=== PATIENT | female | born 1950 | race Caucasian/White ===

== ENCOUNTER → 2017-05-30 10:12 | Outpatient (CLI) | payer MEDICARE, SELFPAY ==
--- NOTE | 2017-05-30 10:16 | RAD_ITS ---
STUDY: X-RAY - PELVIS REASON FOR EXAM: Female, 67 years old. Hip and pelvic pain TECHNIQUE: One view of the pelvis was obtained. COMPARISON: None. FINDINGS: There is a non-specific bowel gas pattern. Normal visualized soft tissue structures. There is narrowing with cortical sclerosis and osteophyte formation of the sacroiliac joint consistent with degenerative osteoarthritic changes. Normal visualized bilateral superior and inferior pubic rami. Normal pubic symphysis. Normal ischial tuberosities. Normal visualized right femoral head. Normal right acetabulum. Normal right hip joint. Normal visualized left femoral head. Normal left acetabulum. Normal left hip joint. 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 Otherwise, within normal limits Electronically Signed: Josiah Roldan DO at 8:21 EST Tel , Service support ,
[2017-05-30 12:23] LABS: Absolute Neutrophil Count 4.3 X10^3/uL (2.0-7.7); Basophil# 0.03 X10^3/uL; Basophil% 0.4 % (0-1); Eosinophil# 0.17 X10^3/uL; Eosinophils% 2.3 % (0-5); Hematocrit 39.9 % (37-47); Lymphocyte % 32.5 % (19-41); Mean Corp Hgb Conc 32.6 g/gl (32-36); Mean Corpuscular Volume 91.9 fL (81-99); Mean Platelet Vol. 9.8 fl (6.2-12.0); Monocyte# 0.47 X10^3/uL; Monocyte% 6.4 % (0-10); Neutrophil # 4.29 X10^3/uL (2.7-7.7); Neutrophil % 58.1 % (47-70); Platelet Count 363 K/mm3 (150-450); RBC Distribution Width CV 14.5 % (11.6-14.6); RBC Distribution Width SD 47.2 fl (35.1-43.9); Red Blood Count 4.34 M/mm3 (4.2-5.4); White Blood Count 7.4 K/mm3 (4.4-11.0)
[2017-05-30 12:30] LABS: POSITIVE COUNT NO; POSITIVE DIFFERENTIAL NO; POSITIVE MORPHOLOGY NO
[2017-05-30 12:38] LABS: Erythrocyte Sedimentation Rate 25 mm/hr (0-30)
[2017-05-30 12:56] LABS: AST(SGOT) 27 U/L (15-37); Alanine Aminotransfer ALT/SGPT 36 U/L (13-56); Albumin, Serum 3.8 g/dL (3.2-5.0); Alkaline Phosphatase 86 U/L (45-117); Anion Gap 7 (5-15); BUN 19 mg/dL (7-18); BUN/Creat Ratio 25.7 RATIO (10-20); Calcium,Total 9.2 mg/dL (8.5-10.1); Chloride 102 mmol/L (98-107); Creatinine, Serum 0.74 mg/dL (0.55-1.02); EST Glomerular Filtration Rate 83 mL/min (>60); Est Glom Filt Rate - Afr Amer 100 mL/min (>60); Glucose 84 mg/dL (74-106); Protein, Total 7.8 g/dL (6.4-8.2); Rheumatoid Factor < 10.0 IU/mL (<15); Sodium Level 138 mmol/L (136-145)
[2017-05-31 14:07] LABS: SJOGREN'S Anti-SS-A test < 0.2 AI (0.0-0.9); SJOGREN'S Anti-SS-B test < 0.2 AI (0.0-0.9)
[2017-05-31 15:04] LABS: ANTINUCLEAR ANTIBODIES DIRECT Positive (Negative)
[2017-06-05 15:59] LABS: CCP IgG Antibodies > 250 units (0-19); HEPATITIS B SURFACE AG Negative (Negative); HLA B27 Negative (.); Hep B Surface Antibodies Non Reactive (.); Hep C Antibodies <0.1 s/co ratio (0.0-0.9)
== END ==
PROVIDERS: Family Provider Nurse Practitioner Family; PCP Nurse Practitioner Family; Visit Provider Internal Medicine Rheumatology
DX: L40.59 Other psoriatic arthropathy (principal); M79.7 Fibromyalgia; M15.9 Polyosteoarthritis, unspecified; L40.8 Other psoriasis; M21.40 Flat foot [pes planus] (acquired), unspecified foot; Z90.5 Acquired absence of kidney; I10 Essential (primary) hypertension; E78.5 Hyperlipidemia, unspecified
CPT/HCPCS: 36415; 72170; 80053; 81374; 85025; 85652; 86038; 86140; 86200; 86235; 86431; 86706; 86803; 87340

== ENCOUNTER → 2017-08-21 08:40 | Outpatient (CLI) | payer MEDICARE, SELFPAY ==
--- NOTE | 2017-08-21 | IMM_PTH ---
PATIENT: LILIANA COURTNEY [facility] U#:[id number] AGE/SX: 74/F ROOM: RE08/21/[address]: Javier Loyola : 1950 BED: DIS: SPEC #: [id number] RECD: 08/22/17 10:32 STATUS: RAMSEY RECristal #: [id number] ALEK: 08/21/17 00:[address]: Abdulaziz Guaman DEPT: IMMUNOHISTOCHEMISTRY RECD BY: Bettye Masters ENTERED: 08/22/17 10:34 SP TYPE: IMMUNO OTHR DR: Javier Loyola Tissues: Left breast, NOS Procedures: CK5-6 (add) CK8 (add) E-CAD (add) HER2 KEN (add) KI-67 (add) P53 (add) DE (add) ER (initial) Comments: @ Ordering doctor for ER edited from to @ by MIRTHA at 08/22/17 1037 @ Ordering doctor for CK5-6. edited from to @ by MIRTHA at 08/22/17 1037 @ Ordering doctor for CK8. edited from to @ by MIRTHA at 08/22/17 1037 @ Ordering doctor for ECAD. edited from to @ by MIRTHA at 08/22/17 1037 @ Ordering doctor for HER2. edited from to @ by MIRTHA at 08/22/17 1037 @ Ordering doctor for KI67. edited from to DR.RCEBUL Hernandez by MIRTHA at 08/22/17 1037 @ Ordering doctor for P53. edited from to @ by MIRTHA at 08/22/17 1037 @ Ordering doctor for DE. edited from to @ by MIRTHA at 08/22/17 1037 @ Submitting doctor edited from to @ by RGOOD at 08/22/17 1037 PHYSICIAN & [place] [address] SPECIMEN INFORMATION: Tissue Source: Left breast biopsy Clinical Info: Abnormal mammogram Specimen Number: [id number] CPT code: 83927, 74565 x4, 49823 x3 METHODOLOGY: Deparaffinized sections of prefer/formalin-fixed tissue or PAP/DQ stained slides are incubated with monoclonal/polyclonal antibodies/oligonucleotide probes. Localization is made via biotin free immunoperoxidase method. Appropriate controls are performed and reacted as expected. Results on target cell population are indicated in the following table: RESULTS: ANTIBODY / CLONE RESULT E-Cad (ECH-6) positive CK8 (29irtfM28) positive CK5-6 (D5 & 1684) negative Ki-67 (30-9) positive, low P53 (DO-7) positive, rare cells, weak MORPHOMETRIC ANALYSIS ER (clone 6F11) >95%, strong DE (clone 16/1E2) >95%, strong Her-2Neu (clone CB11) 0 The prognostic test for HER2 is performed on formalin-fixed paraffin embedded tissue. A 3+ (positive) staining pattern is defined as intense, homogeneous, complete, circumferential membranous staining in >10% of contiguous tumor cells. A similar weak (2+) staining pattern is interpreted as equivocal. SOLEDAD follow-up testing is recommended for all equivocal cases. Positivity/negativity for ER/DE is reported if > or < 1% of the tumor cells are immuno- reactive, respectively. The ASCO/CAP criteria is used for scoring. Reference: Journal of Clinical Oncology, 2013; 31:8444-4884 & 2010; 16:7907-3477. Duration of fixation: 11 Hrs; Sample Adequate: Yes. These assays have not been validated on decalcified tissues. Results should be interpreted with caution given the likelihood of false negativity on decalcified specimens. These tests were developed and their performance characteristics determined by [facility]. They may not have been cleared or approved by the U.S. Food and Drug Administration. The FDA has determined that such clearance or approval is not necessary. INTERPRETATION: Left breast, ultrasound-guided needle core biopsy: Invasive ductal carcinoma with mucinous features, nuclear grade 1. Positive for estrogen receptors (favorable prognostic indicator). Positive for progesterone receptors (favorable prognostic indicator). Negative for overexpression of WFG5qce. SJ:ramin 08/22/17
--- NOTE | 2017-08-21 08:40 | BRBX_PTH ---
PATIENT: LILIANA COURTNEY LOC: [facility] U#:[id number] AGE/SX: 74/F ROOM: RE08/21/[address]: Javier Loyola : 1950 BED: DIS: SPEC #: [id number] RECD: 08/21/17 09:52 STATUS: RAMSEY JAMES #: [id number] ALEK: 08/21/17 08:[address]: Abdulaziz Guaman DEPT: SURGICAL PATHOLOGY RECD BY: Tarun Thomas ENTERED: 08/21/17 12:42 SP TYPE: BREAST BX OTHR DR: Javier Loyola Tissues: Left breast, NOS Procedures: Surgery Specimen Level IV Comments: @ Ordering doctor for SUIV edited from to @ by MIRTHA at 08/21/17 1541 @ Submitting doctor edited from to @ by MIRTHA at 08/21/17 1541 HEADER OPERATION: Ultrasound-guided needle core biopsy left breast PRE-OP DIAGNOSIS: Abnormal mammogram R92.8 TISSUE SUBMITTED: Left breast biopsy ISCHEMIC TIME: 1 minute FIXATION TIME: 11 hours MICROSCOPIC DIAGNOSIS Left breast, ultrasound-guided core biopsy: Invasive ductal carcinoma with mucinous features, nuclear grade 1 (0.6 cm in greatest length). See comment. DINO:ramin 08/22/17 COMMENT Immunohistochemistry ([id number]) supports the above diagnosis. ER/HI/Txz3fwc studies are being performed on sections of tumor and the results from this study will be reported separately ([id number]). MICROSCOPIC DESCRIPTION Slides are reviewed. GROSS DESCRIPTION Received in fixative is one container labeled with the patient's name and designated left breast. The specimen consists of multiple elongated fragments of salinas-yellow fibroadipose tissue that in aggregate measure 2 x 0.5 x 0.1 cm. The entire specimen is submitted in one cassette. / DINO:ramin 08/21/17 TC:0 CPT: 61331 ADDENDUM ADDENDUM ADDENDUM ADDENDUM ADDENDUM ADDENDUM ADDENDUM ADDENDUM 10/09/2017 08:19 ADDENDUM 10/09/2017 08:19 ADDENDUM 10/09/2017 08:19 ADDENDUM 10/09/2017 08:19 ADDENDUM 10/09/2017 08:19 An order for Oncotype testing was received from Dr. Isabel Diggs. This necessitated case review, block and slide selection by pathologist at [facility]. Breast Cancer Recurrence Score = 17 Results of the complete Oncotype testing ([email or web address] report) are viewable in EMR under: Reports - Pathology - Lab Pathology Report, Scanned.
== END ==
PROVIDERS: Family Provider Nurse Practitioner Family; PCP Nurse Practitioner Family; Visit Provider Nurse Practitioner Family
DX: C50.912 Malignant neoplasm of unspecified site of left female breast (principal)
CPT/HCPCS: 88305; 88341; 88342

== ENCOUNTER → 2017-08-30 10:21 | Outpatient (CLI) | payer MEDICARE, SELFPAY ==
--- NOTE | 2017-08-30 10:27 | MRI_ITS ---
STUDY: BILATERAL BREAST MR WITHOUT AND WITH CONTRAST REASON FOR EXAM: Female, 67 years old. History of bilateral breast reduction surgery. Palpable lump in left breast. Left breast biopsy August 23, 2017 showed invasive duct carcinoma with mucinous features. TECHNIQUE: Multi-sequence multi-echo imaging of both breasts was performed with a dedicated breast coil. T1-weighted and T2-weighted images were performed before the administration of contrast. T1-weighted images were also performed after the administration of 10 mL of Gadavist contrast intravenously without complications. COMPARISON: Bilateral mammograms dated August 17, 2017 and Limited left breast ultrasound dated August 17, 2017. FINDINGS: RIGHT BREAST: The breast tissue is fatty with minimal background enhancement. There are no abnormal enhancing masses or areas of non-mass enhancement in the right breast. LEFT BREAST: The breast tissue is fatty with minimal background enhancement. There is a tissue clip marker in the left breast in the area of the biopsy (axial series 500 images 198-to 10). The mass seen on the mammogram and the ultrasound study is actually not identified on the MRI scan. There are no abnormal enhancing masses or areas of non-mass enhancement in the left breast. There are normal-appearing lymph nodes in both axillary. There is no abnormality in the visualized regions of the chest or liver. MRI/Breast w/o and/or W Cont Bilat IMPRESSION: Tissue clip marker in the left breast in the area of the biopsy was no enhancing mass. No other significant abnormality. CATEGORY: BIRADS Category 6: Known Biopsy-Proven Malignancy - Appropriate Action Should Be Taken. A letter regarding these results will be sent to the patient by the facility within 30 days. Electronically Signed: Zachariah Hall MD at 10:40 EDT , Service support ,
== END ==
LOC: MRI 10:22
PROVIDERS: Family Provider Nurse Practitioner Family; PCP Nurse Practitioner Family; Visit Provider Surgery
DX: N63.20 Unspecified lump in the left breast, unspecified quadrant (principal); C50.919 Malignant neoplasm of unspecified site of unspecified female breast
CPT/HCPCS: 77059; A9585; A4216; C8908

== ENCOUNTER 2017-09-06 08:36 | Day surgery (SDC) | payer MEDICARE, SELFPAY ==
--- NOTE | 2017-08-31 08:59 | EKG12_ITS ---
Test Reason : PRE OP Blood Pressure : / mmHG Vent. Rate : 068 BPM Atrial Rate : 068 BPM P-R Int : 166 ms QRS Dur : 082 ms QT Int : 360 ms P-R-T Axes : 040 019 040 degrees QTc Int : 382 ms Normal sinus rhythm Low voltage QRS Borderline ECG Confirmed by IRA BURNETTE, CHONG ([id number]), brands editor CORKY MONET ([id number]) on 09/03/2017 2:56:47 PM Referred By: Abdulaziz Guaman Confirmed By:CHONG ROTH MD
--- NOTE | 2017-08-31 09:07 | RAD_ITS ---
STUDY: X-RAY CHEST REASON FOR EXAM: Female, 67 years old. Preoperative evaluation. History of breast cancer. TECHNIQUE: PA and lateral views of the chest. COMPARISON: None. FINDINGS: The lungs are clear and expanded. Scattered calcified granulomas. There is no demonstrated pleural abnormality. Normal size heart. Normal mediastinum and estee. Normal visualized pulmonary arteries. There is atherosclerotic calcification of the aortic arch with tortuosity. There are diffuse degenerative changes of the visualized thoracic spine. Normal visualized ribs, clavicles, and shoulders. There is no demonstrated abnormality of the visualized soft tissue structures of the upper abdomen. RAD/Chest PA and Lateral IMPRESSION: Normal x-ray examination of the chest. Electronically Signed: Salinas Neal MD at 9:34 EDT Tel [phone], Service support ,
[2017-08-31 09:26] LABS: Hematocrit 37.7 % (37-47); Hemoglobin 12.4 g/dl (12.0-15.0); Mean Corp Hgb Conc 32.9 g/gl (32-36); Mean Corpuscular Hgb 30.4 pg (27.0-32.0); Mean Corpuscular Volume 92.4 fL (81-99); Mean Platelet Vol. 9.5 fl (6.2-12.0); Platelet Count 365 K/mm3 (150-450); RBC Distribution Width CV 14.4 % (11.6-14.6); RBC Distribution Width SD 47.2 fl (35.1-43.9); Red Blood Count 4.08 M/mm3 (4.2-5.4); Scan Indicated on CBC? Y/N NO; White Blood Count 9.5 K/mm3 (4.4-11.0)
[2017-08-31 09:54] LABS: ALB/GLOB Ratio 0.9 RATIO (0.9-2.4); AST(SGOT) 14 U/L (15-37); Alanine Aminotransfer ALT/SGPT 22 U/L (13-56); Albumin, Serum 3.6 g/dL (3.2-5.0); Alkaline Phosphatase 73 U/L (45-117); Anion Gap 8 (5-15); BUN 15 mg/dL (7-18); BUN/Creat Ratio 18.8 RATIO (10-20); Calcium,Total 9.1 mg/dL (8.5-10.1); Chloride 105 mmol/L (98-107); EST Glomerular Filtration Rate 76 mL/min (>60); Est Glom Filt Rate - Afr Amer 92 mL/min (>60); Globulin 3.9 g/dL (2.2-4.2); Glucose 109 mg/dL (74-106); Potassium 4.2 mmol/L (3.5-5.1); Protein, Total 7.5 g/dL (6.4-8.2); Sodium Level 140 mmol/L (136-145)
[2017-09-06] VITALS (11 sets, daily range): BP systolic 105–133; BP diastolic 55–97; PULSE 72–88; RESP 16; TEMP 35.8–36.7; O2SAT 92–99; BMI 37.5
--- NOTE | 2017-09-06 | IMM_PTH ---
PATIENT: LILIANA COURTNEY LOC: [facility] [place] U#:[id number] AGE/SX: 67/F ROOM: RE09/06/[address]: Dr. Abdulaziz Guaman MD : 1950 BED: DIS: 09/06/2017 SPEC #: [id number] RECD: 09/11/17 12:33 STATUS: RAMSEY REQ #: [id number] ALEK: 09/06/17 00:[address]: Abdulaziz Guaman DEPT: IMMUNOHISTOCHEMISTRY RECD BY: Bettye Masters ENTERED: 09/11/17 12:34 SP TYPE: IMMUNO OTHR DR: Javier Loyola, REINIER-Stefano Tissues: A - Axillary lymph node, NOS Procedures: CK7 (add) Pankeratin (initial) PHYSICIAN & INSTITUTION [place] [address] SPECIMEN INFORMATION: Tissue Source: A ? Left sentinel lymph node biopsy Clinical Info: Malignant neoplasm of lower inner quadrant of left breast Specimen Number: [id number] CPT code: 22822, 03831 METHODOLOGY: Deparaffinized sections of prefer/formalin-fixed tissue or PAP/DQ stained slides are incubated with monoclonal/polyclonal antibodies/oligonucleotide probes. Localization is made via biotin free immunoperoxidase method. Appropriate controls are performed and reacted as expected. Results on target cell population are indicated in the following table: RESULTS: ANTIBODY / CLONE RESULT Block A1 AE1-3 (AE1/AE3/PCK26) negative CK7 (OV-TL12/30) negative These tests were developed and their performance characteristics determined by [facility]. They may not have been cleared or approved by the U.S. Food and Drug Administration. The FDA has determined that such clearance or approval is not necessary. INTERPRETATION: A. Left sentinel lymph node, biopsy: One lymph node, negative for metastatic carcinoma. SJ:ramin 09/12/17
--- NOTE | 2017-09-06 | AXNB_PTH ---
PATIENT: LILIANA COURTNEY LOC: [facility] [place] U#:[id number] AGE/SX: 67/F ROOM: RE09/06/[address]: Dr. Abdulaziz Guaman MD : 1950 BED: DIS: 09/06/2017 SPEC #: [id number] RECD: 09/06/17 11:09 STATUS: RAMSEY RECristal #: [id number] ALEK: 09/06/17 00:[address]: Abdulaziz Guaman DEPT: SURGICAL PATHOLOGY RECD BY: Bettye Masters ENTERED: 09/06/17 12:34 SP TYPE: AX NODE BX OTHR DR: Javier Loyola, LYE BOILER-C Tissues: A - Axillary lymph node, NOS B - Left breast, NOS Procedures: Frozen Section (charge) Surgery Specimen Level V Frozen (no charge) HEADER OPERATION: Breast lumpectomy, sentinel node, ultrasound-guided NL PRE-OP DIAGNOSIS: Malignant neoplasm of lower inner quadrant of left breast TISSUE SUBMITTED: A ? Left breast sentinel lymph node to path at 1106, B ? Left breast mass ? wire comes out lateral, short stitch superior, skin anterior, to mammography at 1116 FROZEN SECTION DIAGNOSIS A. Left sentinel lymph node, biopsy: One lymph node, negative for metastatic carcinoma. SJ:ramin 09/06/17 MICROSCOPIC DIAGNOSIS A. Left sentinel lymph node, biopsy: One lymph node, negative for metastatic carcinoma. B. Left breast mass, lumpectomy with needle localization: Invasive mucinous carcinoma (colloid carcinoma). See cancer summary below. INVASIVE BREAST CANCER SUMMARY: Specimen ? partial breast Procedure ? excision with wire-guided localization Lymph node sampling ? sentinel lymph node Specimen integrity ? single intact specimen Specimen size ? 5.5 x 5 x 3 cm Specimen laterality - left Tumor site ? lower inner quadrant (as per clinical information) Tumor size ? 0.8 x 0.7 x 0.6 cm (measured microscopically). See comment. Tumor focality ? single focus of invasive carcinoma Macroscopic and Microscopic extent of tumor: Skin ? invasive carcinoma does not invade into the dermis or epidermis Nipple ? not applicable Skeletal muscle - not applicable Ductal carcinoma in situ (DCIS) ? no ductal carcinoma in situ is present. Lobular carcinoma in situ (LCIS) ? not identified Histologic type of invasive carcinoma ? invasive mucinous carcinoma (colloid carcinoma) Histologic Grade (Juan grade): Glandular/tubular differentiation - score 2 Nuclear pleomorphism - score 1 Mitotic count ? score 1 Overall grade - 1 (score of 4) Margins: Margins uninvolved by invasive carcinoma. The tumor is 1 cm away from the closest superior margin. Treatment effect: Response to presurgical (neoadjuvant) therapy - no known presurgical therapy. Lymph-Vascular invasion ? not identified Dermal lymph-vascular invasion - not identified Lymph nodes: Number of sentinel lymph nodes examined - 1 Total number of lymph nodes examined (sentinel and nonsentinel) - 1 Number of lymph nodes with macrometastases, micrometastases and isolated tumor cells - 0 Method of evaluation of sentinel lymph nodes - H & E, multiple levels and IHC. Distance metastasis ? not applicable Additional pathologic findings ? intraductal hyperplasia with focal atypia. Changes consistent with previous biopsy site. Ancillary studies - previously performed on section of tumor ([id number] / [id number]). ER ? positive (>95%, strong) NV - positive (>95%, strong) Her2 elsie ? negative (0) Microcalcifications ? not identified Clinical history - Please make reference to previous specimen ([id number]) left breast, ultrasound-guided core biopsy with diagnosis of invasive ductal carcinoma with mucinous features. PATHOLOGIC STAGE: pT1b pN0(sn) Mx The above summary is in compliance with [employer] of [employer] [place] Path[employer] (CAP) Cancer Protocols Checklist and [place] Joint Committee on Cancer (AJCC), Staging Manual, 8th Ed. SJ:ramin 09/11/17 COMMENT A. The lymph node is negative for metastatic carcinoma on multiple H & E levels and immunohisto-chemical stains for cytokeratins ([id number]). B. The tumor is present in two blocks (#3 and 4). Case has been reviewed in consultation with Dr. Schilling who concurs with the above diagnosis. IDC:AM MICROSCOPIC DESCRIPTION Slides are reviewed. GROSS DESCRIPTION A - Received fresh for frozen section diagnosis labeled with the patient's name is a specimen designated left breast sentinel lymph node. The specimen consists of a piece of adipose tissue containing one nodule consistent with lymph node measuring 4.5 x 3.5 x 1.5 cm. The lymph node measures 1 cm in greatest dimension. The entire specimen is submitted in two cassettes as follows: 1 ? frozen section, one lymph node bisected, 2 ? rest of the specimen. / :ramin 09/06/17 B - Received fresh for intraoperative consultation labeled with the patient's name is a specimen designated left breast mass. The specimen consists of a piece of fibroadipose tissue with needle localization measuring 5.5 x 5 x 3 cm. A piece of skin is noted anteriorly measuring 3 x 1.2 cm. The specimen is oriented as follows: wire ? lateral, short stitch ? superior, skin anterior. The specimen is inked as follows: anterior ? yellow, posterior ? black, superior ? blue, inferior ? green, medial ? red and lateral ? blue. Serial sections reveal a biopsy cavity measuring 1 x 1 x 0.5 cm. This cavity is 1 cm away from the closest superior margin of the specimen. This information is conveyed to the surgeon intraoperatively. Sections of the rest of the tissue reveal yellow adipose cut surfaces mixed with salinas-white fibrous area. Middle [employer] sections are submitted in eight cassettes as follows: 1 - perpendicular medial, lateral and inferior margins, 2 ? perpendicular anterior and posterior margins and skin, 3 & 4 ? entire biopsy cavity with surrounding tissue (3 contains closest superior margin), 5-9 - sales representative health insurance sections from the other areas. / DINO:ramin 09/07/17 TC:0 CPT: 51688 x2, 36413, 11004
[2017-09-06] MEDS: Bupivacaine Mpf 0.5% 30 ML VIAL (10:11)
--- NOTE | 2017-09-06 10:24 | PCM.DC.BS ---
Discharge Diet: No Restrictions Discharge Activity: May Not Drive - for 2-3 days or while taking narcotic pain meds. May shower in (days): 1 Lifting Restrictions: 10 pounds for 1 week. Call your doctor if your incision/area has: Continuous Slow Oozing, Sudden Increased Bleeding Call your doctor if you observe: Fever of 101 or Higher Suture Line Care: Avoid Pulling/Pushing, Avoid Pinching/Bending Remove Dressing in (days):: 1 - Remove bulky dressing tomorrow. May leave any opsite dressing for 3-4 days[address] Keep dressing in place until your follow-up appointment. Additional Dressing/Incision Instructions:: Remove bulky dressing tomorrow. May leave any opsite dressing for 3-4 days. Keep dressing in place until your follow-up appointment. Allergies/Adverse Reactions: Allergies Penicillins Allergy (Mild, Verified 08/30/17 15:32) itching Medications to take at Discharge betamethasone dipropionate 0.05 % topical ointment 1 applic TOPICAL QDAY 08/21/17 calcium carbonate 600 mg calcium (1,500 mg) tablet 600 mg PO QDAY tab 08/21/17 cholecalciferol (vitamin D3) 2,000 unit capsule 2,000 unit PO QDAY 08/21/17 duloxetine 30 mg capsule,delayed release 30 mg PO QDAY 08/21/17 etodolac 500 mg tablet 500 mg PO PRN PRN tab 08/21/17 fluticasone 50 mcg/actuation nasal spray,suspension 1 spray INTRANASAL PRN PRN 08/21/17 folic acid 1 mg tablet 1 mg PO QDAY 08/21/17 lisinopril 40 mg tablet 40 mg PO QDAY 08/21/17 lovastatin 40 mg tablet 40 mg PO QDAY 08/21/17 methotrexate sodium 2.5 mg tablet 20 mg PO MO tab 08/21/17 multivitamin,tu-rpyu-hxnbceam tablet 1 tab PO QDAY 08/21/17 olopatadine 0.1 % eye drops 1 drp OPHTHALMIC QHS 08/21/17 turmeric root extract 500 mg capsule 500 mg PO BID 08/21/17 vitamin E (dl, acetate) 400 unit capsule 400 unit PO QDAY 08/21/17 Cetirizine HCl [Zyrtec] 10 mg PO DAILY 08/30/17 Hydrocodone Bitart/Apap 5-325 [[place] 5MG-325MG] 1 tablet PO Q6H PRN PRN 3 Days #10 tablet 09/06/17 The following prescriptions were given: Hydrocodone Bitart/Apap 5-325 [[place] 5MG-325MG] 1 tablet PO Q6H PRN PRN 3 Days #10 tablet PRN Reason: Pain Primary Care Physician: Javier Loyola, CERTIFIED NOVELL ADMINISTRATOR-C [Primary Care Provider] - Please Follow Up With: Abdulaziz Guaman MD When: [phone] Office appt approximately 10 days Please Follow Up With:
--- NOTE | 2017-09-06 11:20 | BI_ITS ---
SURGICAL BREAST SPECIMEN RADIOGRAPH CLINICAL: Document presence of tissue clip marker in biopsy specimen. FINDINGS: Specimen shows presence of tissue clip marker. Electronically Signed: Salinas Neal MD at 13:46 EDT Tel [phone], Service support , BI/Breast Biopsy Specimen
--- NOTE | 2017-09-06 11:36 | OP.PCM_ITS ---
Problem List (1) Breast cancer Status: Acute Qualifiers: Breast location: lower inner quadrant of breast Estrogen receptor status: positive Patient sex: female Laterality: left Qualified Code(s): C50.312 - Malignant neoplasm of lower-inner quadrant of left female breast; Z17.0 - Estrogen receptor positive status [ER+] Report of Operation Date of Procedure: 09/06/17 Pre-Operative Diagnosis: Invasive ductal carcinoma lower inner left breast 7 o' clock position Post-Operative Diagnosis: Same Surgery/Procedure Performed:: Ultrasound-guided wire localization lower inner left breast with wire localized lumpectomy and blue dye left axillary sentinel lymph node biopsy Description of Surgical Findings:: Timeout and informed consent was obtained. 67-year-old female was taken to the operating. General general anesthesia. The left arm was carefully wrapped with soft roll and placed at right angles to the table. The left periareolar breast was prepped with alcohol. 4 cc of methylene blue dye was used. This was then chased with 10 cc of saline. Massage was performed for 3 minutes. The left breast was sterilely prepped and draped. Under ultrasound guidance the 7:00 lesion was identified with a marking clip in place. A 20-gauge Kopans needle was advanced under ultrasound guidance into the lesion. The wire was displaced. Imaging demonstrated excellent localization. A transverse oblique incision was made in the left axilla. Sharp dissection carried down through the substance tissue. Hemostasis obtained with electrocautery. 2 lymphatic channels were identified draining to the same blue lymph node. This was dissected free. Some additional deeper fibrofatty tissue was resected. Visual inspection and palpation failed to reveal any additional enlarged lymph nodes. Node removed was not enlarged or otherwise suspicious. Visualization would reveal any additional blue dye tracking. Hemostasis was nicely intact. That wound was 3-0 Vicryl and the skin edges proximate running septic or 4 Monocryl. 0.5% Marcaine was used as local anesthetic and it was anesthetized. The patient's 7:00 infra-areolar lower inner left breast lesion was identified. Patient has had previous breast reduction surgery. Because of its positioning only means of excision was to do a vertical elliptical excision. I performed that used electrocautery to completely dissect around the lesion. The wire was utilized to assist with that resection. Specimen was excised intact sent for mammography with a lesion and marking clip in question was identified. The specimen was then sent to pathology and the biopsy cavity and clear margin was identified. The wound was irrigated with saline. The wound was approximated deep layer of interrupted 3-0 Vicryl and the skin edges approximated with interrupted 4 Monocryl subdermal stitches. Again the 0.5% Marcaine was used as local anesthetic. Throughout the procedure total 30 cc was used. Steri-Strips Telfa OpSite bulky dry dressings applied. Sponge instrument and needle count were reported to the surgeon to be correct. Blood loss was quite minimal. She tired procedure well was taken to the recovery or insect condition without apparent complication. Drains none. Specimens left axillary sentinel lymph node and left lower inner breast mass. Blood loss minimal. Abdulaziz Guaman M.D., F.A.C.S. Type of Anesthesia:: General Anesthesiologist: Todd Castillo
== END 2017-09-06 14:49 | disposition home or self-care (01) ==
LOC: SDC 08:37 → AC 08:38
PROVIDERS: Family Provider Nurse Practitioner Family; PCP Nurse Practitioner Family; Visit Provider Surgery
PROC: (CPT 19301; principal; 2017-09-06 10:00)
DX: C50.312 Malignant neoplasm of lower-inner quadrant of left female breast (principal); Z17.0 Estrogen receptor positive status [ER+]; I10 Essential (primary) hypertension; G25.81 Restless legs syndrome; K58.9 Irritable bowel syndrome, unspecified; M06.9 Rheumatoid arthritis, unspecified; Z79.899 Other long term (current) drug therapy; E78.5 Hyperlipidemia, unspecified; L40.9 Psoriasis, unspecified
CPT/HCPCS: 19301; 38525; 38900; 36415; 71046; 76098; 80053; 85027; 88305; 88307; 88331; 88341; 88342; 93005; J7120; J2405; J3490

== ENCOUNTER → 2017-09-17 15:26 | Outpatient (CLI) | payer MEDICARE, SELFPAY ==
--- NOTE | 2017-09-17 15:26 | DT_ITS ---
This patient was seen during an EMR downtime September 17, 2017 - September 24, 2017. This patient may have a combination of paper and electronic documentation or all paper documentation. All documentation is viewable within the e-chart portion of [employer] for each patient visit.
[2017-09-21 22:06] LABS: Color, Urine Yellow (Yellow); Glucose, Dipstick NEGATIVE (Normal); Ketone-Dipstick Negative (Negative); Protein-Dipstick 15 mg/dl (Negative); Specific Gravity, Urine 1.025 (1.002-1.030); Urine Bilirubin Dipstick Negative (Negative); Urine Clarity Sl Cloudy (Clear)
[2017-09-21 22:07] LABS: Leukocyte Esterase-Dipstick 2+ /ul (Negative); Nitrite-Dipstick Positive (Negative); Occult Blood-Urine 50 /ul (Negative); Urine Urobilinogen Normal (Normal)
[2017-09-21 22:57] LABS: Hematocrit 37.4 % (37-47); Hemoglobin 11.7 g/dl (12.0-15.0); Mean Corp Hgb Conc 31.3 g/gl (32-36); Mean Corpuscular Hgb 29.6 pg (27.0-32.0); Mean Corpuscular Volume 94.7 fL (81-99); Mean Platelet Vol. 10.1 fl (6.2-12.0); Neutrophil % 65.3 % (47-70); POSITIVE COUNT NO; POSITIVE DIFFERENTIAL NO; POSITIVE MORPHOLOGY NO; Platelet Count 353 K/mm3 (150-450); RBC Distribution Width CV 14.3 % (11.6-14.6); RBC Distribution Width SD 46.3 fl (35.1-43.9); Red Blood Count 3.95 M/mm3 (4.2-5.4); White Blood Count 11.3 K/mm3 (4.4-11.0)
[2017-09-21 22:58] LABS: Absolute Lymphocyte Count 2.95 X10^3/ul (0.83-4.51); Absolute Neutrophil Count 7.4 X10^3/uL (2.0-7.7); Basophil# 0.02 X10^3/uL; Basophil% 0.2 % (0-1); Eosinophil# 0.13 X10^3/uL; Eosinophils% 1.1 % (0-5); Lymphocyte # 2.95 X10^3/ul (4.0); Monocyte# 0.79 X10^3/uL; Neutrophil # 7.41 X10^3/uL (2.7-7.7)
[2017-09-24 17:09] LABS: Protein, Urine (Random) 9.5 mg/dL (<11.9); Protein:Creat Ratio 60 mg/g CRE (0-200)
[2017-09-24 17:10] LABS: ALB/GLOB Ratio 1.1 RATIO (0.9-2.4); AST(SGOT) 19 U/L (15-37); Alanine Aminotransfer ALT/SGPT 23 U/L (13-56); Albumin, Serum 3.7 g/dL (3.2-5.0); Alkaline Phosphatase 79 U/L (45-117); BUN 22 mg/dL (7-18); BUN/Creat Ratio 23.7 RATIO (10-20); Chloride 104 mmol/L (98-107); Creatinine, Serum 0.93 mg/dL (0.55-1.02); EST Glomerular Filtration Rate 64 mL/min (>60); Est Glom Filt Rate - Afr Amer 78 mL/min (>60); Globulin 3.4 g/dL (2.2-4.2); Glucose 105 mg/dL (74-106); Protein, Total 7.1 g/dL (6.4-8.2); Sodium Level 142 mmol/L (136-145)
[2017-09-24 17:11] LABS: Anion Gap 11 (5-15)
== END ==
PROVIDERS: Family Provider Nurse Practitioner Family; PCP Nurse Practitioner Family; Visit Provider Internal Medicine Rheumatology
DX: L40.59 Other psoriatic arthropathy (principal); Z79.899 Other long term (current) drug therapy; M35.00 Sjogren syndrome, unspecified; M79.7 Fibromyalgia; M15.9 Polyosteoarthritis, unspecified; L40.8 Other psoriasis
CPT/HCPCS: 36415; 80053; 81002; 82570; 84156; 85025; 86038; 86160; 86225; 86235

== ENCOUNTER 2018-04-01 12:20 | Outpatient (RCR) | payer MEDICARE, SELFPAY ==
[2017-10-23 09:58] VITALS: BMI 37.2
[2018-01-17 11:37] VITALS: BMI 35.9
[2018-04-01 13:45] LABS: Absolute Lymphocyte Count 2.58 X10^3/ul (0.83-4.51); Absolute Neutrophil Count 5.1 X10^3/uL (2.0-7.7); Basophil# 0.03 X10^3/uL; Basophil% 0.4 % (0-1); Eosinophil# 0.18 X10^3/uL; Eosinophils% 2.1 % (0-5); Hematocrit 37.7 % (37-47); Hemoglobin 12.1 g/dl (12.0-15.0); Lymphocyte # 2.58 X10^3/ul (4.0); Lymphocyte % 30.2 % (19-41); Mean Corp Hgb Conc 32.1 g/gl (32-36); Mean Corpuscular Hgb 30.3 pg (27.0-32.0); Mean Corpuscular Volume 94.5 fL (81-99); Mean Platelet Vol. 9.8 fl (6.2-12.0); Monocyte# 0.59 X10^3/uL; Monocyte% 6.9 % (0-10); Neutrophil # 5.11 X10^3/uL (2.7-7.7); Neutrophil % 59.9 % (47-70); Platelet Count 356 K/mm3 (150-450); RBC Distribution Width CV 14.6 % (11.6-14.6); Red Blood Count 3.99 M/mm3 (4.2-5.4); White Blood Count 8.5 K/mm3 (4.4-11.0)
[2018-04-01 13:46] LABS: POSITIVE COUNT NO; POSITIVE DIFFERENTIAL NO; POSITIVE MORPHOLOGY NO
[2018-04-01 13:55] LABS: AST(SGOT) 12 U/L (15-37); Alanine Aminotransfer ALT/SGPT 22 U/L (13-56); Albumin, Serum 3.7 g/dL (3.2-5.0); Alkaline Phosphatase 83 U/L (45-117); Anion Gap 5 (5-15); BUN 17 mg/dL (7-18); BUN/Creat Ratio 22.2 RATIO (10-20); Calcium,Total 8.9 mg/dL (8.5-10.1); Chloride 104 mmol/L (98-107); Creatinine, Serum 0.77 mg/dL (0.55-1.02); EST Glomerular Filtration Rate 79 mL/min (>60); Est Glom Filt Rate - Afr Amer 96 mL/min (>60); Globulin 3.8 g/dL (2.2-4.2); Glucose 99 mg/dL (74-106); Potassium 4.1 mmol/L (3.5-5.1); Protein, Total 7.5 g/dL (6.4-8.2); Sodium Level 138 mmol/L (136-145)
--- OUTSIDE RECORDS SUMMARY | 2018-07-04 02:44 | XMS RPT_ITS ---
:1950 Author Organization OHIP Support Name Relationship Address Phone R Unavailable Unavailable Unavailable TARLETON JAKE Unavailable [address] + [place] [address] TARLETON, CLAUDIA Unavailable Unavailable + R Unavailable Unavailable Unavailable TARLETON, JAKE Unavailable [address] + [place] [address] TARLETON, CLAUDIA Unavailable Unavailable + R Unavailable Unavailable Unavailable TARLETON, JAKE Unavailable [address] + [place] [address] TARLETON, CLAUDIA Unavailable Unavailable + TARLETON JAKE Unavailable Unavailable + TARLETON JAKE Unavailable Unavailable + R Unavailable Unavailable Unavailable TARLETON, JAKE Unavailable [address] + [place] [address] TARLETON, CLAUDIA Unavailable Unavailable + R Unavailable Unavailable Unavailable TARLETON JAKE Unavailable [address] + [place] [address] TARLETON, CLAUDIA Unavailable Unavailable + R Unavailable Unavailable Unavailable TARLETON JAKE Unavailable [address] + [place] [address] TARLETON, CLAUDIA Unavailable . + [place] [address] R Unavailable Unavailable Unavailable TARLETON JAKE Unavailable [address] + [place] [address] TARLETON, CLAUDIA Unavailable . + [place] [address] R Unavailable Unavailable Unavailable TARLETON JAKE Unavailable [address] + [place] [address] TARLETON, CLAUDIA Unavailable . + [place] [address] R Unavailable Unavailable Unavailable TARLETON, JAKE Unavailable [address] + [place] [address] TARLETON, CLAUDIA Unavailable . + [place] [address] R Unavailable Unavailable Unavailable TARLETON, JAKE Unavailable [address] + [place] [address] TARLETON, CLAUDIA Unavailable . + [place] [address] R Unavailable Unavailable Unavailable TARLETON, JAKE Unavailable [address] + [place] [address] TARLETON, CLAUDIA Unavailable . + [place] [address] R Unavailable Unavailable Unavailable TARLETON, JAKE Unavailable [address] + [place] [address] TARLETON, CLAUDIA Unavailable Unavailable + R Unavailable Unavailable Unavailable TARLETON, JAKE Unavailable [address] + [place] [address] TARLETON, CLAUDIA Unavailable . + [place] [address] R Unavailable Unavailable Unavailable TARLETON, JAKE Unavailable [address] + [place] [address] TARLETON, CLAUDIA Unavailable . + [place] [address] R Unavailable Unavailable Unavailable TARLETON, JAKE Unavailable [address] + [place] [address] TARLETON, CLAUDIA Unavailable . + [place] [address] R Unavailable Unavailable Unavailable TARLETON, JAKE Unavailable [address] + [place] [address] TARLETON, CLAUDIA Unavailable Unavailable + [place] [address] R Unavailable Unavailable Unavailable TARLETON, JAKE Unavailable [address] + [place] [address] TARLETON, CLAUDIA Unavailable Unavailable + [place] [address] R Unavailable Unavailable Unavailable TARLETON, JAKE Unavailable [address] + [place] [address] TARLETON, CLAUDIA Unavailable . + [place] [address] R Unavailable Unavailable Unavailable TARLETON, JAKE Unavailable [address] + [place] [address] TARLETON, CLAUDIA Unavailable Unavailable + [place] [address] [place] [address] Unavailable [address] + [place] [address] TARLETON, JAKE Unavailable [address] + [place] [address] TARLETON, CLAUDIA Unavailable . + [place] [address] [place] [address] Unavailable [address] + [place] [address] TARLETON, JAKE Unavailable [address] + [place] [address] TARLETON, CLAUDIA Unavailable Unavailable + [place] [address] [place] [address] Unavailable [address] + [place] [address] TARLETON, JAKE Unavailable [address] + [place] [address] TARLETON, CLAUDIA Unavailable / + [place] [address] TARLETON, JAKE Unavailable Unavailable + TARLETON, JAKE Unavailable Unavailable + [place] [address] Unavailable . [address] [place] [address] TARLETON, JAKE Unavailable [address] + [place] [address] TARLETON, CLAUDIA Unavailable / + [place] [address] Care Team Providers Name Role Phone MARISEL LOYOLA CNP Attending Unavailable MARISEL LOYOLA CNP Primary Care Unavailable ISABEL DIGGS MD Attending Unavailable MARISEL LOYOLA CNP Primary Care Unavailable Sadia Woo Attending Unavailable Sadia Woo Referring Unavailable Marisel Loyola PLC CONTROLS ENGINEER-C Primary Care Unavailable Vellanki, Sadia Attending Unavailable Vellanlizabeth, Sadia Referring Unavailable MillaMarisel freire. PLC CONTROLS ENGINEER-C Primary Care Unavailable Vellanki, Sadia Attending Unavailable MILLA, MARISEL Primary Care Unavailable MILLA, MARISEL Attending Unavailable MILLA, MARISEL Referring Unavailable MILLA, MARISEL Primary Care Unavailable Isckarus, Mansour Attending Unavailable Cebul, Abdulaziz Referring Unavailable TateMarisel freire. PLC CONTROLS ENGINEER-C Primary Care Unavailable Telly Templeton Consulting Unavailable Isckarus, Mansour Consulting Unavailable Cebul, Abdulaziz Attending Unavailable MillaMarisel freire. PLC CONTROLS ENGINEER-C Referring Unavailable Cebul, Abdulaziz Attending Unavailable TateMarisel freire. PLC CONTROLS ENGINEER-C Referring Unavailable TateMarisel freire. PLC CONTROLS ENGINEER-C Primary Care Unavailable Vellanki, Sadia Attending Unavailable Chilo, Sadia Referring Unavailable TateMarisel freire. PLC CONTROLS ENGINEER-C Primary Care Unavailable Cebul, Abdulaziz Attending Unavailable Cebul, Abdulaziz Attending Unavailable Cebul, Abdulaziz Referring Unavailable MillaMarisel freire. PLC CONTROLS ENGINEER-C Primary Care Unavailable Cebul, Abdulaziz Attending Unavailable Cebul, Abdulaziz Referring Unavailable TateMarisel freire. PLC CONTROLS ENGINEER-C Primary Care Unavailable Cebul, Abdulaziz Attending Unavailable MILLA, MARISEL Referring Unavailable MILLA, MARISEL Primary Care Unavailable Isckarus, Javierour Attending Unavailable Cebul, Abdulaziz Referring Unavailable MillaMarisel freire. PLC CONTROLS ENGINEER-C Primary Care Unavailable Telly Templeton Consulting Unavailable Isckarus, Mansour Consulting Unavailable Cebul, Abdulaziz Attending Unavailable MILLA, MARISEL Referring Unavailable MILLA, MARISEL Primary Care Unavailable Jose HORVATH-C, Cynthia Attending Unavailable TateMarisel jacome. PLC CONTROLS ENGINEER-C Referring Unavailable MillaMarisel freire. PLC CONTROLS ENGINEER-C Primary Care Unavailable Kaiser Lau Attending Unavailable Cebul, Abdulaziz Referring Unavailable TateMarisel freire. PLC CONTROLS ENGINEER-C Primary Care Unavailable Isckarus, Mansour Consulting Unavailable Sherri Edwards Attending Unavailable Cebul, Abdulaziz Referring Unavailable TateMarisel freire. PLC CONTROLS ENGINEER-C Primary Care Unavailable Isckarus, Mansour Consulting Unavailable Kurtis Florez Attending Unavailable Cebul, Abdulaziz Referring Unavailable Isckarus, Mansour Attending Unavailable Cebul, Abdulaziz Referring Unavailable MillaMarisel freire. PLC CONTROLS ENGINEER-C Primary Care Unavailable Isckarus, Mansour Consulting Unavailable Jose PA-C, Cynthia Attending Unavailable Tate, Marisel D. PLC CONTROLS ENGINEER-C Referring Unavailable Jose WEBB, Cynthia Attending Unavailable Marisel Loyola PLC CONTROLS ENGINEER-Stefano Referring Unavailable Marisel Loyola PLC CONTROLS ENGINEER-Stefano Primary Care Unavailable CaterinaJavierseth Attending Unavailable Abdulaziz Guaman Referring Unavailable Marisel Loyola PLC CONTROLS ENGINEER-Stefano Primary Care Unavailable Ernestous, Mansour Consulting Unavailable Isabel Diggs Attending Unavailable Abdulaziz Guaman Referring Unavailable Marisel Loyola PLC CONTROLS ENGINEER-C Primary Care Unavailable Telly Templeton Consulting Unavailable PROBLEMS PROBLEMS DATE TYPE CONDITION / CODE ATTENDING STATUS SOURCE 01/17/2018 Unknown C50.912 - Malignant Isckarus, Active [place] neoplasm of [facility] unspecified site of Hospital left female breast / Repository C50.912(ICD-10) 01/17/2018 Unknown 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, 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 [facility] aromatase inhibitors Hospital / Z79.811(ICD-10) Repository 04/15/2018 Unknown 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 - Other Vellanki, 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 arthropathy / Hospital L40.59(ICD-10) Repository 10/22/2017 Unknown Z17.0 - Estrogen Grace, Sherri Active [place] receptor positive Community status [ER+] / Hospital Z17.0(ICD-10) Repository 10/10/2017 Unknown M35.00 - Sicca Vellanki, Sadia Active [place] syndrome, Community unspecified / Hospital M35.00(ICD-10) Repository 09/06/2017 Unknown G89.18 - Other acute Cebukamilah, Abdulaziz Active [place] postprocedural pain Community / G89.18(ICD-10) Hospital Repository 10/19/2017 Unknown I10 - Essential Gautam, [place] Active [place] (primary) Community hypertension / Hospital I10(ICD-10) Repository 08/25/2017 Unknown N63.20 - Unspecified Cebul, Abdulaziz Active [place] lump in the left Community breast, unspecified Hospital quadrant / Repository N63.20(ICD-10) 08/25/2017 Unknown C50.919 - Malignant Cebul, Abdulaziz Active [place] neoplasm of Community unspecified site of Hospital unspecified female Repository breast / C50.919(ICD-10) 08/25/2017 Unknown C50.312 - Malignant Abdulaziz Guaman Active [place] neoplasm of [facility] Hospital of left female Repository breast / C50.312(ICD-10) 08/21/2017 Unknown R92.8 - Other MILLA, Krystian Gallardooster abnormal and MARISEL [facility] Hospital findings on Repository diagnostic imaging of breast / R92.8(ICD-10) PROCEDURES PROCEDURES No Procedure Records FoundRESULTS RESULTS ONCOLOGY VISIT REPORT Observed: 04/18/2018 Status: F Source: [place] 10:39 AM [facility] REPOSITORY [facility] Oncology [address] [place] [address] OFFICE VISIT Date of Service: 04/18/18 1013 MR#: [id number] Acct: [id number] Name: LILIANA MARTÍNEZ Rep #: [id number] : 1950 From: Isabel Diggs MD Age/Sex: 68/F Location: OMD Status: Signed - Problem List (1) Primary cancer of left female breast Status: Chronic - Date of Service Date of Service:: 04/18/18 - Chief Complaint Breast cancer on treatment - History of Present Illness Patient is a 67-year-old female who presented after she felt a lump in her left breast confirm on a diagnostic mammogram. August 21, 2017 she underwent an ultrasound- guided needle core biopsy from the left breast revealing an invasive ductal carcinoma with mucinous features. Tumor was ER positive (over 95%), ID positive (over 95%) and HER-2/elsie negative. On September 06 she underwent a left breast partial mastectomy with sentinel lymph node biopsy revealing a single focus of invasive ductal cancer measuring 8 mm in maximum diameter overall grade 1 (total score of 4) negative margin 1 cm, lymphovascular invasion not identified, and no metastatic cancer found in 1 sentinel lymph node. Oncotype DX score 17 (low risk group) Treatment: September 06, 2017 left breast partial mastectomy with sentinel lymph node biopsy. Adjuvant Arimidex: October 2017 - Past Medical/Social History Past Medical History Cancer: Breast cancer Social History Social History: No changes Smoking Status Never smoker Review of Systems Constitutional:: Reports: - - Infrequent, tolerable hot flashes. Denies: Fever, Sweats, Weight loss, Appetite change, Chills Cardiovascular:: Denies: Chest pain, Palpitations, Dyspnea on exertion, Orthopnea, PND, Shortness of breath Respiratory: Denies: Cough, Hemoptysis, Shortness of Breath, Wheezing Gastrointestinal:: Denies: Abdominal pain, Nausea, Vomiting, Diarrhea, Constipation, Hematochezia Genitourinary: Denies: Dysuria, Hematuria, 15, Flank pain Musculoskeletal:: Reports: Arthritis - Chronic degenerative joint disease unchanged, Arthralgia. Denies: Back pain, Myalgia Skin: Denies: Rash, Skin Changes, Wounds Neurological:: Denies: Headache, Dizziness, Visual changes, Tinnitus, Hearing loss Psychiatric: Denies: Anxiety, Depression, Homicidal Ideations, Suicidal Ideations Vital Signs Height 5 ft 4 in Weight: 95.073 kg Weight in Pounds 209.6 lbs BMI 37.2 Pulse Ox 96 - Physical Exam General: Alert, Oriented x3, No apparent distress, - - Overweight, ECOG 1 HEENT: Atraumatic, PERRLA, EOMI, Normocephalic Oropharynx:: Dry mucosa Neck:: Supple, Trachea midline. Negative for: JVD, bilateral Cardiac:: Regular rate, Regular rhythm, Normal S1, Normal S2. Negative for: Murmur Lungs: Clear to auscultation, Excusion symmetrical. Negative for: Rhonchi, Wheezes Abdomen:: Soft, Non-tender, Non-distended. 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 Patient is status post partial mastectomy with sentinel lymph node biopsy. Oncotype DX score 17 (low risk group) Started adjuvant hormonal therapy with Arimidex October 2017. Flashes is the main side effect reported. #2- Bone density normal in March 2018. Continue with vitamin D and calcium. #3 Genetic counseling at [facility] or [facility] children offered, patient to consider. Comorbid conditions: Overweight, psoriasis, degenerative joint disease, hypertension, dyslipidemia. Patient was seen impression and recommendations were discussed. Medications: Prescriptions This Visit Medication Instructions Recorded Anastrozole [Arimidex] 1 mg PO DAILY 90 Days #90 tab 10/22/17 Primary Care Provider: PASTORA BullockC Referring Provider: Abdulaziz Guaman 04/18/18 1039 <Electronically signed by Isabel Diggs MD> Date sIabel Diggs MD Cosigner Signature: Date (if applicable) CC: BD BONE DENSITY DEXA Observed: 04/12/2018 Status: F Source: [employer] AXIAL [place]LE[place] 11:30 AM [facility] REPOSITORY ORIGINAL BONE DENSITOMETRY CLINICAL STATEMENT: LEFT BREAST CA COMPARISON: 04/30/15 T Score Left Femoral Neck: -0.0 BMD (g/cm2) Left Femoral Neck: 0.848 T Score Left Hip: 0.9 BMD (g/cm2) Left Hip: 1.046 T Score Lumbar Spine L1-L4: 0.1 BMD (g/cm2) Lumbar Spine L1-L4: 1.057 T Score Right Femoral Neck: BMD (g/cm2) Right Femoral Neck: T Score Right Hip: BMD (g/cm2) Right Hip: T Score 33% Left Radius: BMD (g/cm2) Left 33% Radius: T Score 33% Right Radius: BMD (g/cm2) Right 33% Radius: COMMENTS: CONCLUSION: The patient is considered to have normal bone density based on the left femoral neck which has a T score of 0.9. total left hip which has a T score of 0.1. lumbar spine which has a T score of -0.0. BMD Change from previous Hip: % BMD Change from previous Lumbar Spine: % *By the World Health Organization standards: Osteopenia is present when the bone mineral density is greater than 1 standard deviation (SD) but less than 2.5 SDs below a young normal sex matched populati on. Osteoporosis is present when the bone mineral density is equal to or greater than 2.5 SDs below a young normal sex matched population. Interpreted By: Chhaya Yeung MD Preliminary Report By: Chhaya Yeung MD Electronically Signed By: Chhaya Yeung MD Dictated Date: 04/12/2018 12:06:28 PM Prelim Date: 04/12/2018 12:06:28 PM Sign Date: 04/12/2018 12:08:27 PM CBC W/DIFF, AUTOMATED Collected: 04/01/2018 Status: F Source: [place] 12:27 PM [facility] REPOSITORY TYPE CODE TESTS RESULT OUT OF RANGE REFERENCE UNITS LAB L100.1000 4.4-11.0 K/mm3 Normal WBC 8.5 LAB L100.1200 4.2-5.4 M/mm3 Low RBC 3.99 LAB L100.1300 12.0-15.0 g/dl Normal HGB 12.1 LAB L100.1400 37-47 % Normal HCT 37.7 LAB L100.1500 81-99 fL Normal MCV 94.5 LAB L100.1600 27.0-32.0 pg Normal MCH 30.3 LAB L100.1700 32-36 g/gl Normal MCHC 32.1 LAB L100.1810 11.6-14.6 % Normal RDW CV 14.6 LAB L100.1820 35.1-43.9 fl High RDW SD 48.0 LAB L100.1900 150-450 K/mm3 Normal PLT 356 LAB L100.2000 6.2-12.0 fl Normal MPV 9.8 LAB L100.2100 47-70 % Normal NEUT% 59.9 LAB L100.2200 19-41 % Normal LY% 30.2 LAB L100.2300 0-10 % Normal MONO% 6.9 LAB L100.2400 0-5 % Normal EO% 2.1 LAB L100.2500 0-1 % Normal BASO% 0.4 LAB L100.2550 0.0-0.9 % Normal IM GRAN % 0.500 Result Comment: IG% - Immature Granulocytes (promyelocytes, myelocytes and metamyelocytes) > 1% indicates that a LEFT SHIFT is Present. LAB L100.2620 2.0-7.7 X10 3/uL Normal Absolute Neut 5.1 LAB L100.2720 0.83-4.51 X10 3/ul Normal Absolute Lymph 2.58 Performed By: #### L100.0100 #### [facility] [address] [place], [place], [id number] COMPREHENSIVE METABOLIC Collected: 04/01/2018 Status: F Source: [facility] 12:27 PM [facility] REPOSITORY TYPE CODE TESTS RESULT OUT OF RANGE REFERENCE UNITS LAB L501.0100 74-106 mg/dL Normal GLU 99 Result Comment: Please note revised GLUCOSE reference range effective 2017. LAB L501.1000 7-18 mg/dL Normal BUN 17 LAB L501.1100 0.55-1.02 mg/dL Normal CREAT,SERUM 0.77 Result Comment: The validity of the calculated GFR AND GFRAA in patients over 70 years has not been determined. Clinical correlation is essential. LAB L501.1110 >60 mL/min Normal EST GFR 79 Result Comment: Non- GFR Calc LAB L501.1115 >60 mL/min Normal EST GFR - AA 96 Result Comment: GFR Calc LAB L501.1300 10-20 RATIO High BUN/CRE 22.2 LAB L501.1500 6.4-8.2 g/dL T Normal PROT 7.5 LAB L501.1800 3.2-5.0 g/dL Normal ALB 3.7 LAB L501.1950 2.2-4.2 g/dL Normal GLOB 3.8 LAB L501.2000 0.9-2.4 RATIO Normal A/G 1.0 LAB L501.2200 8.5-10.1 mg/dL CA Normal 8.9 LAB L501.4100 15-37 U/L Low AST 12 LAB L501.4305 45-117 U/L Normal ALK P 83 LAB L501.4405 13-56 U/L Normal ALT 22 LAB L501.4600 0.20-1.00 mg/dL T Normal BILI 0.30 LAB L501.5300 136-145 mmol/L NA Normal 138 LAB L501.5600 3.5-5.1 mmol/L K Normal 4.1 LAB L501.5900 98-107 mmol/L CL Normal 104 LAB L501.6100 21.0-32.0 mmol/L Normal CO2 29.0 LAB L501.6200 5-15 Normal GAP 5 Performed By: #### L500.4050 #### [facility] [address] [place], [address] ONCOLOGY VISIT REPORT Observed: 01/17/2018 Status: F Source: [place] 1:03 PM [facility] REPOSITORY [place] [facility] [address] [place] [address] OFFICE VISIT Date of Service: 01/17/18 1150 MR#: [id number] Acct: [id number] Name: LILIANA MARTÍNEZ C[place] Rep #: [id number] : 1950 From: Isabel Diggs MD Age/Sex: 67/F Location: OMD Status: Signed - Problem List (1) Primary cancer of left female breast Status: Chronic - Date of Service Date of Service:: 01/17/18 - Chief Complaint Breast cancer - History of Present Illness Patient is a 67-year-old female who presented after she felt a lump in her left breast confirm on a diagnostic mammogram. August 21, 2017 she underwent an ultrasound- guided needle core biopsy from the left breast revealing an invasive ductal carcinoma with mucinous features. Tumor was ER positive (over 95%), ID positive (over 95%) and HER-2/elsie negative. On September 06 she underwent a left breast partial mastectomy with sentinel lymph node biopsy revealing a single focus of invasive ductal cancer measuring 8 mm in maximum diameter overall grade 1 (total score of 4) negative margin 1 cm, lymphovascular invasion not identified, and no metastatic cancer found in 1 sentinel lymph node. Oncotype DX score 17 (low risk group) Treatment: September 06, 2017 left breast partial mastectomy with sentinel lymph node biopsy. Adjuvant Arimidex: October 2017 - Past Medical/Social History Past Medical History Cancer: Breast cancer Social History Social History: No changes Smoking Status Never smoker Review of Systems Constitutional:: Reports: - - Hot flashes, almost daily. Denies: Fever, Sweats, Weight loss, Appetite change, Chills Cardiovascular:: Denies: Chest pain, Palpitations, Dyspnea on exertion, Orthopnea, PND, Shortness of breath Respiratory: Denies: Cough, Hemoptysis, Shortness of Breath, Wheezing Gastrointestinal:: Denies: Abdominal pain, Nausea, Vomiting, Diarrhea, Constipation, Hematochezia Genitourinary: Denies: Dysuria, Hematuria, 15, Flank pain Musculoskeletal:: Reports: Arthritis - Rheumatoid, has good days and bad days, Arthralgia. Denies: Back pain, Myalgia Skin: Denies: Rash, Skin Changes, Wounds Neurological:: Denies: Headache, Dizziness, Visual changes, Tinnitus, Hearing loss Psychiatric: Denies: Anxiety, Depression, Homicidal Ideations, Suicidal Ideations Vital Signs Height 5 ft 4 in Weight: 95.073 kg Weight in Pounds 209.6 lbs BMI 37.2 Pulse Ox 96 - Physical Exam General: Alert, Oriented x3, No apparent distress, - - Obese ECOG 1 HEENT: Atraumatic, PERRLA, EOMI, Normocephalic Oropharynx:: Dry mucosa Neck:: Supple, Trachea midline. Negative for: JVD, bilateral Cardiac:: Regular rate, Regular rhythm, Normal S1, Normal S2. Negative for: Murmur Lungs: Clear to auscultation, Excusion symmetrical. Negative for: Rhonchi, Wheezes Abdomen:: Soft, Non-tender, Non-distended. Negative for: Hepatosplenomegaly Extremities:: Negative for: Cyanosis, Edema Neurological: Neuro grossly intact Skin:: Negative for: Lesions, Rash, Petechiae, Ecchymosis Psychiatric:: Appropriate affect, Euthymic Lymphatics:: Negative for: Cervical lymphadenopathy, Supraclavicular lymphadenopathy, Axillary lymphadenopathy Diagnostic Data: Bone density, [facility], April 2015 normal Assessment and Plan #1- 67-year-old female with stage IA (T1b, N0, M0) invasive ductal cancer of the left breast, ER positive, ID positive, HER-2 negative, G1. Patient is status post partial mastectomy with sentinel lymph node biopsy. Oncotype DX score 17 (low risk group) Started adjuvant hormonal therapy with Arimidex October 2017. Flashes as the main side effect reported. #2- Bone density was normal in April 2015, to update. Continue with vitamin D and calcium. If there is progressive bone loss would advise bone supporting therapy with Prolia or zometa. #3 [facility], patient to consider. Comorbid conditions: Overweight, psoriasis, degenerative joint disease, hypertension, dyslipidemia. Patient was seen was her , impression and recommendations were discussed. Medications: Prescriptions This Visit Medication Instructions Recorded Anastrozole [Arimidex] 1 mg PO DAILY 90 Days #90 tab 10/22/17 Primary Care Provider: AUGUSTA Bullock Referring Provider: Abdulaziz Guaman 01/17/18 1303 <Electronically signed by Isabel Diggs MD> Date Isabel Diggs MD Cosigner Signature: Date (if applicable) CC: PLC CONTROLS ENGINEER-C Marisel Loyola CBC W/DIFF, AUTOMATED Collected: 01/01/2018 Status: F Source: [place] 10:28 AM [facility] REPOSITORY Order Comment: Reason for Laboratory Test . TYPE CODE TESTS RESULT OUT OF RANGE REFERENCE UNITS LAB L100.1000 4.4-11.0 K/mm3 Normal WBC 8.6 LAB L100.1200 4.2-5.4 M/mm3 Low RBC 4.17 LAB L100.1300 12.0-15.0 g/dl Normal HGB 12.4 LAB L100.1400 37-47 % Normal HCT 38.4 LAB L100.1500 81-99 fL Normal MCV 92.1 LAB L100.1600 27.0-32.0 pg Normal MCH 29.7 LAB L100.1700 32-36 g/gl Normal MCHC 32.3 LAB L100.1810 11.6-14.6 % High RDW CV 14.9 LAB L100.1820 35.1-43.9 fl High RDW SD 49.3 LAB L100.1900 150-450 K/mm3 Normal PLT 313 LAB L100.2000 6.2-12.0 fl Normal MPV 9.2 LAB L100.2100 47-70 % Normal NEUT% 61.8 LAB L100.2200 19-41 % Normal LY% 29.9 LAB L100.2300 0-10 % Normal MONO% 6.3 LAB L100.2400 0-5 % Normal EO% 1.7 LAB L100.2500 0-1 % Normal BASO% 0.2 LAB L100.2550 0.0-0.9 % Normal IM GRAN % 0.100 Result Comment: IG% - Immature Granulocytes (promyelocytes, myelocytes and metamyelocytes) > 1% indicates that a LEFT SHIFT is Present. LAB L100.2620 2.0-7.7 X10 3/uL Normal Absolute Neut 5.3 LAB L100.2720 0.83-4.51 X10 3/ul Normal Absolute Lymph 2.58 Performed By: #### L100.0100, L500.4050 #### [facility] [address] [place], [address] COMPREHENSIVE METABOLIC Collected: 01/01/2018 Status: F Source: [facility] 10:28 AM [facility] REPOSITORY Order Comment: Reason for Laboratory Test . TYPE CODE TESTS RESULT OUT OF RANGE REFERENCE UNITS LAB L501.0100 74-106 mg/dL Normal GLU 96 Result Comment: Please note revised GLUCOSE reference range effective 2017. LAB L501.1000 7-18 mg/dL Normal BUN 13 LAB L501.1100 0.55-1.02 mg/dL Normal CREAT,SERUM 0.80 Result Comment: The validity of the calculated GFR AND GFRAA in patients over 70 years has not been determined. Clinical correlation is essential. LAB L501.1110 >60 mL/min Normal EST GFR 75 Result Comment: Non- GFR Calc LAB L501.1115 >60 mL/min Normal EST GFR - AA 91 Result Comment: GFR Calc LAB L501.1255 ml/min Normal Estimated CRCL 57.31 LAB L501.1300 10-20 RATIO Normal BUN/CRE 16.2 LAB L501.1500 6.4-8. g/dL Normal 2 T PROT 7.6 LAB L501.1800 3.2-5. g/dL Normal 0 ALB 3.6 LAB L501.1950 2.2-4. g/dL Normal 2 GLOB 4.0 LAB L501.2000 0.9-2. RATIO Normal 4 A/G 0.9 LAB L501.2200 8.5-10 mg/dL Normal .1 CA 8.9 LAB L501.4100 15-37 U/L Normal AST 19 LAB L501.4305 45-117 U/L Normal ALK P 88 LAB L501.4405 13-56 U/L Normal ALT 24 LAB L501.4600 0.20-1 mg/dL Normal .00 T BILI 0.40 LAB L501.5300 136-14 mmol/L Normal 5 NA 139 LAB L501.5600 3.5-5. mmol/L Normal 1 K 4.1 LAB L501.5900 98-107 mmol/L Normal CL 104 LAB L501.6100 21.0-3 mmol/L Normal 2.0 CO2 28.0 LAB L501.6200 5-15 Normal GAP 7 Performed By: #### L100.0100, L500.4050 #### [facility] [address] [place], [place], [address] SURGERY VISIT REPORT Observed: 11/15/2017 Status: F Source: [place] 1:20 PM [facility] REPOSITORY [facility] 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 Is patient in pain?: No Allergies methylene blue Allergy (Intermediate, Verified 11/15/17 13:00) Other Penicillins Allergy (Intermediate, Verified 11/15/17 13:00) itching Medications calcium carbonate 600 mg calcium (1,500 mg) tablet 600 mg PO QDAY tab 08/21/17 [History Confirmed 11/15/17] cholecalciferol (vitamin D3) 2,000 unit capsule 2,000 unit PO QDAY 08/21/17 [History Confirmed 11/15/17] duloxetine 30 mg capsule,delayed release 30 mg PO QDAY 08/21/17 [History Confirmed 11/15/17] etodolac 500 mg tablet 500 mg PO PRN PRN tab 08/21/17 [History Confirmed 11/15/17] fluticasone 50 mcg/actuation nasal spray,suspension 1 spray INTRANASAL PRN PRN 08/21/17 [History Confirmed 11/15/17] folic acid 1 mg tablet 1 mg PO QDAY 08/21/17 [History Confirmed 11/15/17] lisinopril 40 mg tablet 40 mg PO QDAY 08/21/17 [History Confirmed 11/15/17] lovastatin 40 mg tablet 40 mg PO QDAY 08/21/17 [History Confirmed 11/15/17] methotrexate sodium 2.5 mg tablet 8 mg PO MO tab 08/21/17 [History Confirmed 11/15/17] multivitamin,ra-hybi-twprrxjr tablet 1 tab PO QDAY 08/21/17 [History Confirmed 11/15/17] olopatadine 0.1 % eye drops 1 drp OPHTHALMIC QHS 08/21/17 [History Confirmed 11/15/17] turmeric root extract 500 mg capsule 500 mg PO BID 08/21/17 [History Confirmed 11/15/17] vitamin E (dl, acetate) 400 unit capsule 400 unit PO QDAY 08/21/17 [History Confirmed 11/15/17] Cetirizine HCl [Zyrtec] 10 mg PO DAILY 08/30/17 [History Confirmed 11/15/17] triamcinolone acetonide 0.5 % topical cream 1 applic TOPICAL BID #15 g 09/28/17 [Rx Confirmed 11/15/17] Anastrozole [Arimidex] 1 mg PO DAILY 90 Days #90 tab 10/22/17 [Rx Confirmed 11/15/17] PFSH Medical History Breast cancer (Acute) DJD (degenerative joint disease) (Acute) Heart murmur (Acute) Hyperlipidemia (Acute) Mitral regurgitation (Acute) Obesity (Acute) Psoriasis (Acute) Tricuspid regurgitation (Acute) HTN (hypertension) (Chronic) Surgical History History of kidney removal (Acute) History of lumpectomy (Acute) History of lumpectomy of left breast (Acute 09/06/17) S/P hysterectomy with oophorectomy (Acute) Status post breast reduction (Acute) Family History Mother Diabetes CAD (coronary artery disease) CHF (congestive heart failure) Hypertension Sister Throat cancer Social History Smoking Status: Never smoker HPI HPI HPI: LILIANA MARTÍNEZ, is a 67 F I am following in conjunction with Dr. Guaman. Patient had a left breast lumpectomy with axillary lymph node biopsy on 09/06/17. Patient tolerated the procedure well. Patient had a follow-up with Dr. Guaman on 09/26. Patient noted at that time, she had a painful lump with redness/blue tinged discoloration throughout the area of palpation. This area was consistent with an allergic reaction to the methylene blue. Pharmacy was contacted and advised topical corticosteroid. An antibiotic was also prescribed. Patient returns for a follow-up. She notes the lump is slowly decreasing in size. She denies discomfort. She notes still a slight blue/purplish tinge to the area. She was evaluated by the radiation oncologist and declined radiation. She is only on hormone suppression therapy. Exam Chest Other: Left breast- slight purplish/blue discoloration. Palpable lump approximately 3 cm in diameter. Non-tender Assessment AND Plan Problems 1. Primary cancer of left female breast C50.912 Plan - Follow-up with Dr. Guaman following yearly mammograms or sooner as needed Coding Level of Care Code Global Post Op Diagnoses Primary cancer of left female breast C50.912 11/15/17 1320 <Electronically signed by Cynthia Garcia PA-C> Date Cynthia Garcia PA-C Cosigner Signature: Date (if applicable) CC: AUGUSTA Loyola CONSULTATION Observed: 10/23/2017 Status: F Source: [place] 11:51 AM [facility] REPOSITORY [facility] Medical Records Department [address] [place] [address] Consultation 10/23/17 1131 MR#: [id number] Acct: [id number] Name: LILIANA MARTÍNEZ Rep #: [id number] : 1950 67 From: [facility] Nealblanche ORTEGA PCP: AUGUSTA Bullock Status: REG RCR Y Location: [facility] Date of Service: 10/23/17 Referring Provider: Dr. Diggs Diagnosis: Liliana Martínez is a 67-year-old postmenopausal female diagnosed with pathologic stage I (pT1b pN0 (sn) M0) grade 1 invasive mucinous carcinoma (ER >95%, ID >95%, Her2 0 on IHC) of the left breast s/p lumpectomy and SLNBx (09/06/17). Oncotype score returned at 17 (low risk) and she is planning to receive adjuvant Arimidex alone. History of Present Illness: 08/17/17: Patient underwent bilateral digital diagnostic mammogram after palpating a lump in the left breast. There was noted to be a 9 mm irregular density in the left breast at the 7:00 anterior depth. On ultrasound there is a 1 cm lobulated lesion in the left breast at the 6:00 anterior depth, this lesion is hypoechoic and correlates to the palpated lesion as well as the mammographic findings. There are no masses or enlarged lymph nodes seen in the axilla. BI-RADS Category 4. 08/21/17: Ultrasound-guided biopsy left breast mass was performed which demonstrated grade 1 invasive ductal carcinoma with mucinous features (ER >95%, ID >95%, Her2 0 on IHC) 09/06/2017: Patient underwent left breast lumpectomy and sentinel lymph node biopsy and pathology demonstrated a 0.8 x 0.7 x 0.6 cm grade 1 invasive mucinous carcinoma (ER >95%, ID >95%, Her2 0 on IHC), LVSI not identified, margin negative (closest is 1 cm), 0/1 sentinel LNs contained metastatic carcinoma, pT1b pN0 (sn). Oncotype score returned as 17 (low risk) October 2017: planning to initiate Arimidex Radiation Treatment History: 1) None No pacemaker or diagnosis of collagen vascular disease Interval History: Patient presents for initial consultation. She completed surgery about 5-6 weeks ago and reports that she has healed fairly well. However she does note that superior to the nipple areolar complex she developed a firm thickening with some very mild associated tenderness fairly soon after surgery. She denies having skin redness but was treated with antibiotics in the thickening has slowly receded but is still easily palpable. She denies having any trouble with healing from the lumpectomy or healing in her axilla and denies any wound dehiscence or drainage. She denies having any other areas of swelling or abnormality. She denies unexpected weight loss or fatigue. She recently has retired from her job. She reports staying fairly active at home and can complete all activities of daily living with very little difficulty. She does have bilateral joint tenderness especially in her knees which does limit her pace of completing activities. She denies any shortness of breath, chest pain, cough, bone pain, headache, vision changes, or other problems at this time. Family History (Last Updated 10/23/17 @ 10:01 by Sierra Alva RN) Mother Diabetes CAD (coronary artery disease) CHF (congestive heart failure) Hypertension Sister Throat cancer Medical History (Last Reviewed 10/23/17 @ 10:00 by Sierra Alva RN) DJD (degenerative joint disease) (Acute) Heart murmur (Acute) Hyperlipidemia (Acute) Mitral regurgitation (Acute) Obesity (Acute) Psoriasis (Acute) Tricuspid regurgitation (Acute) HTN (hypertension) (Chronic) Surgical History (Last Reviewed 10/23/17 @ 10:00 by Sierra Alva RN) History of kidney removal (Acute) History of lumpectomy (Acute) 09-06-17 S/P hysterectomy with oophorectomy (Acute) Status post breast reduction (Acute) Social History - Tobacco Smoking Status Never smoker Passive smoke exposure: No Social History - Substance Drug use: No Caffeine use [drinks/day]: 0 Alcohol use: Yes Type of alcohol: OCCASSIONAL Social History - Living Arrangements Patients Living Arrangements With Significant Other Gynecological History Age at first period: 15 Hx Age of Menopause 32 (hysterectomy) Do you have 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 Date of last PAP smear: 04/16/97 Hx Control Yes: VERY BRIEFLY Hx Hormone Therapy No Obstetrical History Number of pregnancies: 5 Number of children: 3 Have you ever breastfed in the Yes past? Breast Health Monthly breast self-exams Yes performed? Do you have regular clinical Yes breast examinations? Date of last mammogram: 08/14/17 Have you ever had an abnormal Yes mammogram? Home Medications Medication Instructions Recorded calcium carbonate 600 mg calcium 600 mg PO QDAY tab 08/21/17 Allergy/AdvReac Type Severity Reaction Status Date / Time methylene blue Allergy Intermediate Other Verified 10/23/17 09:56 Penicillins Allergy Intermediate itching Verified 10/23/17 09:56 Health Maintenance Do you regularly see your No primary care physician? Have you ever had a Yes colonoscopy? Date of last colonoscopy: 04/17/16 I have reviewed the medical, surgical, and other pertinent history in details and have updated medication and allergy information in the electronic medical record. Review of Systems: A 12-point review of systems was completed and was negative except for what is noted in the HPI/Interval History and by the nurse. Height/Weight/BMI: Height: 5 ft 4 in Weight: 98.339 kg BMI: 37.2 Vital Signs Temperature 98.6 F 10/23/17 09:58 Temperature Source Oral 10/23/17 09:58 Pulse Rate 78 10/23/17 09:58 Physical Exam: ECO KARNOFSKY SCORE: 90% CONSTITUTIONAL: Well-developed, obese, and in no apparent distress. HEENT: Mucous membranes moist. No evidence of thrush or lesions within the visualized oropharynx or oral cavity. No trismus. Pupils are equal, round, and reactive to light and accommodation. Extraocular movements are intact. Sclerae are anicteric. NECK: No cervical or supraclavicular adenopathy noted. CARDIAC: Regular rate and rhythm. Normal S1, S2. No murmurs, rubs, or gallops. PULMONARY/CHEST: Lungs are clear to auscultation and percussion bilaterally. No wheezes, rhonchi, or crackles noted. No increased work of breathing. BREAST: The bilateral breasts were examined in the seated and supine positions. The breasts appear mostly symmetrical. There is an approximately 4 cm well-healed lumpectomy vertical incision in the inferior outer quadrant of the left breast near the nipple areolar complex. Just superior to the nipple areolar complex there is a 5 cm x 3 cm palpable area of skin thickening without erythema, there is mild trabecular marking signifying edema. This area is not painful to touch and there are no distinct masses noted. There are no lesions noted in either breast or axilla. ABDOMINAL: Abdomen soft, non-tender, non-distended. No hepatomegaly. Normoactive bowel sounds in all four quadrants. No guarding, rebound. BACK: Straight and aligned. No CVA tenderness. Axial skeleton non-tender to percussion. EXTREMITIES: Full range of motion in all four extremities, with normal strength equally and symmetrically. No evidence of edema. NEUROLOGICAL EXAM: Alert and oriented x 3. Cranial nerves II through XII are grossly intact. No focal neurological deficit. Speech is fluent. There is no upper or lower extremity sensory deficit or motor deficit. Muscle strength is 5/5 in all muscle groups. Gait and posture are steady. Imaging: As per HPI Laboratory Data: Laboratory Tests WBC 11.3 H Hgb 11.7 L Plt Count 353 BUN 22 H Creatinine 0.93 Assessment: Liliana Martínez is a 67-year-old postmenopausal female diagnosed with pathologic stage I (pT1b pN0 (sn) M0) grade 1 invasive mucinous carcinoma (ER >95%, ID >95%, Her2 0 on IHC) of the left breast s/p lumpectomy and SLNBx (09/06/17). Oncotype score returned at 17 (low risk) and she is planning to receive adjuvant Arimidex alone. Plan: I had a detailed discussion with the patient regarding diagnosis and treatment options for stage I breast cancer. I discussed with her multiple randomized trials that demonstrate that the addition of radiation therapy after lumpectomy can reduce the risk of local recurrence within the breast by 60% and can provide improvement in overall survival. I explained to her that in general, based on meta-analysis data, the general 5-yr risk of a local recurrence is on the order of 26% and that radiation reduces this risk to around 7%. I also explained to her that the magnitude of this risk reduction translates into an overall survival benefit at 15 yrs. I discussed that while these benefits were shown in higher risk patient populations with outdated chemotherapy, that the relative benefit from radiation therapy in terms of improvement of disease control same even if the effect on absolute benefit is lower. I discussed with her that there have been attempts to limit radiation in more elderly low risk patients. The CALGB 9343 study randomized women 70 yrs or older with clinical T1 tumors and clinically negative axilla to lumpectomy alone versus lumpectomy+radiation (the majority of women received anti-endocrine therapy in that group). Risks of local recurrence at 10 yrs were approximately 2% in the radiation group and 8% in the lumpectomy alone group. More recently, the (PRIME-2) examined the exact same question in women that were 65 years or older with pathologic stage I-II (up to 3 cm), ER+, pathologically node negative (on SLNBx) invasive breast cancers. This study has shorter follow-up (5 yrs), but shows that the risk of local recurrence is 1.3% with radiation and 4.1% with lumpectomy alone this data is very similar to the 5 yr data from the CALGB 9343 study. In both studies, there was no difference in overall survival between the two groups. Therefore, while radiation significantly reduces the risk of a local recurrence, the absolute risk of recurrence in this population of women (older women, smaller tumors, ER+) is much lower than the general risk for younger women or those with higher risk features, and there is no survival advantage. I believe that because she is a 67-year-old female with very low risk disease that hypofractionated radiation therapy with hormone therapy or hormone therapy alone would both be reasonable options depending on the patient's comfort with excepting a higher risk of recurrence within the ipsilateral breast. I also explained that some patients may find that they do not tolerate hormone therapy well several months after starting it, for radiation therapy we will want to initiate treatment no later than 12 weeks postop. It is unclear to me what the skin thickening involving the upper left breast is from but does not appear to be from infection, it may be from some sort of an injection reaction from the sentinel lymph node biopsy, I plan on discussing this with her surgeon. I am unaware of how radiation therapy would affect this area given that I am not familiar with the etiology. She is taking methotrexate currently at a very low dose which I do think would be safe to deliver with radiation therapy. I explained what a course of breast radiation entails. Radiation proceeds over several week times and is delivered Sunday through Sunday, 5 days per week. The process for planning a radiation course including the need for CT simulation, placement of tattoos, generation of a virtual 3D conformal radiation therapy plan from the acquired CT images, and the need for verification of the computer generated plan prior to beginning treatment was explained. I discussed the rationale, risks and benefits of radiation therapy with the patient. The acute risks include, but are not limited to: Fatigue, skin irritation including desquamation particularly along skin folds, breast pain or discomfort, and breast swelling. The long-term risks include, but are not limited to: residual hyperpigmentation or hypopigmentation (10%); skin telangectasias; radiation pneumonitis (<0.5%); lung scarring/fibrosis; breast fibrosis and change in breast contour with a 15-20% risk of poor cosmetic outcome; radiation-induced heart disease, particularly for left-sided breast cancers; shoulder stiffness or reduced ROM; lymphedema (1-2% increased risk above surgical risk); rib fracture (<1%); remote-risk of radiation-induced malignancy. To minimize cardiac dose and potentially future cardiac toxicity, we will maximally reduce heart dose and can use DIBH or prone positioning to help accomplish this. At the end of the discussion, the patient had many questions all of which were thoroughly answered. Patient is planning to discuss her options with her at home prior to making her decision and is planning to contact us in the near future after deciding if she would prefer to receive adjuvant radiation therapy or not. I explained that with or without radiation therapy I would strongly recommend that she pursue hormone therapy and continue vigilant screening with mammography in the future. Thank you for allowing me to participate in the management and care of your patient. If I may answer any questions in the interim, please do not hesitate to contact me at any time. Kaiser Lau DO, Cheese Blender, Department of Radiation Oncology [facility] 10/23/17 0476 <Electronically signed by Kaiser Lau DO> Date Kaiser Leigh Signature (if applicable): Date CC: AUGUSTA Loyola; Isabel Diggs MD; Abdulaziz Guaman MD Signed ONCOLOGY VISIT REPORT Observed: 10/22/2017 Status: F Source: [facility] 11:52 AM [facility] REPOSITORY [facility] [address] [place] [address] OFFICE VISIT Date of Service: 10/22/17 1030 MR#: [id number] Acct: [id number] Name: LILIANA MARTÍNEZ Rep #: [id number] : 1950 From: Sherri DERAS Age/Sex: 67/F Location: [facility] Status: Signed Subjective - Date of Service Date of Service:: 10/22/17 - Chief Complaint Endocrine therapy education - History of Present Illness Patient is a 67-year-old female with a past medical history positive for left sided nephrectomy, arthritis and hypertension who presented after she felt a lump in her left breast confirm on a diagnostic mammogram. August 21, 2017 she underwent an ultrasound-guided needle core biopsy from the left breast revealing an invasive ductal carcinoma with mucinous features. Tumor was ER positive (over 95%), ID positive (over 95%) and HER-2/elsie negative. On September 06 she underwent a left breast partial mastectomy with sentinel lymph node biopsy revealing a single focus of invasive ductal cancer measuring 8 mm in maximum diameter overall grade 1 (total score of 4) negative margin 1 cm, lymphovascular invasion not identified, and no metastatic cancer found in 1 sentinel lymph node. Oncotype DX score 17 (low risk group) Treatment: September 06, 2017 left breast partial mastectomy with sentinel lymph node biopsy. Adjuvant Arimidex: October 2017 - Interval History The patient is presenting to clinic for endocrine therapy education. Reports she underwent routine dexa scan she believes in 2017 at [facility]. Takes calcium and vitamin D supplements, does not dedicate time specifically for exercise but describes a relatively active lifestyle with a significant amount of weight bearing exercise while at work. - Past Medical/Social History Past Medical History Cancer: Breast cancer Social History Social History: No changes Smoking Status Never smoker Review of Systems Constitutional:: Denies: Fever, Sweats, Weight loss, Appetite change, Chills Cardiovascular:: Denies: Chest pain, Palpitations, Dyspnea on exertion, Orthopnea, PND, Shortness of breath Respiratory: Denies: Cough, Hemoptysis, Shortness of Breath, Wheezing Gastrointestinal:: Denies: Abdominal pain, Nausea, Vomiting, Diarrhea, Constipation, Hematochezia Genitourinary: Denies: Dysuria, Hematuria, Abnormal vaginal bleeding - Hysterectomy at age 30, Flank pain Musculoskeletal:: Reports: Arthritis, Joint stiffness, Arthralgia. Denies: Myalgia Skin: Denies: Rash, Skin Changes, Wounds Neurological:: Reports: Numbness, Tingling. Denies: Headache, Dizziness, Visual changes, Tinnitus, Hearing loss Psychiatric: Denies: Anxiety, Depression, Homicidal Ideations, Suicidal Ideations Vital Signs Height 5 ft 4 in Weight: 217 lb Weight in Pounds 217.0 lbs Pulse Ox 97 - Physical Exam General: Alert, Oriented x3, No apparent distress HEENT: Atraumatic, Normocephalic Psychiatric:: Appropriate affect, Euthymic Breast:: - - Deferred today Assessment and Plan 67-year-old female with stage IA (T1b, N0, M0) invasive ductal cancer of the left breast, ER positive, ID positive, HER-2 negative, G1. Patient is status post partial mastectomy with sentinel lymph node biopsy. Oncotype DX score 17 (low risk group) 1. Stage IA invasive ductal ca of left breast- It has been proposed she begin hormonal therapy with AI. The patient has been thoroughly educated to risks/benefits associated with anastrozole. Specifically, she has been educated to potential side effects, recommendations for symptom management, and circumstances in which she should contact provider prior to planned follow up, such as myalgias, hot flashes causing interference with ADLs. She has been provided written educational information regarding aromatase inhibitor therapy and lists of estrogenic herbs/supplements to avoid. I reviewed recommendations for calcium and vitamin D supplementation and the importance of weight bearing activity. Greater than 50% of this 45 minute was spent in counseling. A significant amount of time was allotted for questions. All the patient's concerns were addressed to her satisfaction and she is agreeable to proceed. Rx for anastrozole provided to mail away pharmacy per pt request. Has consult with radiation oncology tomorrow. Patient still considering genetic counseling at [facility] or [facility] as previously offered. Awaiting bone density report from 2017 that was requested last week from [facility]. Patient will require survivorship visit subsequent to radiation if indicated/elected. Sherri Edwards, MSN, FOLDER INSPECTOR, AOCNP Primary Care Provider: PASTORA BullockC Referring Provider: Abdulaziz Guaman - Problem List (1) Primary cancer of left female breast Status: Acute (2) ER+ (estrogen receptor positive status) Status: Acute (3) Educational circumstance Status: Acute (4) Aromatase inhibitor use Status: Acute 10/22/17 1152 <Electronically signed by Sherri DERAS> Date Sherri DERAS Cosigner Signature: Date (if applicable) CC: ONCOLOGY VISIT REPORT Observed: 10/18/2017 Status: F Source: [place] 10:58 AM [facility] REPOSITORY [facility] [address] [place] [address] OFFICE VISIT Date of Service: 10/18/17 1031 MR#: [id number] Acct: [id number] Name: LILIANA MARTÍNEZ Cedrick Rep #: [id number] : 1950 From: Isabel Diggs MD Age/Sex: 67/F Location: [facility] Status: Signed - Problem List (1) Primary cancer of left female breast Status: Acute - Date of Service Date of Service:: 10/18/17 - Chief Complaint Breast cancer - History of Present Illness Patient is a 67-year-old female who presented after she felt a lump in her left breast confirm on a diagnostic mammogram. August 21, 2017 she underwent an ultrasound- guided needle core biopsy from the left breast revealing an invasive ductal carcinoma with mucinous features. Tumor was ER positive (over 95%), ID positive (over 95%) and HER-2/elsie negative. On September 06 she underwent a left breast partial mastectomy with sentinel lymph node biopsy revealing a single focus of invasive ductal cancer measuring 8 mm in maximum diameter overall grade 1 (total score of 4) negative margin 1 cm, lymphovascular invasion not identified, and no metastatic cancer found in 1 sentinel lymph node. Oncotype DX score 17 (low risk group) Treatment: September 06, 2017 left breast partial mastectomy with sentinel lymph node biopsy. Adjuvant Arimidex: October 2017 - Interval History No change from October 01, 2017 - Past Medical/Social History Past Medical History Cancer: Breast cancer Social History Social History: No changes Smoking Status Never smoker Review of Systems Comment: No change from October 01, 2017 Vital Signs Height 5 ft 4 in Weight: 97.522 kg Weight in Pounds 215.0 lbs - Physical Exam General: Alert, Oriented x3, No apparent distress, - - ECOG 0 Assessment and Plan 67-year-old female with stage IA (T1b, N0, M0) invasive ductal cancer of the left breast, ER positive, ID positive, HER-2 negative, G1. Patient is status post partial mastectomy with sentinel lymph node biopsy. Oncotype DX score 17 (low risk group) #1 I reviewed the most recent NCCN guidelines and patient is a candidate for adjuvant hormonal therapy . #2 she will also be referred for radiation oncology consultation to discuss pros and cons of adjuvant radiation therapy. #3 to schedule a formal teaching session about AI therapy was PLC CONTROLS ENGINEER. #4 Baseline bone density to schedule #5 Genetic counseling at [facility] or [facility] offered, patient to consider. Comorbid conditions: Overweight, psoriasis, degenerative joint disease, hypertension, dyslipidemia. Patient was seen was her , impression and recommendations were discussed. Primary Care Provider: Marisel Loyola, REINIER-C Referring Provider: Abdulaziz Guaman 10/18/17 1058 <Electronically signed by Isabel Diggs MD> Date Isabel Diggs MD Cosigner Signature: Date (if applicable) CC: AUGUSTA Loyola; Abdulaziz Guaman MD SURGERY VISIT REPORT Observed: 10/16/2017 Status: F Source: [place] 3:58 PM [facility] REPOSITORY [facility] [address] [place] [address] OFFICE VISIT Date of Service: 10/16/17 MR#: [id number] Acct: [id number] Name: LILIANA MARTÍNEZ Rep #: [id number] : 1950 Provider: Cynthia Garcia PA-C Age/Sex: 67/F Location: [facility] Status: Signed Intake Intake Visit Reasons: F/U Lumpectomy 09/06 Chief Complaint: Breast cancer Tilt Tray Driver Required: No Is patient in pain?: No Allergies methylene blue Allergy (Intermediate, Verified 10/16/17 13:01) Other Penicillins Allergy (Intermediate, Verified 10/16/17 13:01) itching Medications calcium carbonate 600 mg calcium (1,500 mg) tablet 600 mg PO QDAY tab 08/21/17 [History Confirmed 10/16/17] cholecalciferol (vitamin D3) 2,000 unit capsule 2,000 unit PO QDAY 08/21/17 [History Confirmed 10/16/17] duloxetine 30 mg capsule,delayed release 30 mg PO QDAY 08/21/17 [History Confirmed 10/16/17] etodolac 500 mg tablet 500 mg PO PRN PRN tab 08/21/17 [History Confirmed 10/16/17] fluticasone 50 mcg/actuation nasal spray,suspension 1 spray INTRANASAL PRN PRN 08/21/17 [History Confirmed 10/16/17] folic acid 1 mg tablet 1 mg PO QDAY 08/21/17 [History Confirmed 10/16/17] lisinopril 40 mg tablet 40 mg PO QDAY 08/21/17 [History Confirmed 10/16/17] lovastatin 40 mg tablet 40 mg PO QDAY 08/21/17 [History Confirmed 10/16/17] methotrexate sodium 2.5 mg tablet 8 mg PO MO tab 08/21/17 [History Confirmed 10/16/17] multivitamin,md-indr-hfcurrny tablet 1 tab PO QDAY 08/21/17 [History Confirmed 10/16/17] olopatadine 0.1 % eye drops 1 drp OPHTHALMIC QHS 08/21/17 [History Confirmed 10/16/17] turmeric root extract 500 mg capsule 500 mg PO BID 08/21/17 [History Confirmed 10/16/17] vitamin E (dl, acetate) 400 unit capsule 400 unit PO QDAY 08/21/17 [History Confirmed 10/16/17] Cetirizine HCl [Zyrtec] 10 mg PO DAILY 08/30/17 [History Confirmed 10/16/17] triamcinolone acetonide 0.5 % topical cream 1 applic TOPICAL BID #15 g 09/28/17 [Rx Confirmed 10/16/17] PFSH Medical History DJD (degenerative joint disease) (Acute) Heart murmur (Acute) Hyperlipidemia (Acute) Mitral regurgitation (Acute) Obesity (Acute) Psoriasis (Acute) Tricuspid regurgitation (Acute) HTN (hypertension) (Chronic) Surgical History History of kidney removal (Acute) History of lumpectomy (Acute) S/P hysterectomy with oophorectomy (Acute) Status post breast reduction (Acute) Family History Mother Diabetes CAD (coronary artery disease) Hypertension CHF (congestive heart failure) Social History Smoking Status: Never smoker HPI HPI HPI: LILIANA MARTÍNEZ, is a 67 F I am following in conjunction with Dr. Guaman. Patient had a left breast lumpectomy with axillary lymph node biopsy on 09/06/17. Patient tolerated the procedure well. Patient had a follow-up with Dr. Guaman on 09/26. Patient noted at that time, she had a painful lump with redness/blue tinged discoloration throughout the area of palpation. This area was consistent with an allergic reaction to the methylene blue. Pharmacy was contacted and advised topical corticosteroid. An antibiotic was also prescribed. Patient returns for the follow-up visit noting improvement with the discomfort. She notes the swollen lump has decreased in size. She notes the erythema and blue tinged discoloration is slowly fading. Patient returns for a follow-up. She denies pain/discomfort. She continues to note blue-tinged skin. She has a consult appointment with radiation oncology on . Exam Chest Other: Left breast- faint blue-tinged skin. Hard palpable lump approximately 7.0 cm in diameter. Nontender Assessment AND Plan Problems 1. Primary cancer of left female breast C50.912 Plan - May discontinue corticosteroid - Recommend using heat over top of the palpable lump - Follow-up in 1 month Coding Level of Care Code Global Post Op Diagnoses Primary cancer of left female breast C50.912 10/16/17 1558 <Electronically signed by Cynthia Garcia PA-C> Date Cynthia Garcia PA-C Cosigner Signature: Date (if applicable) CC: PLC CONTROLS ENGINEERSyedC Marisel Loyola; Kenyon Webb MD DOWNTIME REPORT Observed: 10/04/2017 Status: F Source: [place] 2:12 PM [facility] Medical Records Department [address] [place], [place] [address] [address] Downtime Report MR#: [id number] Acct: [id number] Name: LILIANA MARTÍNEZ Rep #: [id number] : 1950 67 From: Brayan Monet PCP: AUGUSTA Bullock Status: REG CLI This patient was seen during an EMR downtime September 17, 2017 - September 24, 2017. This patient may have a combination of paper and electronic documentation or all paper documentation. All documentation is viewable within the e-chart portion of [employer] for each patient visit. SURGERY VISIT REPORT Observed: 10/03/2017 Status: F Source: [place] 2:41 PM [facility] [address] [place] [address] OFFICE VISIT Date of Service: 10/03/17 MR#: [id number] Acct: [id number] Name: LILIANA MARTÍNEZ Rep #: [id number] : 1950 Provider: Cynthia Garcia PA-C Age/Sex: 67/F Location: [facility] Status: Signed Intake Intake Visit Reasons: F/U Lumpectomy 09/06 Chief Complaint: Breast cancer Tilt Tray Driver Required: No Is patient in pain?: No Allergies methylene blue Allergy (Intermediate, Verified 10/03/17 14:12) Other Penicillins Allergy (Intermediate, Verified 10/03/17 13:23) itching Medications calcium carbonate 600 mg calcium (1,500 mg) tablet 600 mg PO QDAY tab 08/21/17 [History Confirmed 10/03/17] cholecalciferol (vitamin D3) 2,000 unit capsule 2,000 unit PO QDAY 08/21/17 [History Confirmed 10/03/17] duloxetine 30 mg capsule,delayed release 30 mg PO QDAY 08/21/17 [History Confirmed 10/03/17] etodolac 500 mg tablet 500 mg PO PRN PRN tab 08/21/17 [History Confirmed 10/03/17] fluticasone 50 mcg/actuation nasal spray,suspension 1 spray INTRANASAL PRN PRN 08/21/17 [History Confirmed 10/03/17] folic acid 1 mg tablet 1 mg PO QDAY 08/21/17 [History Confirmed 10/03/17] lisinopril 40 mg tablet 40 mg PO QDAY 08/21/17 [History Confirmed 10/03/17] lovastatin 40 mg tablet 40 mg PO QDAY 08/21/17 [History Confirmed 10/03/17] methotrexate sodium 2.5 mg tablet 8 mg PO MO tab 08/21/17 [History Confirmed 10/03/17] multivitamin,bw-fmka-zmnddsli tablet 1 tab PO QDAY 08/21/17 [History Confirmed 10/03/17] olopatadine 0.1 % eye drops 1 drp OPHTHALMIC QHS 08/21/17 [History Confirmed 10/03/17] turmeric root extract 500 mg capsule 500 mg PO BID 08/21/17 [History Confirmed 10/03/17] vitamin E (dl, acetate) 400 unit capsule 400 unit PO QDAY 08/21/17 [History Confirmed 10/03/17] Cetirizine HCl [Zyrtec] 10 mg PO DAILY 08/30/17 [History Confirmed 10/03/17] triamcinolone acetonide 0.5 % topical cream 1 applic TOPICAL BID #15 g 09/28/17 [Rx Confirmed 10/03/17] PFS Medical History DJD (degenerative joint disease) (Acute) Heart murmur (Acute) Hyperlipidemia (Acute) Mitral regurgitation (Acute) Obesity (Acute) Psoriasis (Acute) Tricuspid regurgitation (Acute) HTN (hypertension) (Chronic) Surgical History History of kidney removal (Acute) History of lumpectomy (Acute) S/P hysterectomy with oophorectomy (Acute) Status post breast reduction (Acute) Family History Mother Diabetes CAD (coronary artery disease) Hypertension CHF (congestive heart failure) Social History Smoking Status: Never smoker HPI HPI HPI: LILIANA MARTÍNEZ, is a 67 F I am following in conjunction with Dr. Guaman. Patient had a left breast lumpectomy with axillary lymph node biopsy on 09/06/17. Patient tolerated the procedure well. Patient had a follow-up with Dr. Guaman on 09/26. Patient noted at that time, she had a painful lump with redness/blue tinged discoloration throughout the area of palpation. This area was consistent with an allergic reaction to the methylene blue. Pharmacy was contacted and advised topical corticosteroid. An antibiotic was also prescribed. Patient returns for the follow-up visit noting improvement with the discomfort. She notes the swollen lump has decreased in size. She notes the erythema and blue tinged discoloration is slowly fading. She was evaluated by oncology who is sending her pathology for onco-type DX. She is scheduled to see the radiation oncologist in 2 1/2 weeks. Exam Chest Other: Left breast- inferior 6 o'clock incision is c/d/i. Nicely healed. no signs of infection or inflammation. Left axillary incision- nicely healed. No erythema or infection noted. Palpable lump- located in the 2 o'clock region inferior to the axillary incision measures approximately 8 x 6 cm. Mild tenderness to palpation. Faint erythema noted. Faint blue tint to the area noted. Assessment AND Plan Problems 1. Malignant neoplasm of left breast in female, estrogen receptor positive, unspecified site of breast C50.912; Z17.0 Plan - Complete antibiotics - Continue topical ointment - May apply ice or heat for 20 minutes on and 20 minutes off 3 times per day - Follow-up in [address] Guaman or myself Coding Level of Care Code Global Post Op Diagnoses Malignant neoplasm of left breast in female, estrogen receptor positive, unspecified site of breast C50.912; Z17.0 Breast location: unspecified site of breast Estrogen receptor status: positive Patient sex: female 10/03/17 1441 <Electronically signed by Cynthia Garcia PA-C> Date Cynthia Garcia PA-C Cosigner Signature: Date (if applicable) CC: ONCOLOGY HISTORY AND Observed: 10/01/2017 Status: F Source: [place] PHYSICAL 11:32 AM [facility] REPOSITORY [facility] Medical Records Department [address] [place] [address] History and Physical 10/01/17 1035 MR#: [id number] Acct: [id number] Name: LILIANA MARTÍNEZ Rep #: [id number] : 1950 67 From: Isabel Diggs MD PCP: AUGUSTA Bullock Status: REG RCR Y Location: [facility] - Problem List (1) Primary cancer of left female breast Status: Acute Subjective Date of Service:: 10/01/17 Chief Complaint: Breast cancer History of Present Illness: Patient is a 67-year-old female who presented after she felt a lump in her left breast confirm on a diagnostic mammogram. August 21, 2017 she underwent an ultrasound- guided needle core biopsy from the left breast revealing an invasive ductal carcinoma with mucinous features. Tumor was ER positive (over 95%), ID positive (over 95%) and HER-2/elsie negative. On September 06 she underwent a left breast partial mastectomy with sentinel lymph node biopsy revealing a single focus of invasive ductal cancer measuring 8 mm in maximum diameter overall grade 1 (total score of 4) negative margin 1 cm, lymphovascular invasion not identified, and no metastatic cancer found in 1 sentinel lymph node. Health History: Past Medical History Cancer: Breast cancer Past Medical History (Last Updated 10/01/17 @ 10:28 by Isabel Diggs MD) Heart murmur (Acute) Hyperlipidemia (Acute) Mitral regurgitation (Acute) Obesity (Acute) Psoriasis (Acute) Tricuspid regurgitation (Acute) HTN (hypertension) (Chronic) Past Surgical History (Last Updated 09/27/17 @ 11:57 by Brenna Schilling) History of kidney removal (Acute) History of lumpectomy (Acute) S/P hysterectomy with oophorectomy (Acute) Status post breast reduction (Acute) Family History (Last Reviewed 08/23/17 @ 10:14 by Deisy Verma) Mother Diabetes CAD (coronary artery disease) Hypertension CHF (congestive heart failure) Allergies/Adverse Reactions: Allergy/AdvReac Type Severity Reaction Status Date / Time Penicillins Allergy Intermediate itching Verified 10/01/17 10:39 Risk Factors Social History Smoking Status Never smoker Tobacco Risk Data: Tobacco Risk Smoking Status Never smoker Type of tobacco: Smokeless tobacco usage: Items/Day: Year started: Years used: Counseled to quit/cut down: Reason for no counseling performed: Reason for no pharmacotherapy: Tobacco use comments: Passive smoke exposure: Substance Risk Drug use: Caffeine use [drinks/day]: Alcohol use: Type of alcohol: Drinks per day: Has patient felt the need to cut down: Has the patient been annoyed by complaints: Has the patient felt guilty about drinking: Has the patient needed an eye furnace erector in the mornings: Comments: Review of Systems Constitutional:: Denies: Fever, Sweats, Weight loss, Appetite change, Chills Cardiovascular:: Denies: Chest pain, Palpitations, Dyspnea on exertion, Orthopnea, PND, Shortness of breath Respiratory: Denies: Cough, Hemoptysis, Shortness of Breath, Wheezing Gastrointestinal:: Denies: Abdominal pain, Nausea, Vomiting, Diarrhea, Constipation, Hematochezia Genitourinary: Denies: Dysuria, Hematuria, 15, Flank pain Musculoskeletal:: Reports: Arthritis - Degenerative joint disease mainly symptomatic in her knees and low back limiting her activities, Arthralgia. Denies: Back pain, Myalgia Skin: Reports: Rash - Psoriasis controlled on treatment. Denies: Skin Changes, Wounds Neurological:: Denies: Headache, Dizziness, Visual changes, Tinnitus, Hearing loss Psychiatric: Denies: Anxiety, Depression, Homicidal Ideations, Suicidal Ideations - Physical Exam General: Alert, Oriented x3, No apparent distress, - - Overweight ECOG 1 HEENT: Atraumatic, PERRLA, EOMI, Normocephalic Oropharynx:: Dry mucosa Neck:: Supple, Trachea midline. Negative for: JVD, bilateral Cardiac:: Regular rate, Regular rhythm, Normal S1, Normal S2. Negative for: Murmur Lungs: Clear to auscultation, Excusion symmetrical. Negative for: Rhonchi, Wheezes Abdomen:: Soft, Non-tender, Non-distended. Negative for: Hepatosplenomegaly Extremities:: - - DJD. Negative for: Cyanosis, Edema Neurological: Neuro grossly intact Skin:: Rash - No active psoriasis rash. Negative for: Lesions, Petechiae, Ecchymosis Psychiatric:: Appropriate affect, Euthymic Lymphatics:: Negative for: Cervical lymphadenopathy, Supraclavicular lymphadenopathy Pathology Data: Reviewed in EMR, summarized under HPI Assessment and Plan 67-year-old female with stage IA (T1b, N0, M0) invasive ductal cancer of the left breast, ER positive, ID positive, HER-2 negative, G1. Patient is status post partial mastectomy with sentinel lymph node biopsy. I reviewed the most recent NCCN guidelines and patient is a candidate for adjuvant hormonal therapy plus or minus systemic chemotherapy depending on the Oncotype DX score. She will also be referred for radiation oncology consultation. Comorbid conditions: Overweight, psoriasis, degenerative joint disease, hypertension, dyslipidemia. Patient was seen was her , impression and recommendations were discussed. [facility]. Primary Care Provider: PASTORA BullockC Referring Provider: Abdulaziz Guaman 10/01/17 7955 <Electronically signed by Isabel Diggs MD> Date Isabel Diggs MD Cosigner Signature: Date (if applicable) CC: AUGUSTA Loyola; Isabel Diggs MD; Abdulaziz Guaman MD Signed SURGERY VISIT REPORT Observed: 09/26/2017 Status: F Source: [place] 5:11 PM [facility] REPOSITORY [facility] [address] [place] [address] [address] [place] [address] OFFICE VISIT Date of Service: 09/26/17 MR#: [id number] Acct: [id number] Name: LILIANA MARTÍNEZ Rep #: [id number] : 1950 Provider: Abdulaziz Guaman MD Age/Sex: 67/F Location: [facility] Status: Signed Intake Intake Visit Reasons: F/U LUMPECTOMY 09/06/17 Chief Complaint: left breast mass, pt has disk Allergies Penicillins Allergy (Mild, Verified 08/30/17 15:32) itching Medications betamethasone dipropionate 0.05 % topical ointment 1 applic TOPICAL QDAY 08/21/17 [History Confirmed 09/06/17] calcium carbonate 600 mg calcium (1,500 mg) tablet 600 mg PO QDAY tab 08/21/17 [History Confirmed 09/06/17] cholecalciferol (vitamin D3) 2,000 unit capsule 2,000 unit PO QDAY 08/21/17 [History Confirmed 09/06/17] duloxetine 30 mg capsule,delayed release 30 mg PO QDAY 08/21/17 [History Confirmed 09/06/17] etodolac 500 mg tablet 500 mg PO PRN PRN tab 08/21/17 [History Confirmed 09/06/17] fluticasone 50 mcg/actuation nasal spray,suspension 1 spray INTRANASAL PRN PRN 08/21/17 [History Confirmed 09/06/17] folic acid 1 mg tablet 1 mg PO QDAY 08/21/17 [History Confirmed 09/06/17] lisinopril 40 mg tablet 40 mg PO QDAY 08/21/17 [History Confirmed 09/06/17] lovastatin 40 mg tablet 40 mg PO QDAY 08/21/17 [History Confirmed 09/06/17] methotrexate sodium 2.5 mg tablet 20 mg PO MO tab 08/21/17 [History Confirmed 09/06/17] multivitamin,zd-iuxg-pmztywau tablet 1 tab PO QDAY 08/21/17 [History Confirmed 09/06/17] olopatadine 0.1 % eye drops 1 drp OPHTHALMIC QHS 08/21/17 [History Confirmed 09/06/17] turmeric root extract 500 mg capsule 500 mg PO BID 08/21/17 [History Confirmed 09/06/17] vitamin E (dl, acetate) 400 unit capsule 400 unit PO QDAY 08/21/17 [History Confirmed 09/06/17] Cetirizine HCl [Zyrtec] 10 mg PO DAILY 08/30/17 [History Confirmed 09/06/17] Hydrocodone Bitart/Apap 5-325 [Justin 5MG-325MG] 1 tab PO Q6H PRN PRN 3 Days #10 tab 09/06/17 [Rx] doxycycline monohydrate 100 mg capsule 100 mg PO BID 7 Days #14 cap 09/26/17 [Rx Confirmed 09/26/17] PFSH Medical History Breast cancer (Acute) Breast mass, left (Acute) Heart murmur (Acute) Hyperlipidemia (Acute) Mitral regurgitation (Acute) Obesity (Acute) Psoriasis (Acute) Tricuspid regurgitation (Acute) HTN (hypertension) (Chronic) Surgical History History of kidney removal (Acute) S/P hysterectomy with oophorectomy (Acute) Status post breast reduction (Acute) Family History Mother Diabetes CAD (coronary artery disease) Hypertension CHF (congestive heart failure) Social History Smoking Status: Never smoker HPI HPI HPI: LILIANA MARTÍNEZ, is a 67 F who presents to the office today for surgical follow-up status post lower inner left breast conservation surgery that are performed for her on September 06, 2017. The patient states that she initially felt well. She had no problems with lower inner left breast incision or the left axillary incision. It is of note that methylene blue was injected in the upper outer quadrant of the left breast with additional normal saline to encourage the methylene blue to go through the lymphatics. The patient states that starting approximately a week ago she developed pain and tenderness at that site. She states that the pain and tenderness is rapidly progressing. This is not at the site of her incisions. It is at the site of the methylene blue injection. Assessment AND Plan Problems 1. Breast mass, left N63.20 Plan Final pathology demonstrates tumor size 0.8 x 0.7 x 0.6 cm lower inner left breast. Surgical margins 1 cm. Solitary sentinel lymph node negative for malignancy. 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 Overall grade 1. Lymph vascular invasion not identified. Estrogen receptor greater than 95%. Progesterone receptor greater than 95%. HER-2/elsie is 0. pT1b pN0(sn) Mx Regarding her cancer I have given her the good pathology results. She has had an opportunity to ask and have questions answered. We will make a referral to hematology oncology. Regarding the significant pain and induration at the injection site upper outer quadrant left breast unfortunately this appears to be a significant reaction from the methylene blue causing significant dermal and subdermal inflammatory change. The patient already routinely takes Zyrtec. We will prescribe doxycycline. At this moment I have asked her to utilize cold compresses. She will contact our office on a daily basis by phone providing a progress report. We will have her follow-up next week for ongoing evaluation. A copy of this note will also be forwarded to the [facility] pharmacy department. Cc: Ellis Loyola, COSTUMER ASSISTANT Abdulaziz Guaman M.D., F.A.C.S. Medications New: Coding Level of Care Code No Charge Diagnoses Breast mass, left N63.20 09/26/17 6808 <Electronically signed by Abdulaziz Guaman MD> Date Abdulaziz Guaman MD Cosigner Signature: Date (if applicable) CC: PLC CONTROLS ENGINEER-Stefano Loyola ANTI-DSDNA AB Collected: 09/17/2017 Status: F Source: [place] 12:00 AM [facility] REPOSITORY TYPE CODE TESTS RESULT OUT OF RANGE REFERENCE UNITS LAB L3100.5500 Normal dsDNA AB . Result Comment: TEST RESULT UNITS REF INTERVAL Sjogren's Ab, Anti-SS-A/-SS-B Sjogren's Anti-SS-A <0.2 AI 0.0 - 0.9 Sjogren's Anti-SS-B <0.2 AI 0.0 - 0.9 Antiextractable Nuclear Ag AGENCY CASHIER Antibodies <0.2 AI 0.0 - 0.9 Pabon Antibodies <0.2 AI 0.0 - 0.9 Anti-dsDNA Antibodies Anti-DNA (DS) Ab Qn 1 IU/mL 0 - 9 Negative <5 Equivocal 5 - 9 Positive >9 Anti-Madalyn-1 <0.2 AI 0.0 - 0.9 Antiscleroderma-70 Antibodies <0.2 AI 0.0 - 0.9 Anti-Centromere B Antibodies 2.0 High AI 0.0 - 0.9 TESTING PERFORMED AT [facility]. ORIGINAL REPORT ON FILE IN LAB CONTAINS ADDITIONAL TEST SITE INFORMATION. Performed By: #### L3100.5500 #### [facility] (refer to report for specific site) refer to report for address and phone number COMPLEMENT C3 Collected: 09/17/2017 Status: F Source: [place] 12:00 AM [facility] REPOSITORY TYPE CODE TESTS RESULT OUT OF RANGE REFERENCE UNITS LAB L3100.5700 Normal COMP C3 Result Comment: TEST RESULT UNITS REFERENCE INTERVAL Complement C3, Serum 167 mg/dL 82 - 167 Complement C4, Serum 40 mg/dL 14 - 44 TESTING PERFORMED AT [facility]. ORIGINAL REPORT ON FILE IN LAB CONTAINS ADDITIONAL TEST SITE INFORMATION. Performed By: #### L3100.5700 #### [facility] (refer to report for specific site) refer to report for address and phone number COMPREHENSIVE METABOLIC Collected: 09/17/2017 Status: F Source: [place] [facility] 12:00 AM [facility] REPOSITORY Order Comment: RESULT(S) PREVIOUSLY REPORTED ON MANUAL REQUISITION DURING DOWNTIME. TYPE CODE TESTS RESULT OUT OF RANGE REFERENCE UNITS LAB L501.0100 74-106 mg/dL Normal GLU 105 Result Comment: Fasting Glucose result from 100 to 125 mg/dL suggests IMPAIRED HOMEOSTASIS per A.D.A. criteria. Please note revised GLUCOSE reference range effective 2017. LAB L501.1000 7-18 mg/dL High BUN 22 LAB L501.1100 0.55-1.02 mg/dL Normal CREAT,SERUM 0.93 Result Comment: The validity of the calculated GFR AND GFRAA in patients over 70 years has not been determined. Clinical correlation is essential. LAB L501.1110 >60 mL/min Normal EST GFR 64 LAB L501.1115 >60 mL/min Normal EST GFR - AA 78 LAB L501.1300 10-20 RATIO High BUN/CRE 23.7 LAB L501.1500 6.4-8.2 g/dL Normal T PROT 7.1 LAB L501.1800 3.2-5.0 g/dL Normal ALB 3.7 LAB L501.1950 2.2-4.2 g/dL Normal GLOB 3.4 LAB L501.2000 0.9-2.4 RATIO Normal A/G 1.1 LAB L501.2200 8.5-10.1 mg/dL Normal CA 9.0 LAB L501.4100 15-37 U/L Normal AST 19 LAB L501.4305 45-117 U/L Normal ALK P 79 LAB L501.4405 13-56 U/L Normal ALT 23 LAB L501.4600 0.20-1.00 mg/dL Normal T BILI 0.20 LAB L501.5300 136-145 mmol/L Normal NA 142 LAB L501.5600 3.5-5.1 mmol/L Normal K 4.0 LAB L501.5900 98-107 mmol/L Normal CL 104 LAB L501.6100 21.0-32.0 mmol/L Normal CO2 27.0 LAB L501.6200 5-15 Normal GAP 11 Performed By: #### L500.4050 #### [facility] [address] [place], [address] PROTEIN+CREATININE Collected: Status: F Source: [place] RATIO,URINE 09/17/2017 12:00 AM [facility] REPOSITORY Order Comment: RESULT(S) PREVIOUSLY REPORTED ON MANUAL REQUISITION DURING DOWNTIME. TYPE CODE TESTS RESULT OUT OF RANGE REFERENCE UNITS LAB L501.1200 NO RANGE EST. mg/dL Normal UR CREAT 146.00 LAB L501.1930 <11.9 mg/dL Normal 9.5 PROTEIN,UR.R AN. LAB L501.1940 0-200 mg/g CRE Normal PROT:CRE 60 RATIO Performed By: #### L501.0900 #### [facility] [address] [place], [address] CBC W/DIFF, AUTOMATED Collected: 09/17/2017 Status: F Source: [place] 12:00 AM [facility] REPOSITORY Order Comment: RESULT(S) PREVIOUSLY REPORTED ON MANUAL REQUISITION DURING DOWNTIME. TYPE CODE TESTS RESULT OUT OF RANGE REFERENCE UNITS LAB L100.1000 4.4-11.0 K/mm3 High WBC 11.3 LAB L100.1200 4.2-5.4 M/mm3 Low RBC 3.95 LAB L100.1300 12.0-15.0 g/dl Low HGB 11.7 LAB L100.1400 37-47 % Normal HCT 37.4 LAB L100.1500 81-99 fL Normal MCV 94.7 LAB L100.1600 27.0-32.0 pg Normal MCH 29.6 LAB L100.1700 32-36 g/gl Low MCHC 31.3 LAB L100.1810 11.6-14.6 % Normal RDW CV 14.3 LAB L100.1820 35.1-43.9 fl High RDW SD 46.3 LAB L100.1900 150-450 K/mm3 Normal PLT 353 LAB L100.2000 6.2-12.0 fl Normal MPV 10.1 LAB L100.2100 47-70 % Normal NEUT% 65.3 LAB L100.2200 19-41 % Normal LY% 26.0 LAB L100.2300 0-10 % Normal MONO% 7.0 LAB L100.2400 0-5 % Normal EO% 1.1 LAB L100.2500 0-1 % Normal BASO% 0.2 LAB L100.2550 0.0-0.9 % Normal IM GRAN % 0.400 Result Comment: IG% - Immature Granulocytes (promyelocytes, myelocytes and metamyelocytes) > 1% indicates that a LEFT SHIFT is Present. LAB L100.2620 2.0-7.7 X10 3/uL Normal Absolute Neut 7.4 LAB L100.2720 0.83-4.51 X10 3/ul Normal Absolute Lymph 2.95 Performed By: #### L100.0100 #### [facility] [place], [place], [address] URINALYSIS, ROUTINE Collected: 09/17/2017 Status: F Source: [place]LE (DIPSTICK) 12:00 AM [facility] REPOSITORY Order Comment: How was Urine Obtained? CLEAN CATCH TYPE CODE TESTS RESULT OUT OF RANGE REFERENCE UNITS LAB L400.3000 Yellow COLOR Normal Yellow LAB L400.3050 Clear Sl Normal CLARITY Cloudy LAB L400.3200 Normal mg/dl Normal GLUCOSE, UR NEGATIVE LAB L400.3300 Negative mg/dL Normal BILIRUBIN URINE Negative LAB L400.3400 Negative mg/dl Normal KETONE UR Negative LAB L400.3465 1.002-1.030 Normal SP.GR. DIPSTX 1.025 LAB L400.3550 5.0 - 8.0 pH UR Normal 6.0 LAB L400.3600 Negative mg/dl High PROT 15 DIPSTX LAB L400.3700 Normal mg/dl Normal UROBILI Normal LAB L400.3750 Negative High NITRITE UR Positive LAB L400.3780 Negative /ul High 50 OCCULT BLOOD-UR LAB L400.3800 Negative /ul LEUK 2+ Normal ESTERASE Performed By: #### L400.2010 #### [facility] [address] [place], [address] DISCHARGE INSTRUCTION Observed: 09/07/2017 Status: F Source: [place] 5:37 AM [facility] REPOSITORY [facility] Medical Records Department [address] [place] [address] Instructions for Home/Discharge Instructions 09/06/17 1024 MR#: [id number] Acct: [id number] Name: LILIANA MARTÍNEZ Rep #: [id number] : 1950 67 From: Abdulaziz Guaman MD PCP: AUGUSTA Bullock Status: DEP [facility] Discharge Diet: No Restrictions Discharge Activity: May Not Drive - for 2-3 days or while taking narcotic pain meds. May shower in (days): 1 Lifting Restrictions: 10 pounds for 1 week. Call your doctor if your incision/area has: Continuous Slow Oozing, Sudden Increased Bleeding Call your doctor if you observe: Fever of 101 or Higher Suture Line Care: Avoid Pulling/Pushing, Avoid Pinching/Bending Remove Dressing in (days):: 1 - Remove bulky dressing tomorrow. May leave any opsite dressing for 3-4 days. Keep dressing in place until your follow-up appointment. Additional Dressing/Incision Instructions:: Remove bulky dressing tomorrow. May leave any opsite dressing for 3-4 days. Keep dressing in place until your follow-up appointment. Allergies/Adverse Reactions: Allergies Penicillins Allergy (Mild, Verified 08/30/17 15:32) itching Medications to take at Discharge betamethasone dipropionate 0.05 % topical ointment 1 applic TOPICAL QDAY 08/21/17 calcium carbonate 600 mg calcium (1,500 mg) tablet 600 mg PO QDAY tab 08/21/17 cholecalciferol (vitamin D3) 2,000 unit capsule 2,000 unit PO QDAY 08/21/17 duloxetine 30 mg capsule,delayed release 30 mg PO QDAY 08/21/17 etodolac 500 mg tablet 500 mg PO PRN PRN tab 08/21/17 fluticasone 50 mcg/actuation nasal spray,suspension 1 spray INTRANASAL PRN PRN 08/21/17 folic acid 1 mg tablet 1 mg PO QDAY 08/21/17 lisinopril 40 mg tablet 40 mg PO QDAY 08/21/17 lovastatin 40 mg tablet 40 mg PO QDAY 08/21/17 methotrexate sodium 2.5 mg tablet 20 mg PO MO tab 08/21/17 multivitamin,ra-prmq-ugdhykys tablet 1 tab PO QDAY 08/21/17 olopatadine 0.1 % eye drops 1 drp OPHTHALMIC QHS 08/21/17 turmeric root extract 500 mg capsule 500 mg PO BID 08/21/17 vitamin E (dl, acetate) 400 unit capsule 400 unit PO QDAY 08/21/17 Cetirizine HCl [Zyrtec] 10 mg PO DAILY 08/30/17 Hydrocodone Bitart/Apap 5-325 [Justin 5MG-325MG] 1 tablet PO Q6H PRN PRN 3 Days #10 tablet 09/06/17 The following prescriptions were given: Hydrocodone Bitart/Apap 5-325 [Justin 5MG-325MG] 1 tablet PO Q6H PRN PRN 3 Days #10 tablet PRN Reason: Pain Primary Care Physician: Marisel Loyola NP-C [Primary Care Provider] - Please Follow Up With: Abdulaziz Guaman MD When: [phone] Office appt approximately 10 days Please Follow Up With: 09/07/17 0537 <Electronically signed by Abdulaziz Guaman MD> Date Abdulaziz Guaman MD CC: AUGUSTA Loyoal OPERATIVE REPORT Observed: 09/07/2017 Status: F Source: [place] 5:37 AM [facility] REPOSITORY [facility] Medical Records Department [address] [place] [address] Operative Report 09/06/17 1130 MR#: [id number] Acct: [id number] Name: LILIANA MARTÍNEZ Rep #: [id number] : 1950 67 From: Abdulaziz Guaman MD PCP: PASTORA BullockC Status: DEP [facility] Y Location: [facility] Problem List (1) Breast cancer Status: Acute Qualifiers: Breast location: lower inner quadrant of breast Estrogen receptor status: positive Patient sex: female Laterality: left Qualified Code(s): C50.312 - Malignant neoplasm of lower-inner quadrant of left female breast; Z17.0 - Estrogen receptor positive status [ER+] Report of Operation Date of Procedure: 09/06/17 Pre-Operative Diagnosis: 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 67-year-old female was taken to the operating. General general anesthesia. The left arm was carefully wrapped with soft roll and placed at right angles to the table. The left periareolar breast was prepped with alcohol. 4 cc of methylene blue dye was used. This was then chased with 10 cc of saline. Massage was performed for 3 minutes. The left breast was sterilely prepped and draped. Under ultrasound guidance the 7:00 lesion was identified with a marking clip in place. A 20-gauge Kopans needle was advanced under ultrasound guidance into the lesion. The wire was displaced. Imaging demonstrated excellent localization. A transverse oblique incision was made in the left axilla. Sharp dissection carried down through the substance tissue. Hemostasis obtained with electrocautery. 2 lymphatic channels were identified draining to the same blue lymph node. This was dissected free. Some additional deeper fibrofatty tissue was resected. Visual inspection and palpation failed to reveal any additional enlarged lymph nodes. Node removed was not enlarged or otherwise suspicious. Visualization would reveal any additional blue dye tracking. Hemostasis was nicely intact. That wound was 3-0 Vicryl and the skin edges proximate running septic or 4 Monocryl. 0.5% Marcaine was used as local anesthetic and it was anesthetized. The patient's 7:00 infra-areolar lower inner left breast lesion was identified. Patient has had previous breast reduction surgery. Because of its positioning only means of excision was to do a vertical elliptical excision. I performed that used electrocautery to completely dissect around the lesion. The wire was utilized to assist with that resection. Specimen was excised intact sent for mammography with a lesion and marking clip in question was identified. The specimen was then sent to pathology and the biopsy cavity and clear margin was identified. The wound was irrigated with saline. The wound was approximated deep layer of interrupted 3-0 Vicryl and the skin edges approximated with interrupted 4 Monocryl subdermal stitches. Again the 0.5% Marcaine was used as local anesthetic. Throughout the procedure total 30 cc was used. Steri-Strips Telfa OpSite bulky dry dressings applied. Sponge instrument and needle count were reported to the surgeon to be correct. Blood loss was quite minimal. She tired procedure well was taken to the recovery or insect condition without apparent complication. Drains none. Specimens left axillary sentinel lymph node and left lower inner breast mass. Blood loss minimal. Abdulaziz Guaman M.D., F.A.C.S. Type of Anesthesia:: General Anesthesiologist: Todd Castillo 09/07/17 0537 <Electronically signed by Abdulaziz Guaman MD> Date Abdulaziz Guaman MD CC: AUGUSTA Loyola; Abdulaziz Guaman MD Signed BREAST BIOPSY Observed: 09/06/2017 Status: F Source: [place] SPECIMEN 11:20 AM [facility] REPOSITORY [facility] Imaging Services [address] [place] [address] Breast Biopsy Specimen MR#: [id number] Acct: [id number] Name: LILIANA MARTÍNEZ Rep #: [id number] : 1950 F 67 From: Salinas Neal MD PCP: AUGUSTA Bullock Status: [facility] Study: Breast Biopsy Specimen Date of Exam: 09/06/17 Exam# [id number] Ordering Dr: Abdulaziz Guaman MD SURGICAL BREAST SPECIMEN RADIOGRAPH CLINICAL: Document presence of tissue clip marker in biopsy specimen. FINDINGS: Specimen shows presence of tissue clip marker. Electronically Signed: Salinas Neal MD at 13:46 EDT Tel [phone], Service support , BI/Breast Biopsy Specimen CC: AUGUSTA Loyola; Abdulaziz Guaman MD Lcpc: Signed AXILLARY NODE BIOPSY Observed: 09/06/2017 Status: F Source: [place] 12:00 AM [facility] REPOSITORY Patient: LILIANA MARTÍNEZ : 1950 (67/F) Acct Num: [id number] Phys: Deniz BURNETTE,Abdulaziz Unit Num: [id number] Loc: [facility] Specimen: Received: 09/06/171108 Spec Type: AX NODE BX TISSUES TISSUES: A. Axillary lymph node, NOS B. Left breast, NOS COMMENT A. The lymph node is negative for metastatic carcinoma on multiple H AND E levels and immunohisto-chemical stains for cytokeratins (LP52-477). B. The tumor is present in two blocks (#3 and 4). Case has been reviewed in consultation with Dr. Schilling who concurs with the above diagnosis. IDC:AM FROZEN SECTION DIAGNOSIS A. Left sentinel lymph node, biopsy: One lymph node, negative for metastatic carcinoma. SJ:ramin 09/06/17 GROSS DESCRIPTION A - Received fresh for frozen section diagnosis labeled with the patient's name is a specimen designated left breast sentinel lymph node. The specimen consists of a piece of adipose tissue containing one nodule consistent with lymph node measuring 4.5 x 3.5 x 1.5 cm. The lymph node measures 1 cm in greatest dimension. The entire specimen is submitted in two cassettes as follows: 1 frozen section, one lymph node bisected, 2 rest of the specimen. / SJ:ramin 09/06/17 B - Received fresh for intraoperative consultation labeled with the patient's name is a specimen designated left breast mass. The specimen consists of a piece of fibroadipose tissue with needle localization measuring 5.5 x 5 x 3 cm. A piece of skin is noted anteriorly measuring 3 x 1.2 cm. The specimen is oriented as follows: wire lateral, short stitch superior, skin anterior. The specimen is inked as follows: anterior yellow, posterior black, superior blue, inferior green, medial red and lateral blue. Serial sections reveal a biopsy cavity measuring 1 x 1 x 0.5 cm. This cavity is 1 cm away from the closest superior margin of the specimen. This information is conveyed to the surgeon intraoperatively. Sections of the rest of the tissue reveal yellow adipose cut surfaces mixed with salinas-white fibrous area. Storage Engineer sections are submitted in eight cassettes as follows: 1 - perpendicular medial, lateral and inferior margins, 2 perpendicular anterior and posterior margins and skin, 3 AND 4 entire biopsy cavity with surrounding tissue (3 contains closest superior margin), 5-9 - accounts payable representative sections from the other areas. / SJ:rg 09/07/17 TC:0 CPT: 68218 x2, 39094, 76476 HEADER OPERATION: Breast lumpectomy, sentinel node, ultrasound-guided NL PRE-OP DIAGNOSIS: Malignant neoplasm of lower inner quadrant of left breast TISSUE SUBMITTED: A Left breast sentinel lymph node to path at 1106, B Left breast mass wire comes out lateral, short stitch superior, skin anterior, to mammography at 1116 MICROSCOPIC DESCRIPTION Slides are reviewed. MICROSCOPIC DIAGNOSIS A. Left sentinel lymph node, biopsy: One lymph node, negative for metastatic carcinoma. B. Left breast mass, lumpectomy with needle localization: Invasive mucinous carcinoma (colloid carcinoma). See cancer summary below. INVASIVE BREAST CANCER SUMMARY: Specimen partial breast Procedure excision with wire-guided localization Lymph node sampling sentinel lymph node Specimen integrity single intact specimen Specimen size 5.5 x 5 x 3 cm Specimen laterality - left Tumor site lower inner quadrant (as per clinical information) Tumor size 0.8 x 0.7 x 0.6 cm (measured microscopically). See comment. Tumor focality single focus of invasive carcinoma Macroscopic and Microscopic extent of tumor: Skin invasive carcinoma does not invade into the dermis or epidermis Nipple not applicable Skeletal muscle - not applicable Ductal carcinoma in situ (DCIS) no ductal carcinoma in situ is present. Lobular carcinoma in situ (LCIS) not identified Histologic type of invasive carcinoma invasive mucinous carcinoma (colloid carcinoma) Histologic Grade (Cambridge grade): Glandular/tubular differentiation - score 2 Nuclear pleomorphism - score 1 Mitotic count score 1 Overall grade - 1 (score of 4) Margins: Margins uninvolved by invasive carcinoma. The tumor is 1 cm away from the closest superior margin. Treatment effect: Response to presurgical (neoadjuvant) therapy - no known presurgical therapy. Lymph-Vascular invasion not identified Dermal lymph-vascular invasion - not identified Lymph nodes: Number of sentinel lymph nodes examined - 1 Total number of lymph nodes examined (sentinel and nonsentinel) - 1 Number of lymph nodes with macrometastases, micrometastases and isolated tumor cells - 0 Method of evaluation of sentinel lymph nodes - H AND E, multiple levels and IHC. Distance metastasis not applicable Additional pathologic findings intraductal hyperplasia with focal atypia. Changes consistent with previous biopsy site. Ancillary studies - previously performed on section of tumor ([id number] / RF18 -336). ER positive (>95%, strong) ID - positive (>95%, strong) Her2 elsie negative (0) Microcalcifications not identified Clinical history - Please make reference to previous specimen ([id number]) left breast, ultrasound-guided core biopsy with diagnosis of invasive ductal carcinoma with mucinous features. PATHOLOGIC STAGE: pT1b pN0(sn) Mx The above summary is in compliance with [employer] (CAP) Cancer Protocols Checklist and [place] Joint Committee on Cancer (AJCC), Staging Manual, 8th Ed. SJ:ramin 09/11/17 Signed Elia Gómez 09/12/17 <signature on file> Performed By: #### PAXNB #### [facility] [address] [place], [address] IMMUNOHISTOCHEMISTRY Observed: 09/06/2017 Status: F Source: [place] 12:00 AM [facility] REPOSITORY Patient: LILIANA MARTÍNEZ : 1950 (67/F) Acct Num: [id number] Phys: Deniz BURNETTE,Abdulaziz Unit Num: [id number] Loc: [facility] Specimen: [id number] Received: 09/11/17 - 1233 Spec Type: IMMUNO TISSUES TISSUES: A. Axillary lymph node, NOS - #1 SPECIMEN INFORMATION: Tissue Source: A Left sentinel lymph node biopsy Clinical Info: Malignant neoplasm of lower inner quadrant of left breast Specimen Number: [id number] CPT code: 72707, 98433 METHODOLOGY: Deparaffinized sections of prefer/formalin-fixed tissue or PAP/DQ stained slides are incubated with monoclonal/polyclonal antibodies/oligonucleotide probes. Localization is made via biotin free immunoperoxidase method. Appropriate controls are performed and reacted as expected. Results on target cell population are indicated in the following table: RESULTS: ANTIBODY / CLONE RESULT Block A1 AE1-3 (AE1/AE3/PCK26) negative CK7 (OV-TL12/30) negative These tests were developed and their performance characteristics determined by [facility]. They may not have been cleared or approved by the U.S. Food and Drug Administration. The FDA has determined that such clearance or approval is not necessary. INTERPRETATION: A. Left sentinel lymph node, biopsy: One lymph node, negative for metastatic carcinoma. SJ:ramin 09/12/17 PHYSICIAN AND INSTITUTION [place] [address] Signed Elia Gómez 09/12/17 <signature on file> Performed By: #### PIMM #### [facility] [address] [place] [address]. [place], [address] 12 LEAD ELECTROCARDIOGRAM Observed: 09/03/2017 Status: F Source: [place] 2:57 PM [facility] REPOSITORY [facility] Cardiovascular Services [address] [place] [address] 12 Lead EKG 08/31/17 0923 MR#: [id number] Acct: [id number] Name: LILIANA MARTÍNEZ Rep #: [id number] : 1950 67 From: Kurtis Florez MD Attending Dr: Abdulaziz Guaman MD Status: PRE [facility] Ordering Dr: Abdulaziz Guaman MD Date: 08/31/17 Location: [facility] Sex: F C Admitted: Test Reason : PRE OP Blood Pressure : / mmHG Vent. Rate : 068 BPM Atrial Rate : 068 BPM P-R Int : 166 ms QRS Dur : 082 ms QT Int : 360 ms P-R-T Axes : 040 019 040 degrees QTc Int : 382 ms Normal sinus rhythm Low voltage QRS Borderline ECG Confirmed by KURTIS FLOREZ MD ([id number]), editor at large CORKY MONET ([id number]) on 09/03/2017 2:56:47 PM Referred By: Abdulaziz Guaman Confirmed By:KURTIS FLOREZ MD 09/03/17 1456 Date Kurtis Florez MD CC: PLC CONTROLS ENGINEER-C Marisel Loyola; Abdluaziz Guaman MD Signed CHEST PA AND LATERAL Observed: 08/31/2017 Status: F Source: [place] 8:59 AM [facility] REPOSITORY [facility] Imaging Services [address] [facility] [place] [address] Chest PA and Lateral MR#: [id number] Acct: [id number] Name: LILIANA MARTÍNEZ Rep #: [id number] : 1950 F 67 From: Salinas Neal MD PCP: AUGUSTA Bullock Status: PRE SDC Study: Chest PA and Lateral Date of Exam: 08/31/17 Exam# [id number] Ordering Dr: Abdulaziz Guaman MD STUDY: X-RAY CHEST REASON FOR EXAM: Female, 67 years old. Preoperative evaluation. History of breast cancer. TECHNIQUE: PA and lateral views of the chest. COMPARISON: None. FINDINGS: The lungs are clear and expanded. Scattered calcified granulomas. There is no demonstrated pleural abnormality. Normal size heart. Normal mediastinum and estee. Normal visualized pulmonary arteries. There is atherosclerotic calcification of the aortic arch with tortuosity. There are diffuse degenerative changes of the visualized thoracic spine. Normal visualized ribs, clavicles, and shoulders. There is no demonstrated abnormality of the visualized soft tissue structures of the upper abdomen. RAD/Chest PA and Lateral IMPRESSION: Normal x-ray examination of the chest. Electronically Signed: Salinas Neal MD at 9:34 EDT Tel [phone], Service support , CC: AUGUSTA Loyola; Abdulaziz Guaman MD Lcpc: Signed CBC-COMPLETE BLOOD CNT Collected: 08/31/2017 Status: F Source: [place] NO DIFF 8:35 AM [facility] REPOSITORY TYPE CODE TESTS RESULT OUT OF RANGE REFERENCE UNITS LAB L100.1000 4.4-11.0 K/mm3 Normal WBC 9.5 LAB L100.1200 4.2-5.4 M/mm3 Low RBC 4.08 LAB L100.1300 12.0-15.0 g/dl Normal HGB 12.4 LAB L100.1400 37-47 % Normal HCT 37.7 LAB L100.1500 81-99 fL Normal MCV 92.4 LAB L100.1600 27.0-32.0 pg Normal MCH 30.4 LAB L100.1700 32-36 g/gl Normal MCHC 32.9 LAB L100.1810 11.6-14.6 % Normal RDW CV 14.4 LAB L100.1820 35.1-43.9 fl High RDW SD 47.2 LAB L100.1900 150-450 K/mm3 Normal PLT 365 LAB L100.2000 6.2-12.0 fl Normal MPV 9.5 Performed By: #### L100.0500 #### [facility] [address] [place], [address] COMPREHENSIVE METABOLIC Collected: 08/31/2017 Status: F Source: [place] PROFIL 8:35 AM [facility] REPOSITORY TYPE CODE TESTS RESULT OUT OF RANGE REFERENCE UNITS LAB L501.0100 74-106 mg/dL High GLU 109 Result Comment: Fasting Glucose result from 100 to 125 mg/dL suggests IMPAIRED HOMEOSTASIS per A.D.A. criteria. Please note revised GLUCOSE reference range effective 2017. LAB L501.1000 7-18 mg/dL Normal BUN 15 LAB L501.1100 0.55-1.02 mg/dL Normal CREAT,SERUM 0.80 Result Comment: The validity of the calculated GFR AND GFRAA in patients over 70 years has not been determined. Clinical correlation is essential. LAB L501.1110 >60 mL/min Normal EST GFR 76 Result Comment: Non- GFR Calc LAB L501.1115 >60 mL/min Normal EST GFR - AA 92 Result Comment: GFR Calc LAB L501.1300 10-20 RATIO Normal BUN/CRE 18.8 LAB L501.1500 6.4-8.2 g/dL T Normal PROT 7.5 LAB L501.1800 3.2-5.0 g/dL Normal ALB 3.6 LAB L501.1950 2.2-4.2 g/dL Normal GLOB 3.9 LAB L501.2000 0.9-2.4 RATIO Normal A/G 0.9 LAB L501.2200 8.5-10.1 mg/dL CA Normal 9.1 LAB L501.4100 15-37 U/L Low AST 14 LAB L501.4305 45-117 U/L Normal ALK P 73 LAB L501.4405 13-56 U/L Normal ALT 22 LAB L501.4600 0.20-1.00 mg/dL T Normal BILI 0.70 LAB L501.5300 136-145 mmol/L NA Normal 140 LAB L501.5600 3.5-5.1 mmol/L K Normal 4.2 LAB L501.5900 98-107 mmol/L CL Normal 105 LAB L501.6100 21.0-32.0 mmol/L Normal CO2 27.0 LAB L501.6200 5-15 Normal GAP 8 Performed By: #### L500.4050 #### [facility] [address] [place], [address] BREAST W/O AND/OR W Observed: 08/30/2017 Status: F Source: MICHELLE CONT BILAT 10:27 AM [facility] REPOSITORY [facility] Imaging Services [address] [place] [address] Breast w/o and/or W Cont Bilat MR#: [id number] Acct: [id number] Name: LILIANA MARTÍNEZ Rep #: [id number] : 1950 F 67 From: Jake Hall MD PCP: Marisel Loyola, [employer] CONTROLS ENGINEER-C Status: REG CLI Study: Breast w/o and/or W Cont Bilat Date of Exam: 08/30/17 Exam# [id number] Ordering Dr: Abdulaziz Guaman MD STUDY: BILATERAL BREAST MR WITHOUT AND WITH CONTRAST REASON FOR EXAM: Female, 67 years old. History of bilateral breast reduction surgery. Palpable lump in left breast. Left breast biopsy August 23, 2017 showed invasive duct carcinoma with mucinous features. TECHNIQUE: Multi-sequence multi-echo imaging of both breasts was performed with a dedicated breast coil. T1-weighted and T2- weighted images were performed before the administration of contrast. T1- weighted images were also performed after the administration of 10 mL of Gadavist contrast intravenously without complications. COMPARISON: Bilateral mammograms dated August 17, 2017 and Limited left breast ultrasound dated August 17, 2017. FINDINGS: RIGHT BREAST: The breast tissue is fatty with minimal background enhancement. There are no abnormal enhancing masses or areas of non-mass enhancement in the right breast. LEFT BREAST: The breast tissue is fatty with minimal background enhancement. There is a tissue clip marker in the left breast in the area of the biopsy (axial series 500 images 198-to 10). The mass seen on the mammogram and the ultrasound study is actually not identified on the MRI scan. There are no abnormal enhancing masses or areas of non-mass enhancement in the left breast. There are normal-appearing lymph nodes in both axillary. There is no abnormality in the visualized regions of the chest or liver. MRI/Breast w/o and/or W Cont Bilat IMPRESSION: Tissue clip marker in the left breast in the area of the biopsy was no enhancing mass. No other significant abnormality. CATEGORY: BIRADS Category 6: Known Biopsy-Proven Malignancy - Appropriate Action Should Be Taken. A letter regarding these results will be sent to the patient by the facility within 30 days. Electronically Signed: Jake Hall MD at 10:40 EDT , Service support , CC: AUGUSTA Loyola; Abdulaziz Guaman MD Lcpc: Signed SURGERY VISIT REPORT Observed: 08/23/2017 Status: F Source: MICHELLE 3:49 PM [facility] REPOSITORY [facility] [address] [place] [address] OFFICE VISIT Date of Service: 08/23/17 MR#: [id number] Acct: [id number] Name: LILIANA MARTÍNEZ Rep #: [id number] : 1950 Provider: Abdulaziz Guaman MD Age/Sex: 67/F Location: [facility] Status: Signed Intake Intake Visit Reasons: post breast biop Chief Complaint: left breast mass, pt has disk Tilt Tray Driver Required: No Is patient in pain?: No Allergies Penicillins Allergy (Mild, Verified 08/23/17 10:14) itching Medications betamethasone dipropionate 0.05 % topical ointment 1 applic TOPICAL QDAY 08/21/17 [History Confirmed 08/23/17] calcium carbonate 600 mg calcium (1,500 mg) tablet 600 mg PO QDAY tab 08/21/17 [History Confirmed 08/23/17] cetirizine 10 mg tablet 5 mg PO QDAY 08/21/17 [History Confirmed 08/23/17] cholecalciferol (vitamin D3) 2,000 unit capsule 2,000 unit PO QDAY 08/21/17 [History Confirmed 08/23/17] duloxetine 30 mg capsule,delayed release 30 mg PO QDAY 08/21/17 [History Confirmed 08/23/17] etodolac 500 mg tablet 500 mg PO QDAY tab 08/21/17 [History Confirmed 08/23/17] fluticasone 50 mcg/actuation nasal spray,suspension 1 spray INTRANASAL QDAY 08/21/17 [History Confirmed 08/23/17] folic acid 1 mg tablet 1 mg PO QDAY 08/21/17 [History Confirmed 08/23/17] glucosamine HCl 1,500 mg tablet 1,500 mg PO QDAY 08/21/17 [History Confirmed 08/23/17] lisinopril 40 mg tablet 40 mg PO QDAY 08/21/17 [History Confirmed 08/23/17] lovastatin 40 mg tablet 40 mg PO QDAY 08/21/17 [History Confirmed 08/23/17] methotrexate sodium 2.5 mg tablet 20 mg PO QDAY tab 08/21/17 [History Confirmed 08/23/17] multivitamin,gg-yvei-nhidzshq tablet 1 tab PO QDAY 08/21/17 [History Confirmed 08/23/17] olopatadine 0.1 % eye drops 1 drp OPHTHALMIC BID 08/21/17 [History Confirmed 08/23/17] turmeric root extract 500 mg capsule 500 mg PO QDAY 08/21/17 [History Confirmed 08/23/17] vitamin E (dl, acetate) 400 unit capsule 400 unit PO QDAY 08/21/17 [History Confirmed 08/23/17] PFSH Medical History Breast mass, left (Acute) Heart murmur (Acute) Hyperlipidemia (Acute) Mitral regurgitation (Acute) Obesity (Acute) Psoriasis (Acute) Tricuspid regurgitation (Acute) HTN (hypertension) (Chronic) Surgical History History of kidney removal (Acute) S/P hysterectomy with oophorectomy (Acute) Status post breast reduction (Acute) Family History Mother Diabetes CAD (coronary artery disease) Hypertension CHF (congestive heart failure) Social History Smoking Status: Never smoker HPI HPI HPI: LILIANA MARTÍNEZ, is a 67 F who presents to the office today for surgical follow-up status post a ultrasound-guided needle core biopsy left breast 6 o'clock position. My previous notes reflect the following on her office visit of August 21, 2017: Surgery Visit - 08/21/17 [facility] [address] [place], [place] [address]fel[address]. [address] [place] [address] OFFICE VISIT Date of Service: 08/21/17 MR#:[id number] Name: LILIANA MARTÍNEZ ARep #:[id number] : 1950 Provider:Abdulaziz Guaman MD Age/Sex: 67/F Location:[facility] Status:Signed Intake Vital Signs 08/21/17 Height 5 ft 4 in 08/21/17 Weight: 220 lb 3 oz 08/21/17 Body Mass Index (BMI) 37.8 08/21/17 Blood Pressure 139/80 08/21/17 Blood Pressure Location Rt brachial 08/21/17 Blood Pressure Position Sitting 08/21/17 Respiratory Rate 20 08/21/17 Pulse Rate 81 08/21/17 Pulse Ox 97 Intake Visit Reasons: LEFT BREAST MASS, U/S AND MAMMO @ [facility] Chief Complaint: left breast mass, pt has disk Tilt Tray Driver Required: No Is patient in pain?: No Allergies Penicillins Allergy (Mild, Verified 08/21/17 07:43) itching Medications betamethasone dipropionate 0.05 % topical ointment 1 applic TOPICAL QDAY 08/21/17 [History Confirmed 08/21/17] calcium carbonate 600 mg calcium (1,500 mg) tablet 600 mg PO QDAY tab 08/21/17 [History Confirmed 08/21/17] cetirizine 10 mg tablet 5 mg PO QDAY 08/21/17 [History Confirmed 08/21/17] cholecalciferol (vitamin D3) 2,000 unit capsule 2,000 unit PO QDAY 08/21/17 [History Confirmed 08/21/17] duloxetine 30 mg capsule,delayed release 30 mg PO QDAY 08/21/17 [History Confirmed 08/21/17] etodolac 500 mg tablet 500 mg PO QDAY tab 08/21/17 [History Confirmed 08/21/17] fluticasone 50 mcg/actuation nasal spray,suspension 1 spray INTRANASAL QDAY 08/21/17 [History Confirmed 08/21/17] folic acid 1 mg tablet 1 mg PO QDAY 08/21/17 [History Confirmed 08/21/17] glucosamine HCl 1,500 mg tablet 1,500 mg PO QDAY 08/21/17 [History Confirmed 08/21/17] lisinopril 40 mg tablet 40 mg PO QDAY 08/21/17 [History Confirmed 08/21/17] lovastatin 40 mg tablet 40 mg PO QDAY 08/21/17 [History Confirmed 08/21/17] methotrexate sodium 2.5 mg tablet 20 mg PO QDAY tab 08/21/17 [History Confirmed 08/21/17] multivitamin,sg-nguz-qprfcmgf tablet 1 tab PO QDAY 08/21/17 [History Confirmed 08/21/17] olopatadine 0.1 % eye drops 1 drp OPHTHALMIC BID 08/21/17 [History Confirmed 08/21/17] turmeric root extract 500 mg capsule 500 mg PO QDAY 08/21/17 [History Confirmed 08/21/17] vitamin E (dl, acetate) 400 unit capsule 400 unit PO QDAY 08/21/17 [History Confirmed 08/21/17] Is last menstrual period known: No Post menopausal: Yes Patient : No PFSH Medical History Breast mass, left (Acute) Heart murmur (Acute) Hyperlipidemia (Acute) Mitral regurgitation (Acute) Obesity (Acute) Psoriasis (Acute) Tricuspid regurgitation (Acute) HTN (hypertension) (Chronic) Surgical History History of kidney removal (Acute) S/P hysterectomy with oophorectomy (Acute) Status post breast reduction (Acute) Family History Mother Diabetes CAD (coronary artery disease) Hypertension CHF (congestive heart failure) Social History Smoking Status: Never smoker HPI HPI HPI: LILIANA MARTÍNEZ, is a 67 F who presents to the office today for surgical consultation regarding a palpable 6:00 left breast mass. The patient is referred by her primary care practitioner Ellis Loyola [facility]. 5-year-old female. A2. Menarche at age 13. First child born when she was 16. No previous breast biopsies. Not on estrogen replacement. Family history is negative for breast cancer. She has had a remote breast reduction surgery. She has also had a remote left nephrectomy for chronic infection and atrophy. She is on methotrexate for arthritis and has mitral valve prolapse which require antibiotic prophylaxis. She was able to detect on her own a left breast 6:00 mass. There is been no nipple discharge or drainage. This area is not tender. She subsequently had at [facility] bilateral mammography that was performed on August 17, 2017. Both breasts has scattered fibroglandular tissue. There is a 9 mm irregular density left breast 7 o'clock position superficially placed. BI-RADS Category 0. Subsequently a left breast ultrasound was obtained. This demonstrated a 1 cm lobulated lesion left breast 6:00 anterior position. BI-RADS Category 4. Suspicious. Laboratory as of August 17, 2017 shows a white count of 11,000 hemoglobin 12.8 hematocrit 30.1 platelet count 390,000. Glucose 86. BUN is 15 and creatinine 0.8. Liver function tests were normal. Prolactin level was 3. ROS General General: Yes weight change; no appetite, fatigue, colon cancer, breast cancer or weakness HEENT HEENT: No difficulty swallowing, eye injury, eye surgery, swollen glands or hoarseness Endo Endocrine: No thyroid disease, diabetes mellitus, thyroid cancer, Hair loss, heat intolerance or cold intolerance Skin Skin: Yes changing moles; no rash Breast Breast: Yes left breast lump, abnormal mammogram and abnormal US; no right breast lump, nipple discharge, breast pain or breast enlargement Musc Musculoskeletal: Yes arthritis and rheumatoid arthritis; no back problems, gout or joint pain Cardio Cardiovascular: Yes murmur, heart disease and high blood pressure; no pacemaker, atrial fibrillation, heart attack, heart stent, palpitations, shortness of breat with exertion or chest pain Additional Details: MVR, TVR Psych Psychiatric: Yes anxiety; no depression or hearing voices Resp Respiratory: Yes shortness of breath, No sleep apnea, Yes cough, No COPD, No asthma, No emphysema, No wheezing Gastro Gastrointestinal: Yes abdominal pain, No nausea or vomiting, Yes diarrhea, No constipation, No blood in stool, No acid reflux, Yes hemorrhoids, No ulcers, No gallbladder problem, No black,tarry stools Lino Hematologic: No blood thinners, No blood disorders, No bleeding, No anemia, No blood clots Neuro Neurologic: No system reviewed and no additional complaints, except as docu, No as per HPI, No abnormal walking, No abnormal hearing, No abnormal movements, No abnormal speech, No behavioral changes, No burning sensations, No confusion, No seizure-like activity, No unsteadiness, No dizziness, No localized weakness, No frequent falls, No headache(s), No lack of coordination, No loss of vision, No memory loss, No numbness, No other visual disturbances, No radiating pain, No restless legs, No sensory deficit, No fainting, No tingling, No tremor(s), No weakness, No other Exam Const General: cooperative Nutritional Appearance: obese Orientation: alert, awake, oriented x3 HENMT Head: normal to inspection Eyes General: appearance normal, both eyes and all related structures Neck Neck: normal visual inspection Chest Breast Palpation: No nipple discharge Other: Increased anterior posterior diameter Right breast: Well-healed reduction mammoplasty incisions. Mild diffuse fibrous change. No focal mass. No nipple discharge. No axillary or clavicular adenopathy Left breast: Well-healed mastopathy reduction incisions. 6 o'clock position very superficially positioned just medial to the midline incision there is a palpable rubbery somewhat mobile mass. Very superficially placed. No distortion. No nipple discharge. No axillary or clavicular adenopathy Body habitus makes clinical examination of the axilla difficult Resp Auscultation: clear to auscultation bilaterally Cardio Rate: regular rate Rhythm: regular rhythm Heart Sounds: murmur GI Other: Notably overweight I cannot detect any internal organs. Nontender. Bowel sounds present Skin General: no rashes or lesions noted Neuro Cranial Nerves: CN's II-XI intact bilaterally Extrem General: no clubbing, cyanosis or edema Psych Affect: normal affect Office Procedures [id number] US guided Breast Biopsy Performed By: Procedure performed by: Joyce Details: Ultrasound-guided needle core biopsy left breast 6:00 Timeout and informed consent was obtained. 67-year-old female was taken to the procedure room. She was placed supine on the table. The left shoulder roll was placed. The left breast was prepped with Betadine. Ultrasound was performed identifying the superficially placed at 6:00 lesion within 1 cm of the areola. 1% lidocaine mixed 50-50 with 0.5% Marcaine was used as a local anesthetic. A total of 8 cc was used. A small stab incision was created. A 14-gauge Monopty needle was advanced to prefire depth. Pre-and 4 post fire films were obtained. 4 separate cores were obtained. A marking clip was left in position. The course was submitted in formalin. Pressure was held for hemostasis. Steri-Strips Telfa OpSite dressing applied. She was given activity wound care instructions. She has been invited to return to the office in 2 days time for pathology follow-up. Abdulaziz Guaman M.D., F.A.C.S. Procedure Time Out Time Out Informed consent given: Yes Consent signed: Yes Time out checklist: patient, procedure, site marked/identified, positioning of patient, supplies available, allergies confirmed, team agrees on procedure Time out staff in room: Yes Time out verified: Yes Time out date: 08/21/17 Time out time: 08:11 Assessment AND Plan Problems 1. Breast mass, left N63.20 Plan 67-year-old female with successfully biopsied left breast 6:00 palpable and image identified mass. She will return the office for pathology follow-up Additional medical findings of importance include cardiac valvular disease requiring antibiotic prophylaxis and arthritis on immunomodulating agent methotrexate. Pending pathology results she otherwise would appear to be a good candidate for breast conservation surgery. The sentinel lymph node technique may be compromised by her previous breast reduction surgery. I certainly appreciate the kind opportunity of assisting with her surgical care Abdulaziz Guaman M.D., F.A.C.S. Cc: Stefano Lowe NP Orders Orders: [id number] US guided Breast Biopsy Today R92.8 Coding Level of Care Code Exp prob focused,strt fwd Diagnoses Breast mass, left N63.20 08/21/17 0950<Electronically signed by Abdulaziz Guaman MD> Date Abdulaziz Guaman MD Assessment AND Plan Problems 1. Malignant neoplasm of lower-inner quadrant of left breast in female, estrogen receptor positive C50.312; Z17.0 Plan The patient returns today to discuss her ultrasound-guided needle core biopsy results of August 21, 2017. This was of a lower slightly inner left breast palpable lesion that was also visible upon imaging. She was felt to have a 9 mm density in this area. Her pathology shows invasive ductal carcinoma with mucinous features nuclear grade 1.; 0.6 cm in length. Estrogen receptor was greater than 95% strongly positive. Progesterone receptor was greater than 95% strong. HER-2/elsie was 0. We discussed treatment options. The patient is on methotrexate for her rheumatoid arthritis. I have asked her to hold this medication. I recommended the patient that we obtain a bilateral breast MRI. We have briefly conferred with Dr. Lau regarding breast reduction surgery and potential interference with radiotherapy. My current discussion suggests that there will be no interference. Subsequently suggesting that I would recommend a ultrasound guided wire localization left breast 6 to 7 o'clock position with subsequent left axillary blue dye sentinel lymph node biopsy and wire localized lumpectomy. She is aware of the technique, benefits, risks, alternatives. She has had an opportunity to ask and have questions answered. We will schedule and proceed at her discretion. She is aware that I will be out of town next week and we will schedule as soon as feasible upon my return. Cc: Ellis Loyola, FILIBERTO Guaman M.D., F.A.C.S. Orders Orders: Referrals: Coding Level of Care Code Off vis,est,level 3 Diagnoses Malignant neoplasm of lower-inner quadrant of left breast in female, estrogen receptor positive C50.312; Z17.0 Breast location: lower inner quadrant of breast Estrogen receptor status: positive Patient sex: female Laterality: left Time Spent (min) 25 08/23/17 7869 <Electronically signed by Abdulaziz Guaman MD> Date Abdulaziz Guaman MD Cosigner Signature: Date (if applicable) CC: Marisel Loyola SURGERY VISIT REPORT Observed: 08/21/2017 Status: F Source: [place] 9:50 AM [facility] [address] [place] [address] [address] [place] [address] OFFICE VISIT Date of Service: 08/21/17 MR#: [id number] Acct: [id number] Name: LILIANA MARTÍNEZ Rep #: [id number] : 1950 Provider: Abdulaziz Guaman MD Age/Sex: 67/F Location: [facility] Status: Signed Intake Vital Signs08/21/17 Height 5 ft 4 in 08/21/17 Weight: 220 lb 3 oz 08/21/17 Body Mass Index (BMI) 37.8 08/21/17 Blood Pressure 139/80 Intake Visit Reasons: LEFT BREAST MASS, U/S AND MAMMO @ [facility] Chief Complaint: left breast mass, pt has disk Tilt Tray Driver Required: No Is patient in pain?: No Allergies Penicillins Allergy (Mild, Verified 08/21/17 07:43) itching Medications betamethasone dipropionate 0.05 % topical ointment 1 applic TOPICAL QDAY 08/21/17 [History Confirmed 08/21/17] calcium carbonate 600 mg calcium (1,500 mg) tablet 600 mg PO QDAY tab 08/21/17 [History Confirmed 08/21/17] cetirizine 10 mg tablet 5 mg PO QDAY 08/21/17 [History Confirmed 08/21/17] cholecalciferol (vitamin D3) 2,000 unit capsule 2,000 unit PO QDAY 08/21/17 [History Confirmed 08/21/17] duloxetine 30 mg capsule,delayed release 30 mg PO QDAY 08/21/17 [History Confirmed 08/21/17] etodolac 500 mg tablet 500 mg PO QDAY tab 08/21/17 [History Confirmed 08/21/17] fluticasone 50 mcg/actuation nasal spray,suspension 1 spray INTRANASAL QDAY 08/21/17 [History Confirmed 08/21/17] folic acid 1 mg tablet 1 mg PO QDAY 08/21/17 [History Confirmed 08/21/17] glucosamine HCl 1,500 mg tablet 1,500 mg PO QDAY 08/21/17 [History Confirmed 08/21/17] lisinopril 40 mg tablet 40 mg PO QDAY 08/21/17 [History Confirmed 08/21/17] lovastatin 40 mg tablet 40 mg PO QDAY 08/21/17 [History Confirmed 08/21/17] methotrexate sodium 2.5 mg tablet 20 mg PO QDAY tab 08/21/17 [History Confirmed 08/21/17] multivitamin,pk-ftvn-jozjcawp tablet 1 tab PO QDAY 08/21/17 [History Confirmed 08/21/17] olopatadine 0.1 % eye drops 1 drp OPHTHALMIC BID 08/21/17 [History Confirmed 08/21/17] turmeric root extract 500 mg capsule 500 mg PO QDAY 08/21/17 [History Confirmed 08/21/17] vitamin E (dl, acetate) 400 unit capsule 400 unit PO QDAY 08/21/17 [History Confirmed 08/21/17] Is last menstrual period known: No Post menopausal: Yes Patient : No PFSH Medical History Breast mass, left (Acute) Heart murmur (Acute) Hyperlipidemia (Acute) Mitral regurgitation (Acute) Obesity (Acute) Psoriasis (Acute) Tricuspid regurgitation (Acute) HTN (hypertension) (Chronic) Surgical History History of kidney removal (Acute) S/P hysterectomy with oophorectomy (Acute) Status post breast reduction (Acute) Family History Mother Diabetes CAD (coronary artery disease) Hypertension CHF (congestive heart failure) Social History Smoking Status: Never smoker HPI HPI HPI: LILIANA MARTÍNEZ, is a 67 F who presents to the office today for surgical consultation regarding a palpable 6:00 left breast mass. The patient is referred by her primary care practitioner Ellis Loyola [facility]. 5-year-old female. A2. Menarche at age 13. First child born when she was 16. No previous breast biopsies. Not on estrogen replacement. Family history is negative for breast cancer. She has had a remote breast reduction surgery. She has also had a remote left nephrectomy for chronic infection and atrophy. She is on methotrexate for arthritis and has mitral valve prolapse which require antibiotic prophylaxis. She was able to detect on her own a left breast 6:00 mass. There is been no nipple discharge or drainage. This area is not tender. She subsequently had at [facility] bilateral mammography that was performed on August 17, 2017. Both breasts has scattered fibroglandular tissue. There is a 9 mm irregular density left breast 7 o'clock position superficially placed. BI-RADS Category 0. Subsequently a left breast ultrasound was obtained. This demonstrated a 1 cm lobulated lesion left breast 6:00 anterior position. BI-RADS Category 4. Suspicious. Laboratory as of August 17, 2017 shows a white count of 11,000 hemoglobin 12.8 hematocrit 30.1 platelet count 390,000. Glucose 86. BUN is 15 and creatinine 0.8. Liver function tests were normal. Prolactin level was 3. ROS General General: Yes weight change; no appetite, fatigue, colon cancer, breast cancer or weakness HEENT HEENT: No difficulty swallowing, eye injury, eye surgery, swollen glands or hoarseness Endo Endocrine: No thyroid disease, diabetes mellitus, thyroid cancer, Hair loss, heat intolerance or cold intolerance Skin Skin: Yes changing moles; no rash Breast Breast: Yes left breast lump, abnormal mammogram and abnormal US; no right breast lump, nipple discharge, breast pain or breast enlargement Musc Musculoskeletal: Yes arthritis and rheumatoid arthritis; no back problems, gout or joint pain Cardio Cardiovascular: Yes murmur, heart disease and high blood pressure; no pacemaker, atrial fibrillation, heart attack, heart stent, palpitations, shortness of breat with exertion or chest pain Additional Details: MVR, TVR Psych Psychiatric: Yes anxiety; no depression or hearing voices Resp Respiratory: Yes shortness of breath, No sleep apnea, Yes cough, No COPD, No asthma, No emphysema, No wheezing Gastro Gastrointestinal: Yes abdominal pain, No nausea or vomiting, Yes diarrhea, No constipation, No blood in stool, No acid reflux, Yes hemorrhoids, No ulcers, No gallbladder problem, No black,tarry stools Lino Hematologic: No blood thinners, No blood disorders, No bleeding, No anemia, No blood clots Neuro Neurologic: No system reviewed and no additional complaints, except as docu, No as per HPI, No abnormal walking, No abnormal hearing, No abnormal movements, No abnormal speech, No behavioral changes, No burning sensations, No confusion, No seizure-like activity, No unsteadiness, No dizziness, No localized weakness, No frequent falls, No headache(s), No lack of coordination, No loss of vision, No memory loss, No numbness, No other visual disturbances, No radiating pain, No restless legs, No sensory deficit, No fainting, No tingling, No tremor(s), No weakness, No other Exam Const General: cooperative Nutritional Appearance: obese Orientation: alert, awake, oriented x3 HENMT Head: normal to inspection Eyes General: appearance normal, both eyes and all related structures Neck Neck: normal visual inspection Chest Breast Palpation: No nipple discharge Other: Increased anterior posterior diameter Right breast: Well-healed reduction mammoplasty incisions. Mild diffuse fibrous change. No focal mass. No nipple discharge. No axillary or clavicular adenopathy Left breast: Well-healed mastopathy reduction incisions. 6 o'clock position very superficially positioned just medial to the midline incision there is a palpable rubbery somewhat mobile mass. Very superficially placed. No distortion. No nipple discharge. No axillary or clavicular adenopathy Body habitus makes clinical examination of the axilla difficult Resp Auscultation: clear to auscultation bilaterally Cardio Rate: regular rate Rhythm: regular rhythm Heart Sounds: murmur GI Other: Notably overweight I cannot detect any internal organs. Nontender. Bowel sounds present Skin General: no rashes or lesions noted Neuro Cranial Nerves: CN's II-XI intact bilaterally Extrem General: no clubbing, cyanosis or edema Psych Affect: normal affect Office Procedures 06060 US guided Breast Biopsy Performed By: Procedure performed by: Joyce Details: Ultrasound-guided needle core biopsy left breast 6:00 Timeout and informed consent was obtained. 67-year-old female was taken to the procedure room. She was placed supine on the table. The left shoulder roll was placed. The left breast was prepped with Betadine. Ultrasound was performed identifying the superficially placed at 6:00 lesion within 1 cm of the areola. 1% lidocaine mixed 50-50 with 0.5% Marcaine was used as a local anesthetic. A total of 8 cc was used. A small stab incision was created. A 14-gauge Monopty needle was advanced to prefire depth. Pre-and 4 post fire films were obtained. 4 separate cores were obtained. A marking clip was left in position. The course was submitted in formalin. Pressure was held for hemostasis. Steri-Strips Telfa OpSite dressing applied. She was given activity wound care instructions. She has been invited to return to the office in 2 days time for pathology follow-up. Abdulaziz Guaman M.D., F.A.C.S. Procedure Time Out Time Out Informed consent given: Yes Consent signed: Yes Time out checklist: patient, procedure, site marked/identified, positioning of patient, supplies available, allergies confirmed, team agrees on procedure Time out staff in room: Yes Time out verified: Yes Time out date: 08/21/17 Time out time: 08:11 Assessment AND Plan Problems 1. Breast mass, left N63.20 Plan 67-year-old female with successfully biopsied left breast 6:00 palpable and image identified mass. She will return the office for pathology follow-up Additional medical findings of importance include cardiac valvular disease requiring antibiotic prophylaxis and arthritis on immunomodulating agent methotrexate. Pending pathology results she otherwise would appear to be a good candidate for breast conservation surgery. The sentinel lymph node technique may be compromised by her previous breast reduction surgery. I certainly appreciate the kind opportunity of assisting with her surgical care Abdulaziz Guaman M.D., F.A.C.S. Cc: Stefano Lowe NP BC Orders Orders: Coding Level of Care Code Exp prob focused,strt fwd Diagnoses Breast mass, left N63.20 08/21/17 0950 <Electronically signed by Abdulaziz Guaman MD> Date Abdulaziz Guaman MD Cosigner Signature: Date (if applicable) CC: Marisel Loyola BREAST BIOPSY Observed: 08/21/2017 Status: F Source: [place] ([facility] SITE) 8:40 AM [facility] REPOSITORY Patient: LILIANA MARTÍNEZ : 1950 (67/F) Acct Num: [id number] Phys: Marisel Loyola Unit Num: [id number] Loc: LABSPEC Specimen: [id number] Received: 08/21/17951 Spec Type: BREAST BX TISSUES TISSUES: Left breast, NOS ADDENDUM Addendum Number 1 An order for Oncotype testing was received from Dr. Isabel Diggs. This necessitated case review, block and slide selection by pathologist at [facility]. Breast Cancer Recurrence Score = 17 Results of the complete Oncotype testing (Webbynode report) are viewable in EMR under: Reports - Pathology - Lab Pathology Report, Scanned. Addendum Signed Elia Gómez 10/09/17 <signature on file> COMMENT Immunohistochemistry ([id number]) supports the above diagnosis. ER/ID/Opg5tlr studies are being performed on sections of tumor and the results from this study will be reported separately ([id number]). GROSS DESCRIPTION Received in fixative is one container labeled with the patient's name and designated left breast. The specimen consists of multiple elongated fragments of salinas-yellow fibroadipose tissue that in aggregate measure 2 x 0.5 x 0.1 cm. The entire specimen is submitted in one cassette. / DINO:ramin 08/21/17 TC:0 CPT: 63802 HEADER OPERATION: Ultrasound-guided needle core biopsy left breast PRE-OP DIAGNOSIS: Abnormal mammogram R92.8 TISSUE SUBMITTED: Left breast biopsy ISCHEMIC TIME: 1 minute FIXATION TIME: 11 hours MICROSCOPIC DESCRIPTION Slides are reviewed. MICROSCOPIC DIAGNOSIS Left breast, ultrasound-guided core biopsy: Invasive ductal carcinoma with mucinous features, nuclear grade 1 (0.6 cm in greatest length). See comment. SJ:ramin 08/22/17 Signed Elia Gómez 08/22/17 <signature on file> Performed By: #### PBRBX #### [facility] [address] [place], [address] IMMUNOHISTOCHEMISTRY Observed: 08/21/2017 Status: F Source: [place] 12:00 AM [facility] REPOSITORY Patient: LILIANA MARTÍNEZ : 1950 (67/F) Acct Num: [id number] Phys: Marisel Loyola Unit Num: [id number] Loc: LABSPEC Specimen: [id number] Received: 08/22/17 - 1032 Spec Type: IMMUNO TISSUES TISSUES: Left breast, NOS SPECIMEN INFORMATION: Tissue Source: Left breast biopsy Clinical Info: Abnormal mammogram Specimen Number: [id number] CPT code: 82053, 41315 x4, 78554 x3 METHODOLOGY: Deparaffinized sections of prefer/formalin-fixed tissue or PAP/DQ stained slides are incubated with monoclonal/polyclonal antibodies/oligonucleotide probes. Localization is made via biotin free immunoperoxidase method. Appropriate controls are performed and reacted as expected. Results on target cell population are indicated in the following table: RESULTS: ANTIBODY / CLONE RESULT E-Cad (ECH-6) positive CK8 (20tyjjG60) positive CK5-6 (D5 AND 1684) negative Ki-67 (30-9) positive, low P53 (DO-7) positive, rare cells, weak MORPHOMETRIC ANALYSIS ER (clone 6F11) >95%, strong ID (clone 16/1E2) >95%, strong Her-2Neu (clone CB11) 0 The prognostic test for HER2 is performed on formalin-fixed paraffin embedded tissue. A 3+ (positive) staining pattern is defined as intense, homogeneous, complete, circumferential membranous staining in >10% of contiguous tumor cells. A similar weak (2+) staining pattern is interpreted as equivocal. [facility] follow- up testing is recommended for all equivocal cases. Positivity/negativity for ER/ ID is reported if > or < 1% of the tumor cells are immuno- reactive, respectively. The ASCO/CAP criteria is used for scoring. Reference: Journal of Clinical Oncology, 2013; 31:2984-0007 AND 2010; 16:2784- 2795. Duration of fixation : 11 Hrs; Sample Adequate: Yes. These assays have not been validated on decalcified tissues. Results should be interpreted with caution given the likelihood of false negativity on decalcified specimens. These tests were developed and their performance characteristics determined by [facility]. They may not have been cleared or approved by the U.S. Food and Drug Administration. The FDA has determined that such clearance or approval is not necessary. INTERPRETATION: Left breast, ultrasound-guided needle core biopsy: Invasive ductal carcinoma with mucinous features, nuclear grade 1. Positive for estrogen receptors (favorable prognostic indicator). Positive for progesterone receptors (favorable prognostic indicator). Negative for overexpression of ERC9cff. SJ:ramin 08/22/17 PHYSICIAN AND INSTITUTION [address] [address] Signed Elia Gómez 08/22/17 <signature on file> Performed By: #### PIMM #### [facility] [address] [place] [address]. [place], [place], [address] CBC Collected: 08/17/2017 Status: F Source: [facility] 1:20 PM [facility] REPOSITORY TYPE CODE TESTS RESULT OUT OF REFERENCE UNITS RANGE LAB WBC(LOINC) 4.60-10.80 10 3/mcL High WBC 11.00 LAB RBCCT(LOINC 4.20-5.40 10 6/mcL ) Low RBC 4.19 LAB HGB(LOINC) 12.0-16.0 G/dL Hgb 12.8 LAB HCT(LOINC) 37.0-47.0 % Hct 38.1 LAB MCV(LOINC) 80.0-94.0 fL MCV 90.8 LAB MCH(LOINC) 27.0-31.2 pg MCH 30.5 LAB MCHC(LOINC) 33.0-37.0 G/dL MCHC 33.6 LAB RDW(LOINC) 11.5-14.5 % High RDW 14.8 LAB PLT(LOINC) 130-400 10 3/mcL Platelet 390 LAB MPV(LOINC) 7.4-10.4 fL MPV 7.6 Performed By: #### CBC, ADIFF, ANEU, CMP, GFR, TSH #### [address] [address] #### PROL #### [address] [address] .AUTO DIFF Collected: 08/17/2017 Status: F Source: [facility] 1:20 PM [facility] REPOSITORY TYPE CODE TESTS RESULT OUT OF REFERENCE UNITS RANGE LAB ELSIE(LOINC) 37.0-80.0 % Neutrophil % 56.2 LAB LYM(LOINC) 10.0-50.0 % Lymphocyte % 33.2 LAB MON(LOINC) 1.7-13.0 % Monocyte % 8.1 LAB EO(LOINC) 0.0-7.0 % Eosinophil % 2.0 LAB BAS(LOINC) 0.0-2.5 % Basophil % 0.5 LAB ABLYM(LOIN 0.77-3.85 10 3/mcL C) Lymphocyte, 3.70 Absolute LAB SARAH BETH(LOINC 0.15-1.00 10 3/mcL ) Monocyte, 0.90 Absolute LAB AEOS(LOINC 0.00-0.40 10 3/mcL ) Eosinophil, 0.20 Absolute LAB ABAS(LOINC 0.00-0.19 10 3/mcL ) Basophil, 0.10 Absolute Performed By: #### CBC, ADIFF, ANEU, CMP, GFR, TSH #### [address] [address] #### PROL #### [address] [address] .NEUABS Collected: 08/17/2017 Status: F Source: [facility] 1:20 PM [facility] REPOSITORY TYPE CODE TESTS RESULT OUT OF REFERENCE UNITS RANGE LAB ANEU(LOINC) 2.85-6.16 10 3/mcL High Neutrophil, 6.20 Absolute Performed By: #### CBC, ADIFF, ANEU, CMP, GFR, TSH #### [place] [address] [place], [place] [address] #### PROL #### [address] [address] CMP Collected: 08/17/2017 Status: F Source: [facility] 1:20 PM [facility] REPOSITORY TYPE CODE TESTS RESULT OUT OF REFERENCE UNITS RANGE LAB 1547-9 80-115 mg/dL GLUCOSE 86 LAB NA(LOINC) 136-146 mEq/L Sodium Level 137 LAB K(LOINC) 3.5-5.1 mEq/L Potassium Level 5.0 LAB CL(LOINC) 98-107 mEq/L Chloride 99 LAB CO2(LOINC) 23-31 mEq/L CO2 31 LAB EBAL(LOINC mEq/L ) Electrolyte Balance 7.0 LAB BUN(LOINC) 7.0-18.0 mg/dL BUN 15.6 LAB CRE(LOINC) 0.6-1.2 mg/dL Creatinine Lvl (s) 0.8 LAB BC(LOINC) 7-27 ratio BUN/Creatinine 20 Ratio LAB CA(LOINC) 8.4-10.2 mg/dL Calcium Lvl 9.9 LAB PROT(LOINC 6.0-8.3 G/dL ) Total Protein 7.2 LAB ALB(LOINC) 3.4-4.8 G/dL Albumin Level 4.4 LAB GLB(LOINC) G/dL Globulin 2.8 LAB AG(LOINC) 1.1-2.5 ratio A/G Ratio 1.6 LAB BILT(LOINC 0.2-1.0 mg/dL ) Bili Total 0.3 LAB AP(LOINC) 40-135 IU/L Alk Phos 73 LAB AST(LOINC) 10-40 IU/L AST/SGOT 22 LAB ALT(LOINC) 10-35 IU/L ALT/SGPT 21 Performed By: #### CBC, ADIFF, ANEU, CMP, GFR, TSH #### [address] [place], [place] [address] #### PROL #### [address] [address] .GFR Collected: 08/17/2017 Status: F Source: [facility] 1:20 PM [facility] REPOSITORY TYPE CODE TESTS RESULT OUT OF REFERENCE UNITS RANGE LAB GFRAA(LOINC ml/min/1.73 ) sqm GFR 91 Bulgarian Result Comment: GFR Population mean for , Non- Americans Ages 20-29 = 116 mL/min/1.73 sq.m. Ages 30-39 = 107 mL/min/1.73 sq.m. Ages 40-49 = 99 mL/min/1.73 sq.m. Ages 50-59 = 93 mL/min/1.73 sq.m. Ages 60-69 = 85 mL/min/1.73 sq.m. Ages 70+ = 75 mL/min/1.73 sq.m. Chronic Kidney Disease: Less than 60 mL/min/1.73 square meters End Stage Renal Disease: Less than 15 mL/min/1.73 square meters LAB GFRNO(LOINC) ml/min/1.73sqm GFR Non- >60 Result Comment: GFR Population mean for , Non- Americans Ages 20-29 = 116 mL/min/1.73 sq.m. Ages 30-39 = 107 mL/min/1.73 sq.m. Ages 40-49 = 99 mL/min/1.73 sq.m. Ages 50-59 = 93 mL/min/1.73 sq.m. Ages 60-69 = 85 mL/min/1.73 sq.m. Ages 70+ = 75 mL/min/1.73 sq.m. Chronic Kidney Disease: Less than 60 mL/min/1.73 square meters End Stage Renal Disease: Less than 15 mL/min/1.73 square meters Performed By: #### CBC, ADIFF, ANEU, CMP, GFR, TSH #### [place] [address] [address] #### PROL #### [address] [address] TSH Collected: 08/17/2017 Status: F Source: [facility] 1:20 PM [facility] REPOSITORY TYPE CODE TESTS RESULT OUT OF RANGE REFERENCE UNITS LAB TSH(LOINC) 0.27-4.20 mcIU/mL High TSH 4.80 Result Comment: Above normal(expected)range Performed By: #### CBC, ADIFF, ANEU, CMP, GFR, TSH #### [place] [address] #### PROL #### [address] [address] PROL Collected: 08/17/2017 Status: F Source: [facility] 1:20 PM [facility] REPOSITORY TYPE CODE TESTS RESULT OUT OF REFERENCE UNITS RANGE LAB PROL(LOINC 2.0-30.0 ng/mL ) Prolactin 3.0 Performed By: #### CBC, ADIFF, ANEU, CMP, GFR, TSH #### [place] [address] #### PROL #### [address] [address] US BREAST LEFT Observed: 08/17/2017 Status: F Source: [facility] 1:19 PM [facility] REPOSITORY ORIGINAL FROM: [place] [address] PROCEDURE FOR: LILIANA MARTÍNEZ [address] [place] [address] Home: PID#: [id number] Exam#: [id number] : 1950 Age: 67 TO: MARISLE LOYOLA [place] [address] #[id number] ULTRASOUND OF LEFT BREAST AND LEFT AXILLA: 08/17/2017 CLINICAL: PALPABLE LUMP LEFT BREAST. No prior exams were available for comparison. Color flow and real-time ultrasound of the left breast and axilla were performed. There is a 1 cm lobulated lesion in the left breast at 6 o'clock anterior depth. This lobulated lesion is hypoechoic. This correlates as palpated and with mammography findings. No masses or enlarged lymph nodes were seen in the axilla. IMPRESSION: SUSPICIOUS OF MALIGNANCY - FOLLOW-UP RECOMMENDED The 1 cm lobulated lesion in the left breast appears suspicious of malignancy. An ultrasound guided biopsy is recommended. I have personally reviewed the images of the examination and agree with the findings and interpretation. AIRAM petersg,yz/:08/17/2017 15:15:03 Director Prison: EFFIE GAO RT(R), [facility] letter sent: Biopsy Recommended BI-RADS 4&5 Ultrasound BI-RADS: 4 Suspicious abnormality MA MAMMOGRAM Observed: 08/17/2017 Status: F Source: [facility] DIAGNOSTIC BILATERAL 12:55 PM [facility] REPOSITORY W/CAROLINE ORIGINAL FROM: [place] [address] PROCEDURE FOR: LILIANA MARTÍNEZ [address] [place] [address] Home: PID#: [id number] Exam#: [id number] : 1950 Age: 67 TO: MARISEL LOYOLA [place] [address] #[id number] DIGITAL DIAGNOSTIC MAMMOGRAM 3D/2D WITH CAD WITH MEDIOLATERAL MEDIOLATERAL OBLIQUE CRANIOCAUDAL: 08/17/2017 CLINICAL: PALPABLE LUMP LEFT BREAST. Comparison is made to exams dated: 05/02/2016 mammogram and 04/30/2015 mammogram - [facility]. There are scattered fibroglandular elements in both breasts. Current study was also evaluated with a Computer Aided Detection (CAD) system. There is a 9 mm irregular density in the left breast at 7 o'clock anterior depth. This is seen in additional views. This correlates as palpated. No other significant masses, calcifications, or other findings are seen in either breast. IMPRESSION: INCOMPLETE: NEEDS ADDITIONAL IMAGING EVALUATION The 9 mm irregular density in the left breast appears indeterminate. An ultrasound examination will be performed today and reported separately. I have personally reviewed the images of the examination and agree with the findings and interpretation. AIRAM petersg,yz/:08/17/2017 15:13:09 Director Prison: LUIZA DENTON (R)(M), [facility] letter sent: Abnormal-Needs W/U BI-RADS 0 Mammogram BI-RADS: 0 Indeterminate CBC W/DIFF, AUTOMATED Collected: 05/30/2017 Status: F Source: [place] 10:19 AM [facility] REPOSITORY TYPE CODE TESTS RESULT OUT OF RANGE REFERENCE UNITS LAB L100.1000 4.4-11.0 K/mm3 Normal WBC 7.4 LAB L100.1200 4.2-5.4 M/mm3 Normal RBC 4.34 LAB L100.1300 12.0-15.0 g/dl Normal HGB 13.0 LAB L100.1400 37-47 % Normal HCT 39.9 LAB L100.1500 81-99 fL Normal MCV 91.9 LAB L100.1600 27.0-32.0 pg Normal MCH 30.0 LAB L100.1700 32-36 g/gl Normal MCHC 32.6 LAB L100.1810 11.6-14.6 % Normal RDW CV 14.5 LAB L100.1820 35.1-43.9 fl High RDW SD 47.2 LAB L100.1900 150-450 K/mm3 Normal PLT 363 LAB L100.2000 6.2-12.0 fl Normal MPV 9.8 LAB L100.2100 47-70 % Normal NEUT% 58.1 LAB L100.2200 19-41 % Normal LY% 32.5 LAB L100.2300 0-10 % Normal MONO% 6.4 LAB L100.2400 0-5 % Normal EO% 2.3 LAB L100.2500 0-1 % Normal BASO% 0.4 LAB L100.2550 0.0-0.9 % Normal IM GRAN % 0.300 Result Comment: IG% - Immature Granulocytes (promyelocytes, myelocytes and metamyelocytes) > 1% indicates that a LEFT SHIFT is Present. LAB L100.2620 2.0-7.7 X10 3/uL Normal Absolute Neut 4.3 LAB L100.2720 0.83-4.51 X10 3/ul Normal Absolute Lymph 2.40 Performed By: #### L100.0100, L101.9900 #### [facility] [address] [place], [address] ERYTHROCYTE SED RATE Collected: 05/30/2017 Status: F Source: [place] 10:19 AM [facility] REPOSITORY TYPE CODE TESTS RESULT OUT OF RANGE REFERENCE UNITS LAB L102.0000 0-30 mm/hr Normal SED RATE 25 Performed By: #### L100.0100, L101.9900 #### [facility] [address] [place], [address] COMPREHENSIVE METABOLIC Collected: 05/30/2017 Status: F [facility] AM [facility] REPOSITORY Order Comment: CRP ADDED TYPE CODE TESTS RESULT OUT OF RANGE REFERENCE UNITS LAB L501.0100 74-106 mg/dL Normal GLU 84 Result Comment: Please note revised GLUCOSE reference range effective 2017. LAB L501.1000 7-18 mg/dL High BUN 19 LAB L501.1100 0.55-1.02 mg/dL Normal CREAT,SERUM 0.74 Result Comment: The validity of the calculated GFR AND GFRAA in patients over 70 years has not been determined. Clinical correlation is essential. LAB L501.1110 >60 mL/min Normal EST GFR 83 Result Comment: Non- GFR Calc LAB L501.1115 >60 mL/min Normal EST GFR - AA 100 Result Comment: GFR Calc LAB L501.1300 10-20 RATIO High BUN/CRE 25.7 LAB L501.1500 6.4-8.2 g/dL T Normal PROT 7.8 LAB L501.1800 3.2-5.0 g/dL Normal ALB 3.8 LAB L501.1950 2.2-4.2 g/dL Normal GLOB 4.0 LAB L501.2000 0.9-2.4 RATIO Normal A/G 1.0 LAB L501.2200 8.5-10.1 mg/dL CA Normal 9.2 LAB L501.4100 15-37 U/L Normal AST 27 LAB L501.4305 45-117 U/L Normal ALK P 86 LAB L501.4405 13-56 U/L Normal ALT 36 Result Comment: Please note revised ALT reference range effective 2017. LAB L501.4600 0.20-1.00 mg/dL Normal T BILI 0.50 LAB L501.5300 136-145 mmol/L Normal NA 138 LAB L501.5600 3.5-5.1 mmol/L Normal K 4.0 LAB L501.5900 98-107 mmol/L Normal CL 102 LAB L501.6100 21.0-32.0 mmol/L Normal CO2 29.0 LAB L501.6200 5-15 Normal GAP 7 Performed By: #### L500.4050, L501.6710, L505.7010 #### [facility] [address] [place], [place], [address] CRP Collected: 05/30/2017 Status: F Source: [place] 10:19 AM [facility] REPOSITORY Order Comment: CRP ADDED TYPE CODE TESTS RESULT OUT OF RANGE REFERENCE UNITS LAB L501.6710 0.0-3.0 mg/L High 23.60 C-REACTIVE PROT Result Comment: C-Reactive Protein (CRP) provides useful information for the diagnosis, therapy and monitoring of inflammatory processes and associated diseases. For the evaluation of Relative Risk for Cardiovascular Disease, a High Sensitivity CRP (HSCRP) should be ordered. Performed By: #### L500.4050, L501.6710, L505.7010 #### [facility] [facility] [place], [place], [id number] RHEUMATOID FACTOR Collected: 05/30/2017 Status: F Source: [place] 10:19 AM [facility] REPOSITORY Order Comment: CRP ADDED TYPE CODE TESTS RESULT OUT OF RANGE REFERENCE UNITS LAB L505.7010 <15 IU/mL Normal RHEUMATOID FAC < 10.0 Performed By: #### L500.4050, L501.6710, L505.7010 #### [facility] [address] [place], [place], [address] ANTINUCLEAR ANTIBODIES Collected: 05/30/2017 Status: F Source: [facility] 10:19 AM [facility] REPOSITORY TYPE CODE TESTS RESULT OUT OF REFERENCE UNITS RANGE LAB L3100.5475 Negative High Positive NABOR-DIRECT Result Comment: Performed at: - [facility] [id number] Catering Director: Sy Nava PhD, Phone: [phone] Performed By: #### L3100.5475, L3100.9100 #### [facility] (refer to report for specific site) refer to report for address and phone number SJOGREN'S ANTIBODIES Collected: 05/30/2017 Status: F Source: [place] A/B 10:19 AM [facility] REPOSITORY TYPE CODE TESTS RESULT OUT OF RANGE REFERENCE UNITS LAB L3100.9200 0.0-0.9 AI Normal Anti-SS-A < 0.2 LAB L3100.9300 0.0-0.9 AI Normal Anti-SS-B < 0.2 Performed By: #### L3100.5475, L3100.9100 #### [facility] (refer to report for specific site) refer to report for address and phone number HEPATITIS B SURFACE Collected: 05/30/2017 Status: F Source: [place] AG 10:19 AM [facility] REPOSITORY TYPE CODE TESTS RESULT OUT OF RANGE REFERENCE UNITS LAB L3100.0400 Negative Normal HB Negative SURF AG Result Comment: Performed at: - [facility] [id number] Catering Director: Sy Nava PhD, Phone: [phone] Performed at: 2 - [facility] [id number] Catering Director: Ronal Alston PhD, Phone: [phone] Performed at: - [facility] [id number] Catering Director: Jose Metz MD, Phone: [phone] Performed By: #### L3100.0390, L3100.0528, L3100.0625, L3410.1400, L4600.0100 #### [facility] (refer to report for specific site) refer to report for address and phone number HEP B SURFACE Collected: 05/30/2017 Status: F Source: [place] ANTIBODIES 10:19 AM [facility] REPOSITORY TYPE CODE TESTS RESULT OUT OF RANGE REFERENCE UNITS LAB L3100.0528 . Normal Hep B Non Reactive Sandra AB Result Comment: Non Reactive: Inconsistent with immunity, less than 10 mIU/mL Reactive: Consistent with immunity, greater than 9.9 mIU/mL Performed By: #### L3100.0390, L3100.0528, L3100.0625, L3410.1400, L4600.0100 #### [facility] (refer to report for specific site) refer to report for address and phone number HEPATITIS C ANTIBODIES Collected: 05/30/2017 Status: F Source: [place] 10:19 AM [facility] REPOSITORY TYPE CODE TESTS RESULT OUT OF RANGE REFERENCE UNITS LAB L3100.0650 0.0-0.9 s/co ratio Normal HEP C AB <0.1 Result Comment: Negative: < 0.8 Indeterminate: 0.8 - 0.9 Positive: > 0.9 The CDC recommends that a positive HCV antibody result be followed up with a HCV Nucleic Acid Amplification test (062163). Performed By: #### L3100.0390, L3100.0528, L3100.0625, L3410.1400, L4600.0100 #### [facility] (refer to report for specific site) refer to report for address and phone number HLA B27 Collected: 05/30/2017 Status: F Source: [place] 10:19 AM [facility] REPOSITORY TYPE CODE TESTS RESULT OUT OF RANGE REFERENCE UNITS LAB L3410.1500 . Normal HLA Negative B27 Result Comment: HLA-B*27 Negative B27 allele interpretation for all loci based on IMGT/HLA database version 3.27 This test was developed and its performance characteristics determined by [facility]. It has not been cleared or approved by the Food and Drug Administration. [facility] CLIA ID Number [id number] This test was performed using PCR (Polymerase Chain Reaction)/SSOP (Sequence Specific Oligonucleotide Probes) technique. SBT (Sequence Based Typing) and/or SSP (Sequence Specific Primers) may be used as supplemental methods when necessary. Please contact [facility] Customer Service at if you have any questions. Director of [facility] Laboratory Dr Ronal Alston, PhD Performed By: #### L3100.0390, L3100.0528, L3100.0625, L3410.1400, L4600.0100 #### [facility] (refer to report for specific site) refer to report for address and phone number CCP IGG ANTIBODIES Collected: 05/30/2017 Status: F Source: [place] 10:19 AM [facility] REPOSITORY TYPE CODE TESTS RESULT OUT OF REFERENCE UNITS RANGE LAB L4600.0100 0-19 units High ANTI-CCP > 250 [id number] Result Comment: Negative <20 Weak positive 20 - 39 Moderate positive 40 - 59 Strong positive >59 Performed By: #### L3100.0390, L3100.0528, L3100.0625, L3410.1400, L4600.0100 #### [facility] (refer to report for specific site) refer to report for address and phone number PELVIS 1 OR 2 VIEWS Observed: 05/30/2017 Status: F Source: MICHELLE 10:16 AM [facility] REPOSITORY [facility] Imaging Services [address] [place] [address] Pelvis 1 or 2 Views MR#: [id number] Acct: [id number] Name: LILIANA MARTÍNEZ Rep #: [id number] : 1950 F 67 From: Josiah Roldan DO PCP: Marisel Loyola Status: REG CLI Study: Pelvis 1 or 2 Views Date of Exam: 05/30/17 Exam# [id number] Ordering Dr: Sadia Woo MD STUDY: X-RAY - PELVIS REASON FOR EXAM: Female, 67 years old. Hip and pelvic pain TECHNIQUE: One view of the pelvis was obtained. COMPARISON: None. FINDINGS: There is a non-specific bowel gas pattern. Normal visualized soft tissue structures. There is narrowing with cortical sclerosis and osteophyte formation of the sacroiliac joint consistent with degenerative osteoarthritic changes. Normal visualized bilateral superior and inferior pubic rami. Normal pubic symphysis. Normal ischial tuberosities. Normal visualized right femoral head. Normal right acetabulum. Normal right hip joint. Normal visualized left femoral head. Normal left acetabulum. Normal left hip joint. 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 Otherwise, within normal limits Electronically Signed: Josiah Roldan DO at 8:21 EST Tel , Service support , CC: Sadia Woo MD; Marisel Loyola Lcpc: Signed ALLERGIES ALLERGIES DATE TYPE / CODE NAME / CODE REACTION SEVERITY SOURCE 04/18/2018 Drug Penicillins/F001 Itching [place] [facility] Allergy/416 495883(RXNORM) Hospital 483899(SNOM Repository ED CT) 04/18/2018 Drug methylene Other [place] [facility] Allergy/416 blue/[id number]( Hospital 722454(SNOM RXNORM) Repository ED CT) ENCOUNTERS ENCOUNTERS ADMIT/DISCHARGE ACCOUNT NUMBER ADMITTING ENCOUNTER LOCATION SOURCE CLASS 04/18/2018 [id number] Ambulatory BMSBuilding: [place] BMS.CF.[facility] Repository 04/18/2018 [id number] Ambulatory [facility] ding:OMD Repository 04/16/2018 [id number] Ambulatory [facility] ding:MTLAB Repository 04/12/2018/04/12/20 [id number] Ambulatory BBuilding: [address] Repository 04/01/2018/04/01/20 [id number] Ambulatory [address] ding:MTLAB Repository 01/17/2018 [id number] Ambulatory BMSBuilding: [place] BMS.CF.[facility] Repository 11/15/2017/11/16/19 [id number] Ambulatory BMSBuilding: [place] 18 BMS.[facility] Repository 10/23/2017 [id number] Ambulatory BMSBuilding: [place] BMS.CF.[facility] Repository 10/22/2017 [id number] Ambulatory BMSBuilding: [place] BMS.[facility] Repository 10/18/2017 [id number] Ambulatory BMSBuilding: [place] BMS.CF.[facility] Repository 10/16/2017/10/17/19 [id number] Ambulatory BMSBuilding: [place] 18 BMS.[facility] Repository 10/03/2017/10/04/19 [id number] Ambulatory BMSBuilding: [place] 18 BMS.[facility] Repository 10/01/2017 [id number] Ambulatory BMSBuilding: [place] BMS.CF.[facility] Repository 09/26/2017/09/27/19 [id number] Ambulatory BMSBuilding: [place] 18 BMS.[facility] Repository 09/17/2017 [id number] Ambulatory BMSBuilding: [place] BMS.[facility] Repository 09/17/2017 [id number] Ambulatory [facility] ding:MTLAB Repository 09/06/2017 [id number] Ambulatory BMSBuilding: [place] BMS.CF.[facility] Repository 09/06/2017/09/07/19 [id number] Ambulatory [place] Michelle [address] [place] [address] ding:SDCRoom Repository : AC07 08/31/2017 [id number] Ambulatory BMSBuilding: [place] [facility] Repository 08/30/2017 [id number] Ambulatory [facility] ding:MRI Repository 08/23/2017/08/24/19 [id number] Ambulatory BMSBuilding: [place] 18 BMS.[facility] Repository 08/21/2017 [id number] Ambulatory [facility] ding:LABSPEC Repository 08/21/2017/08/22/19 [id number] Ambulatory BMSBuilding: [place] 18 BMS.[facility] Repository 08/17/2017/08/18/19 [id number] Ambulatory [address] ding:[facility] Repository 05/30/2017 [id number] Ambulatory [facility] ding:MTLAB Repository PAYERS PAYERS ENCOUNTER GUARANTOR PAYER SUBSCRIBER SOURCE 04/18/2018 JAKE Fernandez Primary LILIANA A [place] [address] Insurance:HUMANA TARLETONDOB: [address], MEDICARE PPOPolicy [id number] [facility] Medical Center [address]Alh: Number: Repository [id number] (HP) Date:[id number] [address]RH: 04/18/2018 Secondary NOT GIVENUNK [place] Insurance:SELF PAY [facility] Number: Effective Repository Date:2018-04-18 04/18/2018 JAKE Fernandez Primary LILIANA A [place] [address] Insurance:HUMANA TARLETONDOB: [address], MEDICARE PPOPolicy [id number] [place] [id number]: Number: Repository [id number] (HP) Date:6438-32-93AZ [address] [place] [address]TT: 04/18/2018 Secondary NOT GIVENUNK [place] Insurance:SELF PAY [facility] Number: Effective Repository Date:2017-09-26 04/16/2018 JAKE Fernandez Primary LILIANA A [place] [address] Insurance:HUMANA TARLETONDOB: [place], MEDICARE PPOPolicy [id number] [place] [address]Xwf: Number: Repository [id number] (HP) Date:1692-31-38HL [address] [address]DD: 04/16/2018 Secondary NOT GIVENUNK [place] Insurance:SELF PAY [facility] Number: Effective Repository Date:2018-04-15 04/12/2018 LILIANA A Primary [facility] TARLETONDOB: Insurance:HUMANA GOLD TARLETONDOB: [facility] [id number] BOX CHOICE MEDICAREPolicy [id number] Repository [address] [place] [address], Number: [address] [address]Nsz: [id number] [place], [place] Date:2018-01-17 [address]Ahu: (330) () [id number] [phone] Name:[address] Box (HP)Tel: [phone], [place] [phone] () [address]PP: 04/01/2018 JAKE Fernandez Primary LILIANA A [place] [address] Insurance:HUMANA TARLETONDOB: [address], MEDICARE PPOPolicy [id number] Alamos Medical Center [address]Zim: Number: Repository [id number] (HP) Date:6046-56-23YS [address] [address]RO: 04/01/2018 Secondary NOT GIVENUNK [place] Insurance:SELF PAY [facility] Number: Effective Repository Date:2018-04-01 01/17/2018 JAKE Fernandez Primary LILIANA A [place] [address] Insurance:HUMANA TARLETONDOB: [place], MEDICARE PPOPolicy [id number] Alamos Medical Center [address]Gqg: Number: Repository [id number] (HP) Date:7717-54-04LX [address] [address]QA: 01/17/2018 Secondary NOT GIVENUNK [place] Insurance:SELF PAY [facility] Number: Effective Repository Date:2018-01-17 11/15/2017 Jake Fernandez Primary LILIANA A [place] [address] Insurance:HUMANA TARLETONDOB: [place], MEDICARE PPOPolicy [id number] Alamos Medical Center [address]Svb: Number: Repository [id number] (HP) Date:6651-25-18GM [address] [address]PQ: 11/15/2017 Secondary NOT GIVENUNK [place] Insurance:SELF PAY [facility] Number: Effective Repository Date:2017-11-15 10/23/2017 Jake Fernandez Primary LILIANA A [place] [address] Insurance:HUMANA TARLETONDOB: [place], MEDICARE PPOPolicy [id number] [place] [address]Yto: Number: Repository [id number] (HP) Date:5897-34-06VM [address] [address]CD: 10/23/2017 Secondary NOT GIVENUNK [place] Insurance:SELF PAY [facility] Number: Effective Repository Date:2017-10-23 10/22/2017 Jake Fernandez Primary LILIANA A [place] [address] Insurance:HUMANA TARLETONDOB: [place], MEDICARE PPOPolicy [id number] [facility] [place] [id number]: Number: Repository [id number] (HP) Date:3175-66-06LW [address] [place] [address]NH: 10/22/2017 Secondary NOT GIVENUNK [place] Insurance:SELF PAY [facility] Number: Effective Repository Date:2017-10-22 10/18/2017 Jake Fernandez Primary LILIANA A [place] [address] Insurance:HUMANA TARLETONDOB: [place], MEDICARE PPOPolicy [id number] [place] [address]Xwn: Number: Repository [id number] (HP) Date:2028-46-16[place] [address]WP: 10/18/2017 Secondary NOT GIVENUNK [place] Insurance:SELF PAY [facility] Number: Effective Repository Date:2017-10-18 10/16/2017 Jake Fernandez Primary LILIANA A [place] [address] Insurance:HUMANA TARLETONDOB: [place], MEDICARE PPOPolicy [id number] [facility] [place] [id number]: Number: Repository [id number] (HP) Date:4154-33-80OC [address]46[address]WP: 10/16/2017 Secondary NOT GIVENUNK [place] Insurance:SELF PAY [facility] Number: Effective Repository Date:2017-10-16 10/03/2017 Jake Fernandez Primary LILIANA A [place] [address] Insurance:HUMANA TARLETONDOB: [place], MEDICARE PPOPolicy [id number] [facility] [place] [address]Ibl: Number: Repository [id number] (HP) Date:2244-81-34XZ [address] [place] [address]JO: 10/03/2017 Secondary NOT GIVENUNK [place] Insurance:SELF PAY [facility] Number: Effective Repository Date:2017-10-03 10/01/2017 Jake Fernandez Primary LILIANA A [place] [address] Insurance:HUMANA TARLETONDOB: [place], MEDICARE PPOPolicy [id number] [place] [id number]: Number: Repository [id number] (HP) Date:3835-18-16SJ [address] [address]FL: 10/01/2017 Secondary NOT GIVENUNK [place] Insurance:SELF PAY [facility] Number: Effective Repository Date:2017-10-01 09/26/2017 Jake Fernandez Primary LILIANA A [place] [address] Insurance:HUMANA TARLETONDOB: [place], MEDICARE PPOPolicy [id number] Alamos Medical Center [address]Ryr: Number: Repository [id number] (HP) Date:6575-11-15KV [address] [address]YZ: 09/26/2017 Secondary NOT GIVENUNK [place] Insurance:SELF PAY [facility] Number: Effective Repository Date:2017-09-25 09/17/2017 Jake Fernandez Primary LILIANA A [place] [address] Insurance:HUMANA TARLETONDOB: [place] [address], MEDICARE PPOPolicy [id number] [place] [address]Adr: Number: Repository [id number] (HP) Date:4664-06-24GD [address] [address]RE: 09/17/2017 Secondary NOT GIVENUNK [place] Insurance:SELF PAY [facility] Number: Effective Repository Date:2017-09-11 09/17/2017 Jake Fernandez Primary LILIANA A [place] [address] Insurance:HUMANA TARLETONDOB: [place] [address], MEDICARE PPOPolicy [id number] [place] [id number]: Number: Repository [id number] (HP) Date:9202-33-49YX [address]46[address]WP: 09/17/2017 Secondary NOT GIVENUNK [place] Insurance:SELF PAY [facility] Number: Effective Repository Date:2017-09-17 09/06/2017 Jake Fernandez Primary LILIANA A [place] [address] Insurance:HUMANA TARLETONDOB: [place] [address], MEDICARE PPOPolicy [id number] Alamos Medical Center [address]Kri: Number: Repository [id number] (HP) Date:3822-26-96AB [address]46[address]WP: 09/06/2017 Secondary NOT GIVENUNK [place] Insurance:SELF PAY [facility] Number: Effective Repository Date:2017-09-06 09/06/2017 Jake Fernandez Primary LILIANA A [place] [address] Insurance:HUMANA TARLETONDOB: [place] [address], MEDICARE PPOPolicy [id number] Alamos Medical Center [address]Yrn: Number: Repository [id number] (HP) Date:8987-40-26WD [address]46[address]WP: 09/06/2017 Secondary NOT GIVENUNK [place] Insurance:SELF PAY [facility] Number: Effective Repository Date:2017-08-23 08/31/2017 Jake Fernandez Primary LILIANA A [place] [address] Insurance:HUMANA TARLETONDOB: [place] [address], MEDICARE PPOPolicy [id number] [place] [address]Lww: Number: Repository [id number] (HP) Date:5745-45-49PJ [address]46[address]WP: 08/31/2017 Secondary NOT GIVENUNK [place] Insurance:SELF PAY [facility] Number: Effective Repository Date:2017-08-31 08/30/2017 Jkae Fernandez Primary LILIANA A [place] [address] Insurance:HUMANA TARLETONDOB: [place] [address], MEDICARE PPOPolicy [id number] Alamos Medical Center [address]Zlb: Number: Repository [id number] (HP) Date:0405-57-77OV [address] [address]UY: 08/30/2017 Secondary NOT GIVENUNK [place] Insurance:SELF PAY [facility] Number: Effective Repository Date:2017-08-23 08/23/2017 Jake Fernandez Primary LILIANA A [place] [address] Insurance:HUMANA TARLETONDOB: [place] [address], MEDICARE PPOPolicy [id number] Alamos Medical Center [address]Mrz: Number: Repository [id number] (HP) Date:9827-51-85XR [address] [address]OD: 08/23/2017 Secondary NOT GIVENUNK [place] Insurance:SELF PAY [facility] Number: Effective Repository Date:2017-08-23 08/21/2017 Jake Fernandez Primary LILIANA A [place] [address] Insurance:HUMANA TARLETONDOB: [place] [address], MEDICARE PPOPolicy [id number] [place] [id number]: Number: Repository [id number] (HP) Date:2709-84-16CZ [address] [address]PI: 08/21/2017 Secondary NOT GIVENUNK [place] Insurance:SELF PAY [facility] Number: Effective Repository Date:2017-08-21 08/21/2017 Jake Fernandez Primary LILIANA A [place] [address] Insurance:HUMANA TARLETONDOB: [address], MEDICARE PPOPolicy [id number] [place] [id number]: Number: Repository [id number] (HP) Date:0606-78-37GI [address] [place] [address]GT: 08/21/2017 Secondary NOT GIVENUNK [place] Insurance:SELF PAY [facility] Number: Effective Repository Date:2017-08-21 08/17/2017 LILIANA A Primary LILIANA A [facility] TARLETONDOB: Insurance:HUMANA GOLD TARLETONDOB: [facility] [id number] BOX CHOICE MEDICAREPolicy [id number] Repository [facility] N[facility]K, Number: [address] [place] [address]Muy: [id number] [place], [place] Date:2017-08-1713193Zug: (330) (HP)Tel: ([phone]) [phone] [phone] (WP) Name:[address] (HP)Tel: [address] [place] [address] [phone] () [address]ZP: 05/30/2017 Jake Fernandez Primary LILIANA A [place] [address] Insurance:HUMANA TARLETONDOB: [place] [address], MEDICARE PPOPolicy [id number] [place] [address]Fcs: Number: Repository [id number] (HP) Date:5247-56-53UG [address] [place] [address]OT: 05/30/2017 Secondary NOT GIVENUNK [place] Insurance:SELF PAY [facility] Number: Effective Repository Date:2017-05-30
== END 2018-04-01 13:00 | disposition home or self-care (01) ==
LOC: MTLAB 12:20
PROVIDERS: Family Provider Nurse Practitioner Family; PCP Nurse Practitioner Family; Referring Provider Internal Medicine Rheumatology; Visit Provider Internal Medicine Rheumatology
DX: L40.59 Other psoriatic arthropathy (principal); M35.00 Sjogren syndrome, unspecified; M79.7 Fibromyalgia; M15.9 Polyosteoarthritis, unspecified; M21.40 Flat foot [pes planus] (acquired), unspecified foot; I10 Essential (primary) hypertension; E78.5 Hyperlipidemia, unspecified; Z90.5 Acquired absence of kidney; Z79.899 Other long term (current) drug therapy
CPT/HCPCS: 36415; 80053; 85025

== ENCOUNTER → 2018-06-27 12:12 | Outpatient (CLI) | payer MEDICARE, SELFPAY ==
[2017-10-23 09:58] VITALS: BMI 37.2
[2018-04-18 10:19] VITALS: BMI 35.9
[2018-06-27 14:21] LABS: Absolute Lymphocyte Count 2.91 X10^3/ul (0.83-4.51); Absolute Neutrophil Count 4.4 X10^3/uL (2.0-7.7); Basophil# 0.03 X10^3/uL; Basophil% 0.4 % (0-1); Eosinophil# 0.11 X10^3/uL; Eosinophils% 1.4 % (0-5); Hematocrit 38.4 % (37-47); Hemoglobin 12.1 g/dl (12.0-15.0); Lymphocyte # 2.91 X10^3/ul (4.0); Lymphocyte % 36.6 % (19-41); Mean Corp Hgb Conc 31.5 g/gl (32-36); Mean Corpuscular Hgb 29.4 pg (27.0-32.0); Mean Corpuscular Volume 93.2 fL (81-99); Mean Platelet Vol. 9.5 fl (6.2-12.0); Monocyte# 0.48 X10^3/uL; Neutrophil # 4.41 X10^3/uL (2.7-7.7); Neutrophil % 55.3 % (47-70); Platelet Count 327 K/mm3 (150-450); RBC Distribution Width CV 14.3 % (11.6-14.6); RBC Distribution Width SD 48.4 fl (35.1-43.9); Red Blood Count 4.12 M/mm3 (4.2-5.4)
[2018-06-27 14:27] LABS: POSITIVE COUNT NO; POSITIVE DIFFERENTIAL NO; POSITIVE MORPHOLOGY NO
[2018-06-27 14:56] LABS: AST(SGOT) 22 U/L (15-37); Alanine Aminotransfer ALT/SGPT 29 U/L (13-56); Albumin, Serum 3.7 g/dL (3.2-5.0); Alkaline Phosphatase 81 U/L (45-117); Anion Gap 7 (5-15); BUN 17 mg/dL (7-18); BUN/Creat Ratio 22.4 RATIO (10-20); Calcium,Total 9.1 mg/dL (8.5-10.1); Chloride 103 mmol/L (98-107); Creatinine, Serum 0.76 mg/dL (0.55-1.02); EST Glomerular Filtration Rate 80 mL/min (>60); Est Glom Filt Rate - Afr Amer 97 mL/min (>60); Globulin 3.8 g/dL (2.2-4.2); Glucose 113 mg/dL (74-106); Protein, Total 7.5 g/dL (6.4-8.2); Sodium Level 140 mmol/L (136-145)
== END ==
PROVIDERS: Family Provider Nurse Practitioner Family; PCP Nurse Practitioner Family; Referring Provider Internal Medicine Rheumatology; Visit Provider Internal Medicine Rheumatology
DX: L40.59 Other psoriatic arthropathy (principal); Z79.899 Other long term (current) drug therapy; M35.00 Sjogren syndrome, unspecified; M79.7 Fibromyalgia; M15.9 Polyosteoarthritis, unspecified; M21.40 Flat foot [pes planus] (acquired), unspecified foot; Z90.5 Acquired absence of kidney; E78.5 Hyperlipidemia, unspecified; I10 Essential (primary) hypertension
CPT/HCPCS: 36415; 80053; 85025

== ENCOUNTER → 2018-08-02 | Outpatient (CLI) | payer MEDICARE, SELFPAY ==
[2017-10-23 09:58] VITALS: BMI 37.2
[2018-07-18 11:36] VITALS: BMI 35.5
[2018-08-02 14:31] LABS: Synovial Fld Mononuclear WBC % 61.5 %; Synovial Fld Polynuclear WBC # 0.195 10^3/ul; Synovial Fld Polynuclear WBC % 38.5 %
[2018-08-02 15:08] LABS: Appearance /Synovial Fluid Clear (CLEAR); Color / Synovial Fluid Yellow (Pale Yellow)
[2018-08-02 15:10] LABS: RBC /Synovial Fluid 371 /mm3 (0)
[2018-08-02 15:11] LABS: AUTO B FLUID DILUENT BKGD CT WBC <0.1 RBC <0.01 (W<.1,R<.01); Total Volume / Synovial Fluid 2.5 ml (0.1-3.5); Viscosity / Synovial Fluid Sl. Viscous (HIGH)
[2018-08-05 12:58] LABS: Pathologist Comment Reviewed
== END | disposition home or self-care (01) ==
LOC: LABSPEC 12:48
PROVIDERS: Family Provider Nurse Practitioner Family; PCP Nurse Practitioner Family; Referring Provider Internal Medicine Rheumatology; Visit Provider Internal Medicine Rheumatology
DX: L40.59 Other psoriatic arthropathy (principal)
CPT/HCPCS: 89050; 89051

== ENCOUNTER → 2018-09-18 | Outpatient (CLI) | payer MEDICARE, SELFPAY ==
[2017-10-23 09:58] VITALS: BMI 37.2
[2018-07-18 11:36] VITALS: BMI 35.5
[2018-09-18 12:13] LABS: Absolute Lymphocyte Count 2.38 X10^3/ul (0.83-4.51); Absolute Neutrophil Count 4.4 X10^3/uL (2.0-7.7); Basophil# 0.02 X10^3/uL; Basophil% 0.3 % (0-1); Eosinophil# 0.15 X10^3/uL; Hematocrit 40.2 % (37-47); Lymphocyte # 2.38 X10^3/ul (4.0); Lymphocyte % 31.9 % (19-41); Mean Corp Hgb Conc 32.3 g/gl (32-36); Mean Corpuscular Hgb 29.1 pg (27.0-32.0); Mean Corpuscular Volume 90.1 fL (81-99); Mean Platelet Vol. 9.5 fl (6.2-12.0); Monocyte% 6.7 % (0-10); Neutrophil # 4.39 X10^3/uL (2.7-7.7); POSITIVE COUNT NO; POSITIVE DIFFERENTIAL NO; POSITIVE MORPHOLOGY NO; Platelet Count 393 K/mm3 (150-450); RBC Distribution Width CV 14.9 % (11.6-14.6); RBC Distribution Width SD 48.5 fl (35.1-43.9); Red Blood Count 4.46 M/mm3 (4.2-5.4); White Blood Count 7.5 K/mm3 (4.4-11.0)
[2018-09-18 12:56] LABS: ALB/GLOB Ratio 0.9 RATIO (0.9-2.4); AST(SGOT) 19 U/L (15-37); Alanine Aminotransfer ALT/SGPT 28 U/L (13-56); Albumin, Serum 3.6 g/dL (3.2-5.0); Alkaline Phosphatase 87 U/L (45-117); Anion Gap 10 (5-15); BUN 16 mg/dL (7-18); BUN/Creat Ratio 20.5 RATIO (10-20); Calcium,Total 9.7 mg/dL (8.5-10.1); Chloride 104 mmol/L (98-107); Cholesterol 220 mg/dL (200); Creatinine, Serum 0.78 mg/dL (0.55-1.02); EST Glomerular Filtration Rate 77 mL/min (>60); Est Glom Filt Rate - Afr Amer 94 mL/min (>60); Glucose 91 mg/dL (74-106); High Density Lipoprotein 60 mg/dL; Protein, Total 7.6 g/dL (6.4-8.2); Sodium Level 138 mmol/L (136-145); Triglycerides 186 mg/dL; Very Low Density Lipoprotein 37 mg/dL (5-40)
== END | disposition home or self-care (01) ==
LOC: MTLAB 10:15
PROVIDERS: Family Provider Nurse Practitioner Family; PCP Nurse Practitioner Family; Referring Provider Internal Medicine Rheumatology; Visit Provider Internal Medicine Rheumatology
DX: L40.59 Other psoriatic arthropathy (principal); Z79.899 Other long term (current) drug therapy; M35.00 Sjogren syndrome, unspecified; M79.7 Fibromyalgia; M15.9 Polyosteoarthritis, unspecified; L40.8 Other psoriasis; I10 Essential (primary) hypertension; E78.5 Hyperlipidemia, unspecified
CPT/HCPCS: 36415; 80053; 80061; 85025

== ENCOUNTER → 2018-12-02 | Outpatient (CLI) | payer MEDICARE, SELFPAY ==
[2017-10-23 09:58] VITALS: BMI 37.2
[2018-10-24 11:34] VITALS: BMI 36.4
--- NOTE | 2018-12-02 10:41 | BI_ITS ---
MAMMOGRAPHY - BILATERAL SCREENING 3-D TOMOSYNTHESIS REASON FOR EXAM: Female, 68 years old. Bilateral Screening 3-D tomosynthesis PERTINENT HISTORY: Personal history of breast cancer, with lumpectomy on the left in 2018.. TECHNIQUE: 2-D mammograms and 3-D Tomosynthesis of the breast (s) were performed. CAD was performed. COMPARISON: 08/30/2017, 08/17/2017, 05/02/2016. FINDINGS: The breast composition is composed of scattered fibroglandular density. Post lump in the change on the left. Scattered benign calcifications are seen. No dense spiculated masses or suspicious microcalcifications are identified. No architectural distortion is identified. There is no skin thickening or retraction. There has been no significant change on the right since the prior study. BI/SCREEN MAMM (CAD) W/CAROLINE BILAT IMPRESSION: No mammographic signs of malignancy. Routine yearly mammograms recommended. ASSESSMENT CATEGORY: BIRADS Category 2: Benign. A letter regarding these results will be sent to the patient by the facility within 30 days. FOLLOW UP RECOMMENDATION: Yearly follow up mammogram recommended. (A) Approximately 10% of breast cancers are not detected by mammography. A normal mammogram should not delay biopsy of a clinically suspicious abnormality. Electronically Signed: Mika Palumbo MD at 16:05 EDT Tel [phone], Service support ,
== END | disposition home or self-care (01) ==
LOC: OPBI 10:39
PROVIDERS: Family Provider Nurse Practitioner Family; PCP Nurse Practitioner Family; Referring Provider Internal Medicine Hematology & Oncology; Visit Provider Internal Medicine Hematology & Oncology
DX: C50.912 Malignant neoplasm of unspecified site of left female breast (principal); Z12.31 Encounter for screening mammogram for malignant neoplasm of breast
CPT/HCPCS: 77063; 77067

== ENCOUNTER → 2018-12-13 | Outpatient (CLI) | payer MEDICARE, SELFPAY ==
[2017-10-23 09:58] VITALS: BMI 37.2
[2018-10-24 11:34] VITALS: BMI 36.4
[2018-12-13 17:32] LABS: Absolute Lymphocyte Count 3.33 X10^3/uL (0.83-4.51); Absolute Neutrophil Count 7.4 X10^3/uL (2.0-7.7); Basophil# 0.05 X10^3/uL; Basophil% 0.4 % (0-1); Eosinophil# 0.22 X10^3/uL; Eosinophils% 1.9 % (0-5); Hemoglobin 12.2 g/dL (12.0-15.0); Lymphocyte # 3.33 X10^3/ul (4.0); Lymphocyte % 28.1 % (19-41); Mean Corp Hgb Conc 32.1 g/dL (32-36); Mean Corpuscular Hgb 30.2 pg (27.0-32.0); Mean Corpuscular Volume 94.1 fL (81-99); Monocyte# 0.81 X10^3/uL; Monocyte% 6.8 % (0-10); NRBC Flagged by Analyzer 0 % (0-5); Neutrophil # 7.38 X10^3/uL (2.7-7.7); Neutrophil % 62.1 % (47-70); Platelet Count 369 K/mm3 (150-450); RBC Distribution Width SD 47.5 fl (35.1-43.9); Red Blood Count 4.04 M/mm3 (4.2-5.4); White Blood Count 11.9 K/mm3 (4.4-11.0)
[2018-12-13 17:45] LABS: ALB/GLOB Ratio 0.9 RATIO (0.9-2.4); AST(SGOT) 19 U/L (15-37); Alanine Aminotransfer ALT/SGPT 33 U/L (13-56); Albumin, Serum 3.6 g/dL (3.2-5.0); Alkaline Phosphatase 93 U/L (45-117); Anion Gap 9 (5-15); BUN 15 mg/dL (7-18); Chloride 104 mmol/L (98-107); Creatinine, Serum 0.79 mg/dL (0.55-1.02); EST Glomerular Filtration Rate 76 mL/min (>60); Est Glom Filt Rate - Afr Amer 93 mL/min (>60); Glucose 93 mg/dL (74-106); Protein, Total 7.6 g/dL (6.4-8.2); Sodium Level 140 mmol/L (136-145)
== END | disposition home or self-care (01) ==
LOC: MTLAB 15:22
PROVIDERS: Family Provider Nurse Practitioner Family; PCP Nurse Practitioner Family; Referring Provider Internal Medicine Rheumatology; Visit Provider Internal Medicine Rheumatology
DX: L40.59 Other psoriatic arthropathy (principal); Z79.899 Other long term (current) drug therapy; M35.00 Sjogren syndrome, unspecified; M79.7 Fibromyalgia; M71.21 Synovial cyst of popliteal space [Baker], right knee; M15.9 Polyosteoarthritis, unspecified; L40.8 Other psoriasis; M21.40 Flat foot [pes planus] (acquired), unspecified foot; Z90.5 Acquired absence of kidney; I10 Essential (primary) hypertension; E78.5 Hyperlipidemia, unspecified
CPT/HCPCS: 36415; 80053; 85025

== ENCOUNTER → 2019-03-11 13:24 | Outpatient (CLI) | payer MEDICARE, SELFPAY ==
[2017-10-23 09:58] VITALS: BMI 37.2
[2019-01-23 11:40] VITALS: BMI 35.4
[2019-03-11 15:54] LABS: Absolute Lymphocyte Count 2.36 X10^3/uL (0.83-4.51); Absolute Neutrophil Count 5.8 X10^3/uL (2.0-7.7); Basophil# 0.03 X10^3/uL; Basophil% 0.3 % (0-1); Eosinophil# 0.14 X10^3/uL; Eosinophils% 1.6 % (0-5); Hematocrit 37.8 % (37-47); Lymphocyte # 2.36 X10^3/ul (4.0); Lymphocyte % 26.4 % (19-41); Mean Corp Hgb Conc 31.7 g/dL (32-36); Mean Corpuscular Hgb 29.6 pg (27.0-32.0); Mean Corpuscular Volume 93.1 fL (81-99); Mean Platelet Vol. 9.9 fl (6.2-12.0); Monocyte# 0.54 X10^3/uL; NRBC Flagged by Analyzer 0 % (0-5); Neutrophil # 5.84 X10^3/uL (2.7-7.7); Neutrophil % 65.5 % (47-70); Platelet Count 345 K/mm3 (150-450); RBC Distribution Width CV 14.4 % (11.6-14.6); RBC Distribution Width SD 48.3 fl (35.1-43.9); Red Blood Count 4.06 M/mm3 (4.2-5.4); White Blood Count 8.9 K/mm3 (4.4-11.0)
[2019-03-11 16:11] LABS: AST(SGOT) 21 U/L (15-37); Alanine Aminotransfer ALT/SGPT 24 U/L (13-56); Albumin, Serum 3.8 g/dL (3.2-5.0); Alkaline Phosphatase 93 U/L (45-117); Anion Gap 7 (5-15); BUN 17 mg/dL (7-18); BUN/Creat Ratio 21.1 RATIO (10-20); Calcium,Total 9.6 mg/dL (8.5-10.1); Chloride 103 mmol/L (98-107); Creatinine, Serum 0.81 mg/dL (0.55-1.02); EST Glomerular Filtration Rate 75 mL/min (>60); Est Glom Filt Rate - Afr Amer 90 mL/min (>60); Globulin 3.8 g/dL (2.2-4.2); Glucose 103 mg/dL (74-106); Potassium 3.8 mmol/L (3.5-5.1); Protein, Total 7.6 g/dL (6.4-8.2); Sodium Level 138 mmol/L (136-145)
== END ==
PROVIDERS: Family Provider Nurse Practitioner Family; PCP Nurse Practitioner Family; Referring Provider Internal Medicine Rheumatology; Visit Provider Internal Medicine Rheumatology
DX: L40.59 Other psoriatic arthropathy (principal); Z79.899 Other long term (current) drug therapy; M35.00 Sjogren syndrome, unspecified; M79.7 Fibromyalgia; M71.21 Synovial cyst of popliteal space [Baker], right knee; M15.9 Polyosteoarthritis, unspecified; M21.40 Flat foot [pes planus] (acquired), unspecified foot; Z90.5 Acquired absence of kidney; I10 Essential (primary) hypertension; E78.5 Hyperlipidemia, unspecified
CPT/HCPCS: 36415; 80053; 85025

== ENCOUNTER → 2019-06-13 13:06 | Outpatient (CLI) | payer MEDICARE, SELFPAY ==
[2017-10-23 09:58] VITALS: BMI 37.2
[2019-04-29 11:14] VITALS: BMI 35.6
[2019-06-13 14:07] LABS: Absolute Lymphocyte Count 3.43 X10^3/uL (0.83-4.51); Absolute Neutrophil Count 5.8 X10^3/uL (2.0-7.7); Basophil# 0.04 X10^3/uL; Basophil% 0.4 % (0-1); Eosinophil# 0.13 X10^3/uL; Eosinophils% 1.3 % (0-5); Hematocrit 38.5 % (37-47); Hemoglobin 12.6 g/dL (12.0-15.0); Lymphocyte # 3.43 X10^3/ul (4.0); Lymphocyte % 34.4 % (19-41); Mean Corp Hgb Conc 32.7 g/dL (32-36); Mean Corpuscular Hgb 29.5 pg (27.0-32.0); Mean Corpuscular Volume 90.2 fL (81-99); Mean Platelet Vol. 9.6 fl (6.2-12.0); Monocyte# 0.58 X10^3/uL; Monocyte% 5.8 % (0-10); NRBC Flagged by Analyzer 0 % (0-5); Neutrophil # 5.75 X10^3/uL (2.7-7.7); Neutrophil % 57.7 % (47-70); Platelet Count 376 K/mm3 (150-450); RBC Distribution Width CV 14.3 % (11.6-14.6); RBC Distribution Width SD 46.6 fl (35.1-43.9); Red Blood Count 4.27 M/mm3 (4.2-5.4)
[2019-06-13 14:31] LABS: ALB/GLOB Ratio 0.9 RATIO (0.9-2.4); AST(SGOT) 14 U/L (15-37); Alanine Aminotransfer ALT/SGPT 22 U/L (13-56); Albumin, Serum 3.5 g/dL (3.2-5.0); Alkaline Phosphatase 88 U/L (45-117); Anion Gap 7 (5-15); BUN 18 mg/dL (7-18); BUN/Creat Ratio 23.1 RATIO (10-20); Calcium,Total 9.5 mg/dL (8.5-10.1); Chloride 105 mmol/L (98-107); Creatinine, Serum 0.78 mg/dL (0.55-1.02); EST Glomerular Filtration Rate 77 mL/min (>60); Est Glom Filt Rate - Afr Amer 94 mL/min (>60); Globulin 4.1 g/dL (2.2-4.2); Glucose 118 mg/dL (74-106); Potassium 3.9 mmol/L (3.5-5.1); Protein, Total 7.6 g/dL (6.4-8.2); Sodium Level 138 mmol/L (136-145)
== END ==
PROVIDERS: PCP Nurse Practitioner Family; Referring Provider Internal Medicine Rheumatology; Visit Provider Internal Medicine Rheumatology
DX: L40.59 Other psoriatic arthropathy (principal); Z79.899 Other long term (current) drug therapy; M35.00 Sjogren syndrome, unspecified; M79.7 Fibromyalgia; M71.21 Synovial cyst of popliteal space [Baker], right knee; M15.9 Polyosteoarthritis, unspecified; L40.8 Other psoriasis; M21.40 Flat foot [pes planus] (acquired), unspecified foot; Z90.5 Acquired absence of kidney; I10 Essential (primary) hypertension; E78.5 Hyperlipidemia, unspecified
CPT/HCPCS: 36415; 80053; 85025

== ENCOUNTER → 2019-09-03 09:32 | Outpatient (CLI) | payer MEDICARE, SELFPAY ==
[2017-10-23 09:58] VITALS: BMI 37.2
[2019-04-29 11:14] VITALS: BMI 35.6
[2019-09-03 12:35] LABS: Absolute Lymphocyte Count 2.54 X10^3/uL (0.83-4.51); Basophil# 0.04 X10^3/uL; Basophil% 0.5 % (0-1); Eosinophil# 0.18 X10^3/uL; Eosinophils% 2.2 % (0-5); Hematocrit 38.4 % (37-47); Hemoglobin 12.1 g/dL (12.0-15.0); Lymphocyte # 2.54 X10^3/ul (4.0); Lymphocyte % 30.4 % (19-41); Mean Corp Hgb Conc 31.5 g/dL (32-36); Mean Corpuscular Hgb 29.5 pg (27.0-32.0); Mean Corpuscular Volume 93.7 fL (81-99); Mean Platelet Vol. 9.9 fl (6.2-12.0); Monocyte# 0.56 X10^3/uL; Monocyte% 6.7 % (0-10); NRBC Flagged by Analyzer 0 % (0-5); Neutrophil # 5.01 X10^3/uL (2.7-7.7); Neutrophil % 59.8 % (47-70); Platelet Count 374 K/mm3 (150-450); RBC Distribution Width CV 13.7 % (11.6-14.6); RBC Distribution Width SD 46.3 fl (35.1-43.9); White Blood Count 8.4 K/mm3 (4.4-11.0)
[2019-09-03 12:54] LABS: ALB/GLOB Ratio 0.9 RATIO (0.9-2.4); AST(SGOT) 13 U/L (15-37); Alanine Aminotransfer ALT/SGPT 20 U/L (13-56); Albumin, Serum 3.5 g/dL (3.2-5.0); Alkaline Phosphatase 91 U/L (45-117); Anion Gap 7 (5-15); BUN 16 mg/dL (7-18); BUN/Creat Ratio 19.2 RATIO (10-20); Calcium,Total 9.8 mg/dL (8.5-10.1); Chloride 104 mmol/L (98-107); Creatinine, Serum 0.84 mg/dL (0.55-1.02); EST Glomerular Filtration Rate 71 mL/min (>60); Est Glom Filt Rate - Afr Amer 86 mL/min (>60); Globulin 3.9 g/dL (2.2-4.2); Glucose 117 mg/dL (74-106); Potassium 4.3 mmol/L (3.5-5.1); Protein, Total 7.4 g/dL (6.4-8.2); Sodium Level 139 mmol/L (136-145)
== END ==
PROVIDERS: PCP Nurse Practitioner Family; Referring Provider Internal Medicine Rheumatology; Visit Provider Internal Medicine Rheumatology
DX: L40.59 Other psoriatic arthropathy (principal); Z79.899 Other long term (current) drug therapy; M35.00 Sjogren syndrome, unspecified; M79.7 Fibromyalgia; M71.21 Synovial cyst of popliteal space [Baker], right knee; M15.9 Polyosteoarthritis, unspecified; L40.8 Other psoriasis; M21.40 Flat foot [pes planus] (acquired), unspecified foot; Z90.5 Acquired absence of kidney; I10 Essential (primary) hypertension; E78.5 Hyperlipidemia, unspecified
CPT/HCPCS: 36415; 80053; 85025

== ENCOUNTER → 2019-11-13 16:18 | Outpatient (CLI) | payer MEDICARE, SELFPAY ==
[2017-10-23 09:58] VITALS: BMI 37.2
[2019-10-28 13:13] VITALS: BMI 33.7
[2019-11-15 12:07] LABS: RNP Ab <0.2 AI (0.0-0.9); SJOGREN'S Anti-SS-A test < 0.2 AI (0.0-0.9); SJOGREN'S Anti-SS-B test < 0.2 AI (0.0-0.9); Smith Ab <0.2 AI (0.0-0.9)
[2019-11-15 12:23] LABS: ANTINUCLEAR ANTIBODIES DIRECT Positive (Negative); Anti-dsDNA Ab <1 IU/mL (0-9)
== END ==
PROVIDERS: PCP Nurse Practitioner Family; Referring Provider Dermatology; Visit Provider Dermatology
DX: L30.9 Dermatitis, unspecified (principal)
CPT/HCPCS: 36415; 86038; 86225; 86235

== ENCOUNTER → 2019-12-05 10:24 | Outpatient (CLI) | payer MEDICARE, SELFPAY ==
[2017-10-23 09:58] VITALS: BMI 37.2
[2019-10-28 13:13] VITALS: BMI 33.7
--- NOTE | 2019-12-05 11:33 | BI_ITS ---
MAMMOGRAPHY - BILATERAL SCREENING REASON FOR EXAM: Female, 69 years old. Routine annual screening examination. PERTINENT HISTORY: BILAT SCREENING - PERSONAL HX @ AGE 67 WITH LEFT LUMPECTOMY 2018 WITH NO F/U - BREAST REDUCTION IN THE D - BILAT SKIN TAGS MARKED TECHNIQUE: Digital bilateral breast caroline (3D mammographic acquisition) in the CC and MLO projections. 2-D mediolateral oblique (MLO) and craniocaudad (CC) views of both breasts were obtained. CAD: Full Field Digital Mammography with Computer Added Detection was performed. COMPARISON: None. FINDINGS: Breast Composition: The breasts are almost entirely fatty. There are no dominant masses or suspicious calcifications. No other significant abnormalities are identified. BI/SCREEN MAMM (CAD) W/CAROLINE BILAT IMPRESSION: Stable bilateral screening mammogram. Yearly follow-up mammogram recommended. (A) ASSESSMENT CATEGORY: BIRADS Category 2: Benign. A letter regarding these results will be sent to the patient by the facility within 30 days. Approximately 10% of breast cancers are not detected by mammography. A normal mammogram should not delay biopsy of a clinically suspicious abnormality. [id number] Electronically Signed: Petty Luz, at 13:15 EDT Tel , Service support ,
== END ==
PROVIDERS: PCP Nurse Practitioner Family; Referring Provider Internal Medicine Hematology & Oncology; Visit Provider Internal Medicine Hematology & Oncology
DX: C50.912 Malignant neoplasm of unspecified site of left female breast (principal); Z78.0 Asymptomatic menopausal state; Z12.31 Encounter for screening mammogram for malignant neoplasm of breast
CPT/HCPCS: 77063; 77067

== ENCOUNTER → 2020-01-09 12:23 | Outpatient (CLI) | payer MEDICARE, SELFPAY ==
[2017-10-23 09:58] VITALS: BMI 37.2
[2019-10-28 13:13] VITALS: BMI 33.7
[2020-01-09 15:18] LABS: Absolute Lymphocyte Count 3.05 X10^3/uL (0.83-4.51); Absolute Neutrophil Count 6.1 X10^3/uL (2.0-7.7); Basophil# 0.03 X10^3/uL; Basophil% 0.3 % (0-1); Eosinophil# 0.09 X10^3/uL; Eosinophils% 0.9 % (0-5); Hematocrit 37.4 % (37-47); Hemoglobin 11.7 g/dL (12.0-15.0); Lymphocyte # 3.05 X10^3/ul (4.0); Lymphocyte % 30.5 % (19-41); Mean Corp Hgb Conc 31.3 g/dL (32-36); Mean Corpuscular Hgb 29.1 pg (27.0-32.0); Mean Platelet Vol. 9.9 fl (6.2-12.0); Monocyte# 0.68 X10^3/uL; Monocyte% 6.8 % (0-10); NRBC Flagged by Analyzer 0 % (0-5); Neutrophil # 6.12 X10^3/uL (2.7-7.7); Neutrophil % 61.1 % (47-70); Platelet Count 406 K/mm3 (150-450); RBC Distribution Width CV 14.5 % (11.6-14.6); RBC Distribution Width SD 49.3 fl (35.1-43.9); Red Blood Count 4.02 M/mm3 (4.2-5.4)
[2020-01-09 15:36] LABS: ALB/GLOB Ratio 0.8 RATIO (0.9-2.4); AST(SGOT) 14 U/L (15-37); Alanine Aminotransfer ALT/SGPT 21 U/L (13-56); Albumin, Serum 3.1 g/dL (3.2-5.0); Alkaline Phosphatase 82 U/L (45-117); Anion Gap 3 (5-15); BUN 18 mg/dL (7-18); Calcium,Total 9.2 mg/dL (8.5-10.1); Chloride 108 mmol/L (98-107); Creatinine, Serum 0.64 mg/dL (0.55-1.02); EST Glomerular Filtration Rate 97 mL/min (>60); Est Glom Filt Rate - Afr Amer 117 mL/min (>60); Globulin 3.8 g/dL (2.2-4.2); Glucose 79 mg/dL (74-106); Potassium 4.2 mmol/L (3.5-5.1); Protein, Total 6.9 g/dL (6.4-8.2); Sodium Level 139 mmol/L (136-145)
== END ==
PROVIDERS: PCP Nurse Practitioner Family; Referring Provider Internal Medicine Rheumatology; Visit Provider Internal Medicine Rheumatology
DX: L40.59 Other psoriatic arthropathy (principal); Z79.899 Other long term (current) drug therapy; M35.00 Sjogren syndrome, unspecified; M79.7 Fibromyalgia; M71.21 Synovial cyst of popliteal space [Baker], right knee; M15.9 Polyosteoarthritis, unspecified; L40.8 Other psoriasis; M21.40 Flat foot [pes planus] (acquired), unspecified foot; Z90.5 Acquired absence of kidney; I10 Essential (primary) hypertension; E78.5 Hyperlipidemia, unspecified
CPT/HCPCS: 36415; 80053; 85025

== ENCOUNTER → 2020-02-13 14:23 | Outpatient (CLI) | payer MEDICARE, SELFPAY ==
[2017-10-23 09:58] VITALS: BMI 37.2
[2020-02-10 10:54] VITALS: BMI 33.5
[2020-02-10 11:59] LABS: Absolute Lymphocyte Count 2.38 X10^3/uL (0.83-4.51); Absolute Neutrophil Count 5.4 X10^3/uL (2.0-7.7); Basophil# 0.03 X10^3/uL; Basophil% 0.4 % (0-1); Eosinophil# 0.17 X10^3/uL; Hematocrit 37.6 % (37-47); Lymphocyte # 2.38 X10^3/ul (4.0); Lymphocyte % 27.8 % (19-41); Mean Corp Hgb Conc 31.9 g/dL (32-36); Mean Corpuscular Hgb 29.3 pg (27.0-32.0); Mean Corpuscular Volume 91.7 fL (81-99); Mean Platelet Vol. 9.2 fl (6.2-12.0); Monocyte# 0.57 X10^3/uL; Monocyte% 6.7 % (0-10); NRBC Flagged by Analyzer 0 % (0-5); Neutrophil # 5.38 X10^3/uL (2.7-7.7); Neutrophil % 62.9 % (47-70); Platelet Count 357 K/mm3 (150-450); RBC Distribution Width CV 13.8 % (11.6-14.6); RBC Distribution Width SD 46.5 fl (35.1-43.9); White Blood Count 8.6 K/mm3 (4.4-11.0)
[2020-02-10 12:26] LABS: ALB/GLOB Ratio 0.9 RATIO (0.9-2.4); AST(SGOT) 20 U/L (15-37); Alanine Aminotransfer ALT/SGPT 23 U/L (13-56); Albumin, Serum 3.3 g/dL (3.2-5.0); Alkaline Phosphatase 95 U/L (45-117); Anion Gap 7 (5-15); BUN 12 mg/dL (7-18); Calcium,Total 9.1 mg/dL (8.5-10.1); Chloride 108 mmol/L (98-107); Creatinine, Serum 0.67 mg/dL (0.55-1.02); EST Glomerular Filtration Rate 93 mL/min (>60); Est Glom Filt Rate - Afr Amer 112 mL/min (>60); Globulin 3.7 g/dL (2.2-4.2); Glucose 89 mg/dL (74-106); Lipase 103 U/L (73-393); Sodium Level 140 mmol/L (136-145)
--- NOTE | 2020-02-13 14:24 | CT_ITS ---
STUDY: CT ABDOMEN AND PELVIS WITH CONTRAST REASON FOR EXAM: Female, 69 years old. ABD PAIN/CHANGE IN BOWELS AND LEFT SIDED PAIN. LEFT NEPHRECTOMY DUE TO ATROPHY RADIATION DOSAGE (If Supplied By Facility): CTDIvol = ( 16.80 ) mGy, DLP = ( 897.48 ) mGycm TECHNIQUE: Transaxial images were obtained from the dome of the diaphragm to the symphysis pubis with oral contrast. 100 mL ISOVUE-300 was administered. Sagittal and coronal images were reconstructed. Individualized dose optimization techniques were used for this CT. COMPARISON: None. FINDINGS: The visualized lung bases are unremarkable. Rounded fat density between the right and left atria likely represents an intra-atrial septal lipoma, not typically clinically significant. Normal liver. Normal gallbladder and extrahepatic biliary system. Normal spleen. Normal pancreas. Normal bilateral adrenal glands. Punctate calcification in the right kidney measuring 2 mm on image 45. Left kidney is surgically absent. No hydronephrosis or solid renal masses. Normal visualized stomach. There is a small duodenal diverticulum. No colon wall thickening. There is moderate fecal retention throughout the colon with scattered diverticular changes of the left colon. The appendix is visualized and appears normal. There is diffuse atherosclerotic calcification of the abdominal aorta, without a demonstrated aneurysm. Normal inferior vena cava. Normal retroperitoneum. Normal urinary bladder. There is absence of the uterus consistent with a prior hysterectomy. Normal abdominal wall. Degenerative facet related anterolisthesis of L4-L5 (grade 1). No destructive bony process. CT/Abdomen/Pelvis WITH Contrast IMPRESSION: 1. No acute inflammatory process or bowel obstruction. 2. Moderate fecal retention. Diverticulosis without evidence of diverticulitis. 3. Nonobstructing 2 mm right renal calculus. 4. Left nephrectomy. Hysterectomy. Electronically Signed: Drake Calvillo MD ([place]) at 13:06 EDT , Service support ,
== END ==
PROVIDERS: PCP Nurse Practitioner Family; Referring Provider Surgery; Visit Provider Surgery
DX: R19.4 Change in bowel habit (principal); R10.9 Unspecified abdominal pain
CPT/HCPCS: 36415; 74177; 80053; 83690; 85025; Q9967

== ENCOUNTER 2020-02-24 05:21 | Day surgery (SDC) | payer MEDICARE, SELFPAY ==
[2017-10-23 09:58] VITALS: BMI 37.2
[2020-02-10 10:54] VITALS: BMI 33.5
--- NOTE | 2020-02-24 | COLBX_PTH ---
PATIENT: LILIANA COURTNEY LOC: EN U#:[id number] AGE/SX: 69/F ROOM: RE02/24/[address]: Dr. Abdulaziz Guaman MD : 1950 BED: DIS: 02/24/2020 SPEC #: [id number] RECD: 02/24/20 10:57 STATUS: RAMSEY JAMES #: [id number] ALEK: 02/24/20 00:[address]: Abdulaziz Guaman DEPT: SURGICAL PATHOLOGY RECD BY: Guerrero Castro ENTERED: 02/24/20 10:57 SP TYPE: COLON BX OTHR DR: Javier Loyola, HYDROGEOLOGIST-C Tissues: A - Ascending colon B - Rectum, NOS Procedures: Surgery Specimen Level IV HEADER OPERATION: Colonoscopy (MAC) PRE-OP DIAGNOSIS: Abdominal pain TISSUE SUBMITTED: A - Proximal ascending polyp, B - Rectal polyp MICROSCOPIC DIAGNOSIS A. Proximal ascending colon polyp, biopsy: Fragments of tubulovillous adenoma. Fragments of fecal material. B. Rectal polyp, biopsy: Tubular adenoma. Fragments of fecal material. DINO:ramin 02/25/20 MICROSCOPIC DESCRIPTION Slides are reviewed. GROSS DESCRIPTION A - Received in fixative is one container labeled with the patient's name and designated proximal ascending polyp. The specimen consists of multiple irregular fragments of [place] soft tissue mixed with fecal material that in aggregate measure 2.5 x 1 x 0.2 cm. The specimen predominantly consists of fecal material. The entire specimen is submitted in one cassette. B - Received in fixative is one container labeled with the patient's name and designated rectal polyp. The specimen consists of multiple irregular fragments of [place]-pink soft tissue mixed with fecal material that in aggregate measure 1 x 0.5 x 0.3 cm. The specimen is totally submitted in one cassette. / DINO:ramin 02/24/20 TC:1 CPT: 05766 x2
[2020-02-24 05:41] VITALS: BP 143/82; PULSE 83; RESP 16; TEMP 36.7; O2SAT 97; BMI 32.9
[2020-02-24] MEDS: Lactated Ringers 1,000 ML 100 ML IV (05:56)
--- NOTE | 2020-02-24 06:00 | PCM.HP.BLA ---
Problem List (1) Abdominal pain Status: Acute Qualifiers: History and Physical Date of Admission: 02/24/20 Intake Visit Reasons: CSCOPE/ CHANGE IN BOWEL HABITS Chief Complaint: change in bowels Community Development Manager Required: No Is patient in pain?: Yes (abdominal pain) Allergies methylene blue Allergy (Intermediate, Verified 02/10/20 10:55) Other Penicillins Allergy (Intermediate, Verified 02/10/20 10:55) itching Medications calcium carbonate 600 mg calcium (1,500 mg) tablet 600 mg PO QDAY tab 08/21/17 [History Confirmed 02/10/20] cholecalciferol (vitamin D3) 50 mcg (2,000 unit) capsule 2,000 unit PO QDAY 08/21/17 [History Confirmed 02/10/20] duloxetine 30 mg capsule,delayed release 30 mg PO QDAY 08/21/17 [History Confirmed 02/10/20] fluticasone propionate 50 mcg/actuation nasal spray,suspension 1 spray INTRANASAL PRN PRN 08/21/17 [History Confirmed 02/10/20] folic acid 1 mg tablet 2 mg PO QDAY 08/21/17 [History Confirmed 02/10/20] lovastatin 40 mg tablet 40 mg PO QDAY 08/21/17 [History Confirmed 02/10/20] methotrexate sodium 2.5 mg tablet 8 mg PO QWEEK tab 08/21/17 [History Confirmed 02/10/20] turmeric root extract 500 mg capsule 500 mg PO BID 08/21/17 [History Confirmed 02/10/20] Apremilast [Otezla] 30 mg PO BID 01/23/19 [History Confirmed 02/10/20] Anastrozole [Arimidex] 1 mg PO DAILY 90 Days #90 tab 01/27/20 [Rx Confirmed 02/10/20] Betamethasone Dipropionate 15 gm TP BID PRN 01/27/20 [History Confirmed 02/10/20] Fexofenadine HCl [Lyndsey Allergy] 60 mg PO 01/27/20 [History Confirmed 02/10/20] Leucovorin Calcium 150 mg PO QWEEK 01/27/20 [History Confirmed 02/10/20] Melatonin 10 mg PO QHS 01/27/20 [History Confirmed 02/10/20] Valsartan 1 tab PO DAILY 01/27/20 [History Confirmed 02/10/20] traMADol [Ultram (G)] 50 mg PO Q6H PRN PRN 01/27/20 [History Confirmed 01/27/20] PFSH Medical History Breast cancer (Acute) DJD (degenerative joint disease) (Acute) Heart murmur (Acute) Hyperlipidemia (Acute) Mitral regurgitation (Acute) Obesity (Acute) Psoriasis (Acute) Tinnitus (Acute) Tricuspid regurgitation (Acute) HTN (hypertension) (Chronic) Surgical History History of cataract surgery (Acute) History of kidney removal (Acute) History of lumpectomy (Acute) History of lumpectomy of left breast (Acute ~09/06/17) S/P hysterectomy with oophorectomy (Acute) Status post breast reduction (Acute) Family History Mother Diabetes CAD (coronary artery disease) CHF (congestive heart failure) Hypertension Sister Throat cancer Social History (Updated 02/10/20 @ 11:[address] Abdulaziz Guaman MD) Smoking Status: Never smoker alcohol intake: never HPI HPI HPI: LILIANA COURTNEY, is a 69 F who presents to the office today for surgical consultation regarding change of bowel habits. The patient is referred by Dr. Isabel Diggs and a written copy of my surgical consult and recommendations were returned to him. Patient has a known history of left breast cancer but that is not the primary concern today. She states that over a 1 perhaps 2-year period of time she has had weight loss from 240 pounds down 295 pounds. More recently she has had a thick mucus covering her stool. She has not noticed any bright red blood. She is also complaining of some diffuse bilateral abdominal pain. Has not had any nausea or vomiting. She denies fever or chills or sweats. She states that her general food intake has gradually diminished. She denies history of DVT. She is not on any anticoagulant. As of January 09, 2020 she had CBC showing white count of 10,000 with a hemoglobin 11.7 hematocrit 37.4 platelet count 4 and 6000. BUN 18 with a creatinine of 0.64. Per Dr. Diggs Patient is a 69-year-old female who presented after she felt a lump in her left breast confirm on a diagnostic mammogram. August 21, 2017 she underwent an ultrasound-guided needle core biopsy from the left breast revealing an invasive ductal carcinoma with mucinous features. Tumor was ER positive (over 95%), LA positive (over 95%) and HER-2/elsie negative. On September 06 she underwent a left breast partial mastectomy with sentinel lymph node biopsy revealing a single focus of invasive ductal cancer measuring 8 mm in maximum diameter overall grade 1 (total score of 4) negative margin 1 cm, lymphovascular invasion not identified, and no metastatic cancer found in 1 sentinel lymph node. Oncotype DX score 17 (low risk group) HPI HPI HPI: LILIANA COURTNEY, is a 69 F who presents to the office today for ROS General General: Yes weight change, fatigue and breast cancer; no appetite, colon cancer or weakness HEENT HEENT: Yes eye surgery; no difficulty swallowing, eye injury, swollen glands or hoarseness Endo Endocrine: No thyroid disease, diabetes mellitus, thyroid cancer, Hair loss, heat intolerance or cold intolerance Skin Skin: No rash or changing moles Breast Breast: No left breast lump, right breast lump, nipple discharge, breast pain, abnormal mammogram, abnormal US or breast enlargement Musc Musculoskeletal: Yes arthritis; no back problems, rheumatoid arthritis, gout or joint pain Cardio Cardiovascular: Yes murmur; no pacemaker, heart disease, atrial fibrillation, high blood pressure, heart attack, heart stent, palpitations, shortness of breat with exertion or chest pain Psych Psychiatric: Yes anxiety; no depression or hearing voices Resp Respiratory: No shortness of breath, No sleep apnea, No cough, No COPD, No asthma, No emphysema, No wheezing Gastro Gastrointestinal: Yes abdominal pain, No nausea or vomiting, No diarrhea, No constipation, No blood in stool, No acid reflux, No hemorrhoids, No ulcers, No gallbladder problem, No black,tarry stools Lino Hematologic: No blood thinners, No blood disorders, No bleeding, Yes anemia, No blood clots Neuro Neurologic: No system reviewed and no additional complaints, except as docu, No as per HPI, No abnormal walking, No abnormal hearing, No abnormal movements, No abnormal speech, No behavioral changes, No burning sensations, No confusion, No seizure-like activity, No unsteadiness, No dizziness, No localized weakness, No frequent falls, No headache(s), No lack of coordination, No loss of vision, No memory loss, Yes numbness, No other visual disturbances, No radiating pain, No restless legs, No sensory deficit, No fainting, Yes tingling, No tremor(s), No weakness, No other Exam Const General: cooperative, comfortable, no acute distress Nutritional Appearance: obese Orientation: alert, awake, oriented x3 Eyes General: appearance normal, both eyes and all related structures Chest Breast Palpation: No nipple discharge Resp Effort & Inspection: normal respiratory effort Auscultation: clear to auscultation bilaterally Cardio Rate: regular rate Rhythm: regular rhythm Heart Sounds: murmur Other: 2/6 systolic ejection murmur GI Palpation: soft Other: No hepatosplenomegaly, mild tenderness to palpation left upper quadrant left mid abdomen and left lower quadrant without mass or guarding Skin General: no rashes or lesions noted Neuro Cognition: normal cognition Extrem General: no calf tenderness Psych Affect: normal affect Assessment & Plan Problems 1. Left lower quadrant abdominal pain R10.32 Plan Nonspecific left-sided abdominal pain. Change of bowel habits with mucus per rectum. Personal history of left breast cancer. Etiology of the abdominal pain not determined. Patient may very well have acute colitis or diverticulitis. I recommend appropriate laboratory and a CBC of the abdomen pelvis. I recommend subsequently scheduling a colonoscopy at [facility] with possible biopsy or polypectomy as indicated. By verbal report she had a previous colonoscopy in 2017 which detected a polyp at that time. She has had an opportunity to ask and have questions answered. I appreciate the opportunity of assisting with her surgical care. We will schedule and proceed at her discretion. Copy: Dr. Isabel Diggs and Ellis Pizarro, FILIBERTO Guaman M.D., F.A.C.S. I have re-examined the patient. There are no clinical changes since date of exam. 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 ABD PAIN/CHANGE IN BOWELS AND LEFT SIDED PAIN. LEFT NEPHRECTOMY DUE TO ATROPHY RADIATION DOSAGE (If Supplied By Facility): CTDIvol = ( 16.80 ) mGy, DLP = ( 897.48 ) mGycm TECHNIQUE: Transaxial images were obtained from the dome of the diaphragm to the symphysis pubis with oral contrast. 100 mL ISOVUE-300 was administered. Sagittal and coronal images were reconstructed. Individualized dose optimization techniques were used for this CT. COMPARISON: None. FINDINGS: The visualized lung bases are unremarkable. Rounded fat density between the right and left atria likely represents an intra-atrial septal lipoma, not typically clinically significant. Normal liver. Normal gallbladder and extrahepatic biliary system. Normal spleen. Normal pancreas. Normal bilateral adrenal glands. Punctate calcification in the right kidney measuring 2 mm on image 45. Left kidney is surgically absent. No hydronephrosis or solid renal masses. Normal visualized stomach. There is a small duodenal diverticulum. No colon wall thickening. There is moderate fecal retention throughout the colon with scattered diverticular changes of the left colon. The appendix is visualized and appears normal. There is diffuse atherosclerotic calcification of the abdominal aorta, without a demonstrated aneurysm. Normal inferior vena cava. Normal retroperitoneum. Normal urinary bladder. There is absence of the uterus consistent with a prior hysterectomy. Normal abdominal wall. Degenerative facet related anterolisthesis of L4-L5 (grade 1). No destructive bony process. CT/Abdomen/Pelvis WITH Contrast IMPRESSION: 1. No acute inflammatory process or bowel obstruction. 2. Moderate fecal retention. Diverticulosis without evidence of diverticulitis. 3. Nonobstructing 2 mm right renal calculus. 4. Left nephrectomy. Hysterectomy. Procedure Criteria Procedure Type: Elective COVID Risk Discussion: The surgeon/proceduralist and patient have discussed in detail the risk of exposure to and/or potential harm posed by the COVID-19 virus with having a surgery/procedure at this time versus the risk of delaying the surgery/procedure. It is not possible to know either the risk of delaying the surgery or procedure or chance of getting an infection with perfect accuracy, but a joint decision was made between the patient and the surgeon/proceduralist to proceed at this time with the scheduled surgery/procedure as indicated on the consent form.
[2020-02-24 07:10] VITALS: BP 117/59; BP 143/82; PULSE 77; RESP 16; TEMP 37.1; O2SAT 100
--- NOTE | 2020-02-24 07:12 | OP.CCLET_ITS ---
02/24/2020 Javier Loyola Re : Colonoscopy procedure for Spring Martínez Dear Milla This procedure was performed on Monday, February 24, 2020. My impressions and recommendations are as follows: Impressions : - Preparation of the colon was poor. - Hemorrhoids found on perianal exam. - One 14 mm polyp in the proximal ascending colon, removed with a hot snare, removed using injection-lift and a hot snare and removed piecemeal using a hot snare. Resected and retrieved. Clip was placed. - One 7 mm polyp in the rectum, removed with a hot snare. Resected and retrieved. - One 3 mm polyp in the rectum, removed with a hot snare. Resected and retrieved. - Diverticulosis in the entire examined colon. Severe diverticular disease of sigmoid and descending colon. Difficult to negotiate. Solid stool from diverticulum adding to poor prep Recommendations : - Discharge patient to home. - Resume previous diet. - Continue present medications. - Repeat colonoscopy in 3 years for surveillance based on pathology results and in regards to poor prep - Telephone my office for pathology results in 1 week. My findings are described in the full procedure note, which is enclosed. If I can be of further assistance, please feel free to contact me at Doctor phone number(s): Work: . Sincerely, Abdulaziz Guaman MD 02/24/2020 7:11:34 AM This report has been signed electronically.
--- NOTE | 2020-02-24 07:12 | OP.COLON_ITS ---
Patient Name: Spring Martínez Procedure Date: 02/24/2020 6:08 AM Date of : 1950 Age: 69 Procedure: Colonoscopy Indications: Abdominal pain in the left lower quadrant Providers: Abdulaziz Guaman MD Referring MD: Javier Loyola Medicines: See the Anesthesia note for documentation of the administered medications Patient Profile: Last Colonoscopy: 3 years ago. Complications: No immediate complications. Procedure: Pre-Anesthesia Assessment: - Prior to the procedure, a History and Physical was performed, and patient medications and allergies were reviewed. The patient's tolerance of previous anesthesia was also reviewed. The risks and benefits of the procedure and the sedation options and risks were discussed with the patient. All questions were answered, and informed consent was obtained. Prior Anticoagulants: The patient has taken no previous anticoagulant or antiplatelet agents. ASA Grade Assessment: II - A patient with mild systemic disease. After reviewing the risks and benefits, the patient was deemed in satisfactory condition to undergo the procedure. After I obtained informed consent, the scope was passed under direct vision. Throughout the procedure, the patient's blood pressure, pulse, and oxygen saturations were monitored continuously. The adult colonoscope was introduced through the anus and advanced to the cecum, identified by appendiceal orifice and ileocecal valve. The colonoscopy was somewhat difficult due to poor bowel prep. The patient tolerated the procedure well. The quality of the bowel preparation was poor. The ileocecal valve was photographed. Scope In: 6:33:26 AM Scope Withdrawal Time 0 hours 15 minutes 34 seconds Scope Out: 7:03:01 AM Total Procedure Duration Time 0 hours 29 minutes 35 seconds Findings: Hemorrhoids were found on perianal exam. A 14 mm polyp was found in the proximal ascending colon. The polyp was sessile. The polyp was removed with a hot snare. The polyp was removed with a saline injection-lift technique using a hot snare. The polyp was removed with a piecemeal technique using a hot snare. Resection and retrieval were complete. To prevent bleeding post-intervention, one hemostatic clip was successfully placed. There was no bleeding at the end of the procedure. A 7 mm polyp was found in the rectum. The polyp was semi-sessile. The polyp was removed with a hot snare. Resection and retrieval were complete. A 3 mm polyp was found in the rectum. The polyp was sessile. The polyp was removed with a hot snare. Resection and retrieval were complete. Multiple diverticula were found in the entire colon. Impression: - Preparation of the colon was poor. - Hemorrhoids found on perianal exam. - One 14 mm polyp in the proximal ascending colon, removed with a hot snare, removed using injection-lift and a hot snare and removed piecemeal using a hot snare. Resected and retrieved. Clip was placed. - One 7 mm polyp in the rectum, removed with a hot snare. Resected and retrieved. - One 3 mm polyp in the rectum, removed with a hot snare. Resected and retrieved. - Diverticulosis in the entire examined colon. Severe diverticular disease of sigmoid and descending colon. Difficult to negotiate. Solid stool from diverticulum adding to poor prep Recommendation: - Discharge patient to home. - Resume previous diet. - Continue present medications. - Repeat colonoscopy in 3 years for surveillance based on pathology results and in regards to poor prep - Telephone my office for pathology results in 1 week. Procedure Code(s): --- Professional --- 70375, Colonoscopy, flexible; with removal of tumor(s), polyp(s), or other lesion(s) by snare technique 84750, Colonoscopy, flexible; with directed submucosal injection(s), any substance Diagnosis Code(s): --- Professional --- K64.9, Unspecified hemorrhoids D12.2, Benign neoplasm of ascending colon K62.1, Rectal polyp R10.32, Left lower quadrant pain K57.30, Diverticulosis of large intestine without perforation or abscess without bleeding CPT copyright 2017 [employer]. All rights reserved. The codes documented in this report are preliminary and upon platform software engineer review may be revised to meet current compliance requirements. Abdulaziz Guaman MD 02/24/2020 7:11:34 AM This report has been signed electronically. Number of Addenda: 0 Note Initiated On: 02/24/2020 6:08 AM
[2020-02-24 07:15] VITALS: BP 139/76; BP 143/82; PULSE 77; RESP 16; O2SAT 99
[2020-02-24 07:20] VITALS: BP 143/82; BP 145/80; PULSE 72; RESP 16; O2SAT 100
[2020-02-24 07:25] VITALS: BP 143/82; BP 157/82; PULSE 69; RESP 16; TEMP 36.4; O2SAT 99
[2020-02-24 08:03] VITALS: BP 143/82
== END 2020-02-24 08:04 | disposition home or self-care (01) ==
LOC: EN 05:22 → AC 05:23
PROVIDERS: PCP Nurse Practitioner Family; Referring Provider Nurse Practitioner Family; Visit Provider Surgery
PROC: 0DJD8ZZ Inspection of Lower Intestinal Tract, Via Natural or Artificial Opening Endoscopic (ICD-10-PCS; CPT 45378; principal; 2020-02-24 06:25)
DX: D12.2 Benign neoplasm of ascending colon (principal); D12.8 Benign neoplasm of rectum; K64.9 Unspecified hemorrhoids; K57.30 Diverticulosis of large intestine without perforation or abscess without bleeding; Z11.59 Encounter for screening for other viral diseases; I10 Essential (primary) hypertension; I36.1 Nonrheumatic tricuspid (valve) insufficiency; E66.9 Obesity, unspecified; Z68.33 Body mass index [BMI] 33.0-33.9, adult; L40.9 Psoriasis, unspecified; F32.9 Major depressive disorder, single episode, unspecified; E78.00 Pure hypercholesterolemia, unspecified; M06.9 Rheumatoid arthritis, unspecified; Z78.0 Asymptomatic menopausal state; Z85.3 Personal history of malignant neoplasm of breast; Z90.5 Acquired absence of kidney; Z79.899 Other long term (current) drug therapy
CPT/HCPCS: 45381; 45385; 87426; 88305; C9803; J7120; A4216

== ENCOUNTER → 2020-03-25 16:02 | Outpatient (CLI) | payer MEDICARE, SELFPAY ==
[2017-10-23 09:58] VITALS: BMI 37.2
[2020-02-24 05:41] VITALS: BMI 32.9
[2020-03-25 17:25] LABS: Absolute Lymphocyte Count 3.75 X10^3/uL (0.83-4.51); Absolute Neutrophil Count 5.5 X10^3/uL (2.0-7.7); Basophil# 0.04 X10^3/uL; Basophil% 0.4 % (0-1); Eosinophil# 0.17 X10^3/uL; Eosinophils% 1.7 % (0-5); Hematocrit 38.4 % (37-47); Hemoglobin 12.1 g/dL (12.0-15.0); Lymphocyte # 3.75 X10^3/ul (4.0); Lymphocyte % 36.8 % (19-41); Mean Corp Hgb Conc 31.5 g/dL (32-36); Mean Corpuscular Hgb 29.2 pg (27.0-32.0); Mean Corpuscular Volume 92.8 fL (81-99); Mean Platelet Vol. 9.7 fl (6.2-12.0); Monocyte# 0.67 X10^3/uL; Monocyte% 6.6 % (0-10); NRBC Flagged by Analyzer 0 % (0-5); Neutrophil # 5.51 X10^3/uL (2.7-7.7); Platelet Count 385 K/mm3 (150-450); RBC Distribution Width CV 13.4 % (11.6-14.6); RBC Distribution Width SD 45.6 fl (35.1-43.9); Red Blood Count 4.14 M/mm3 (4.2-5.4); White Blood Count 10.2 K/mm3 (4.4-11.0)
[2020-03-25 17:44] LABS: AST(SGOT) 16 U/L (15-37); Alanine Aminotransfer ALT/SGPT 25 U/L (13-56); Albumin, Serum 3.6 g/dL (3.2-5.0); Alkaline Phosphatase 95 U/L (45-117); Anion Gap 5 (5-15); BUN 13 mg/dL (7-18); BUN/Creat Ratio 19.3 RATIO (10-20); Calcium,Total 9.5 mg/dL (8.5-10.1); Chloride 105 mmol/L (98-107); Creatinine, Serum 0.67 mg/dL (0.55-1.02); EST Glomerular Filtration Rate 92 mL/min (>60); Est Glom Filt Rate - Afr Amer 111 mL/min (>60); Globulin 3.7 g/dL (2.2-4.2); Glucose 83 mg/dL (74-106); Potassium 3.9 mmol/L (3.5-5.1); Protein, Total 7.3 g/dL (6.4-8.2); Sodium Level 140 mmol/L (136-145)
== END ==
LOC: MTLAB 16:04
PROVIDERS: PCP Nurse Practitioner Family; Referring Provider Internal Medicine Rheumatology; Visit Provider Internal Medicine Rheumatology
DX: L40.59 Other psoriatic arthropathy (principal); Z79.899 Other long term (current) drug therapy; M35.00 Sjogren syndrome, unspecified; M79.7 Fibromyalgia; M15.9 Polyosteoarthritis, unspecified; L40.8 Other psoriasis; M21.40 Flat foot [pes planus] (acquired), unspecified foot; Z90.5 Acquired absence of kidney; M47.892 Other spondylosis, cervical region; I10 Essential (primary) hypertension; E78.5 Hyperlipidemia, unspecified
CPT/HCPCS: 36415; 80053; 85025

== ENCOUNTER → 2020-04-13 11:29 | Outpatient (CLI) | payer MEDICARE, SELFPAY ==
[2017-10-23 09:58] VITALS: BMI 37.2
[2019-10-28 13:13] VITALS: BMI 33.7
--- NOTE | 2020-04-13 11:33 | BD_ITS ---
STUDY: DUAL ENERGY X-RAY ABSORPTIOMETRY / DXA REASON FOR EXAM: Female, 70 years old. CODE OFFICIAL- SURGICAL PARTIAL AT 30 YRS OLD -- TAKING AROMATASE INHIBITOR FOR BREAST CANCER -- USES STEROID INHALER NEEDED -- TAKES CALCIUM AND MULTIVITAMIN -- DOES LITTLE EXERCISE -- HX OF RIGHT WRIST FX -- JESSICA OF 1 INCH TECHNIQUE: Bone Mineral Density (BMD) measurements of lumbar spine and bilateral hips were obtained. COMPARISON: None. FINDINGS: Lumbar Spine (L1-L4): g/cm2 (1.164) / T-score (0.0) / Z-score (1.7) Findings are suggestive of normal bone density with a low fracture risk. Left Femur Total: g/cm2 (1.118) / T-score (0.9) / Z-score (2.4) Left Femoral Neck: g/cm2 (0.888) / T-score (-1.1) / Z-score (0.7) Right Femur Total: g/cm2 (1.014) / T-score (0.0) / Z-score (1.6) Right Femoral Neck: g/cm2 (0.877) / T-score (-1.2) / Z-score (0.6) BD/Dexa Bone Density Study IMPRESSION: The patient is considered osteopenic as outlined below according to World Siva Organization (WHO) criteria with a low fracture risk. Reference Information: The T-score is the number of standard deviations above or below the standard which is normal for young adults at their peak bone mineral density. The World Health Organization (WHO) interprets the T-scores as follows: Above -1 Normal bone density Between -1 and -2.5 Osteopenia Equal to / or below -2.5 Osteoporosis As a practical clinical guideline, osteopenia may be graded as follows: Mild -1 through -1.5 Moderate -1.6 through -2.0 Severe -2.1 through -2.4 The Z-score is the number of standard deviations above or below age-matched controls. A Z-score of less than -1.5 would be considered abnormal. References: 1. NIH Osteoporosis and Related Bone Diseases www osteo.org 2. International Society for Clinical Densitometry www iscd.org 3. National Osteoporosis Foundation www nof.org Electronically Signed: [place] Neal, at 10:20 EST , Service support ,
== END ==
PROVIDERS: PCP Nurse Practitioner Family; Referring Provider Internal Medicine Hematology & Oncology; Visit Provider Internal Medicine Hematology & Oncology
DX: C50.912 Malignant neoplasm of unspecified site of left female breast (principal); Z78.0 Asymptomatic menopausal state
CPT/HCPCS: 77080

== ENCOUNTER → 2020-06-10 13:11 | Outpatient (CLI) | payer MEDICARE, SELFPAY ==
[2017-10-23 09:58] VITALS: BMI 37.2
[2020-06-08 12:41] VITALS: BMI 32.9
[2020-06-10 15:13] LABS: Absolute Lymphocyte Count 3.46 X10^3/uL (0.83-4.51); Absolute Neutrophil Count 4.9 X10^3/uL (2.0-7.7); Basophil# 0.05 X10^3/uL; Basophil% 0.5 % (0-1); Eosinophils% 2.1 % (0-5); Hematocrit 40.5 % (37-47); Hemoglobin 12.9 g/dL (12.0-15.0); Lymphocyte # 3.46 X10^3/ul (4.0); Lymphocyte % 36.6 % (19-41); Mean Corp Hgb Conc 31.9 g/dL (32-36); Mean Corpuscular Hgb 28.4 pg (27.0-32.0); Mean Platelet Vol. 9.8 fl (6.2-12.0); Monocyte# 0.77 X10^3/uL; Monocyte% 8.1 % (0-10); NRBC Flagged by Analyzer 0 % (0-5); Neutrophil # 4.94 X10^3/uL (2.7-7.7); Neutrophil % 52.3 % (47-70); Platelet Count 403 K/mm3 (150-450); RBC Distribution Width CV 14.6 % (11.6-14.6); RBC Distribution Width SD 47.6 fl (35.1-43.9); Red Blood Count 4.55 M/mm3 (4.2-5.4); White Blood Count 9.5 K/mm3 (4.4-11.0)
[2020-06-10 15:51] LABS: ALB/GLOB Ratio 0.9 RATIO (0.9-2.4); AST(SGOT) 16 U/L (15-37); Alanine Aminotransfer ALT/SGPT 25 U/L (13-56); Albumin, Serum 3.5 g/dL (3.2-5.0); Alkaline Phosphatase 103 U/L (45-117); Anion Gap 8 (5-15); BUN 20 mg/dL (7-18); BUN/Creat Ratio 26.9 RATIO (10-20); Calcium,Total 9.1 mg/dL (8.5-10.1); Chloride 104 mmol/L (98-107); Creatinine, Serum 0.74 mg/dL (0.55-1.02); EST Glomerular Filtration Rate 82 mL/min (>60); Est Glom Filt Rate - Afr Amer 99 mL/min (>60); Globulin 3.8 g/dL (2.2-4.2); Glucose 115 mg/dL (74-106); Potassium 3.7 mmol/L (3.5-5.1); Protein, Total 7.3 g/dL (6.4-8.2); Sodium Level 139 mmol/L (136-145)
== END ==
PROVIDERS: PCP Nurse Practitioner Family; Referring Provider Internal Medicine Rheumatology; Visit Provider Internal Medicine Rheumatology
DX: L40.59 Other psoriatic arthropathy (principal); Z79.899 Other long term (current) drug therapy; M35.00 Sjogren syndrome, unspecified; M79.7 Fibromyalgia; M15.9 Polyosteoarthritis, unspecified; L40.8 Other psoriasis; M21.40 Flat foot [pes planus] (acquired), unspecified foot; Z90.5 Acquired absence of kidney; M47.892 Other spondylosis, cervical region; E78.5 Hyperlipidemia, unspecified; I10 Essential (primary) hypertension
CPT/HCPCS: 36415; 80053; 85025

== ENCOUNTER 2020-06-14 09:45 | Outpatient (RCR) | payer MEDICARE, SELFPAY ==
[2017-10-23 09:58] VITALS: BMI 37.2
[2020-06-08 12:41] VITALS: BMI 32.9
== END 2020-06-14 23:59 ==
LOC: IMMUN 09:45
PROVIDERS: PCP Nurse Practitioner Family; Referring Provider Family Medicine; Visit Provider Family Medicine
DX: Z23 Encounter for immunization (principal)
CPT/HCPCS: 0011A; 0012A

== ENCOUNTER → 2020-09-15 15:36 | Outpatient (CLI) | payer MEDICARE, SELFPAY ==
[2017-10-23 09:58] VITALS: BMI 37.2
[2020-06-08 12:41] VITALS: BMI 32.9
[2020-09-15 17:42] LABS: Absolute Neutrophil Count 5.8 X10^3/uL (2.0-7.7); Basophil# 0.05 X10^3/uL; Basophil% 0.5 % (0-1); Eosinophil# 0.26 X10^3/uL; Eosinophils% 2.6 % (0-5); Hematocrit 38.4 % (37-47); Hemoglobin 12.3 g/dL (12.0-15.0); Lymphocyte % 32.7 % (19-41); Mean Corpuscular Hgb 28.9 pg (27.0-32.0); Mean Corpuscular Volume 90.4 fL (81-99); Mean Platelet Vol. 9.2 fl (6.2-12.0); Monocyte# 0.68 X10^3/uL; Monocyte% 6.7 % (0-10); NRBC Flagged by Analyzer 0 % (0-5); Neutrophil # 5.75 X10^3/uL (2.7-7.7); Neutrophil % 57.1 % (47-70); Platelet Count 370 K/mm3 (150-450); RBC Distribution Width CV 13.7 % (11.6-14.6); Red Blood Count 4.25 M/mm3 (4.2-5.4); White Blood Count 10.1 K/mm3 (4.4-11.0)
[2020-09-15 18:08] LABS: ALB/GLOB Ratio 0.9 RATIO (0.9-2.4); AST(SGOT) 24 U/L (15-37); Alanine Aminotransfer ALT/SGPT 30 U/L (13-56); Albumin, Serum 3.5 g/dL (3.2-5.0); Alkaline Phosphatase 89 U/L (45-117); Anion Gap 8 (5-15); BUN 20 mg/dL (7-18); BUN/Creat Ratio 23.3 RATIO (10-20); Calcium,Total 9.2 mg/dL (8.5-10.1); Chloride 104 mmol/L (98-107); Creatinine, Serum 0.86 mg/dL (0.55-1.02); EST Glomerular Filtration Rate 69 mL/min (>60); Est Glom Filt Rate - Afr Amer 83 mL/min (>60); Globulin 3.8 g/dL (2.2-4.2); Glucose 96 mg/dL (74-106); Potassium 3.9 mmol/L (3.5-5.1); Protein, Total 7.3 g/dL (6.4-8.2); Sodium Level 141 mmol/L (136-145)
== END ==
PROVIDERS: PCP Nurse Practitioner Family; Referring Provider Internal Medicine Rheumatology; Visit Provider Internal Medicine Rheumatology
DX: L40.59 Other psoriatic arthropathy (principal); Z79.899 Other long term (current) drug therapy; M35.00 Sjogren syndrome, unspecified; M79.7 Fibromyalgia; M15.9 Polyosteoarthritis, unspecified; L40.8 Other psoriasis; M21.40 Flat foot [pes planus] (acquired), unspecified foot; Z90.5 Acquired absence of kidney; M47.892 Other spondylosis, cervical region; I10 Essential (primary) hypertension; E78.5 Hyperlipidemia, unspecified
CPT/HCPCS: 36415; 80053; 85025

== ENCOUNTER → 2020-12-07 10:33 | Outpatient (CLI) | payer MEDICARE, SELFPAY ==
[2017-10-23 09:58] VITALS: BMI 37.2
[2020-12-07 12:15] LABS: Absolute Lymphocyte Count 2.83 X10^3/uL (0.83-4.51); Absolute Neutrophil Count 5.2 X10^3/uL (2.0-7.7); Basophil# 0.04 X10^3/uL; Basophil% 0.4 % (0-1); Eosinophil# 0.25 X10^3/uL; Eosinophils% 2.8 % (0-5); Hemoglobin 12.3 g/dL (12.0-15.0); Lymphocyte # 2.83 X10^3/ul (0.83-4.51); Lymphocyte % 31.3 % (19-41); Mean Corp Hgb Conc 31.5 g/dL (32-36); Mean Platelet Vol. 9.7 fl (6.2-12.0); Monocyte# 0.66 X10^3/uL; Monocyte% 7.3 % (0-10); NRBC Flagged by Analyzer 0 % (0-5); Neutrophil % 57.6 % (47-70); Platelet Count 328 K/mm3 (150-450); RBC Distribution Width CV 13.9 % (11.6-14.6); RBC Distribution Width SD 47.3 fl (35.1-43.9); Red Blood Count 4.24 M/mm3 (4.2-5.4)
[2020-12-07 12:52] LABS: ALB/GLOB Ratio 0.9 RATIO (0.9-2.4); AST(SGOT) 20 U/L (15-37); Alanine Aminotransfer ALT/SGPT 26 U/L (13-56); Albumin, Serum 3.5 g/dL (3.2-5.0); Alkaline Phosphatase 86 U/L (45-117); Anion Gap 5 (5-15); BUN 14 mg/dL (7-18); BUN/Creat Ratio 20.2 RATIO (10-20); Calcium,Total 8.9 mg/dL (8.5-10.1); Chloride 102 mmol/L (98-107); Creatinine, Serum 0.69 mg/dL (0.55-1.02); EST Glomerular Filtration Rate 88 mL/min (>60); Est Glom Filt Rate - Afr Amer 107 mL/min (>60); Globulin 3.8 g/dL (2.2-4.2); Glucose 88 mg/dL (74-106); Potassium 4.4 mmol/L (3.5-5.1); Protein, Total 7.3 g/dL (6.4-8.2); Sodium Level 137 mmol/L (136-145)
== END ==
PROVIDERS: PCP Nurse Practitioner Family; Referring Provider Internal Medicine Rheumatology; Visit Provider Internal Medicine Rheumatology
DX: L40.59 Other psoriatic arthropathy (principal); Z79.899 Other long term (current) drug therapy; M35.00 Sjogren syndrome, unspecified; M79.7 Fibromyalgia; G56.01 Carpal tunnel syndrome, right upper limb; M15.9 Polyosteoarthritis, unspecified; L40.8 Other psoriasis; M21.40 Flat foot [pes planus] (acquired), unspecified foot; Z90.5 Acquired absence of kidney; M47.892 Other spondylosis, cervical region; I10 Essential (primary) hypertension; E78.5 Hyperlipidemia, unspecified
CPT/HCPCS: 36415; 80053; 85025

== ENCOUNTER → 2021-03-01 15:09 | Outpatient (CLI) | payer MEDICARE, SELFPAY ==
[2017-10-23 09:58] VITALS: BMI 37.2
[2021-03-01 17:44] LABS: Absolute Lymphocyte Count 2.97 X10^3/uL (0.83-4.51); Absolute Neutrophil Count 5.5 X10^3/uL (2.0-7.7); Basophil# 0.05 X10^3/uL; Basophil% 0.5 % (0-1); Eosinophil# 0.23 X10^3/uL; Eosinophils% 2.4 % (0-5); Lymphocyte # 2.97 X10^3/ul (0.83-4.51); Lymphocyte % 31.2 % (19-41); Mean Corp Hgb Conc 31.7 g/dL (32-36); Mean Corpuscular Hgb 29.1 pg (27.0-32.0); Mean Corpuscular Volume 91.7 fL (81-99); Mean Platelet Vol. 10.1 fl (6.2-12.0); Monocyte% 7.4 % (0-10); NRBC Flagged by Analyzer 0 % (0-5); Neutrophil # 5.53 X10^3/uL (2.7-7.7); Neutrophil % 58.1 % (47-70); Platelet Count 357 K/mm3 (150-450); RBC Distribution Width SD 46.8 fl (35.1-43.9); Red Blood Count 4.47 M/mm3 (4.2-5.4); White Blood Count 9.5 K/mm3 (4.4-11.0)
[2021-03-01 17:56] LABS: ALB/GLOB Ratio 0.9 RATIO (0.9-2.4); AST(SGOT) 26 U/L (15-37); Alanine Aminotransfer ALT/SGPT 32 U/L (13-56); Albumin, Serum 3.5 g/dL (3.2-5.0); Alkaline Phosphatase 89 U/L (45-117); Anion Gap 8 (5-15); BUN 19 mg/dL (7-18); BUN/Creat Ratio 23.5 RATIO (10-20); Calcium,Total 9.2 mg/dL (8.5-10.1); Chloride 102 mmol/L (98-107); Creatinine, Serum 0.81 mg/dL (0.55-1.02); EST Glomerular Filtration Rate 74 mL/min (>60); Est Glom Filt Rate - Afr Amer 89 mL/min (>60); Globulin 4.1 g/dL (2.2-4.2); Glucose 116 mg/dL (74-106); Potassium 4.1 mmol/L (3.5-5.1); Protein, Total 7.6 g/dL (6.4-8.2); Sodium Level 138 mmol/L (136-145)
== END ==
LOC: MTLAB 15:10
PROVIDERS: PCP Nurse Practitioner Family; Referring Provider Internal Medicine Rheumatology; Visit Provider Internal Medicine Rheumatology
DX: L40.59 Other psoriatic arthropathy (principal); Z79.899 Other long term (current) drug therapy; M35.00 Sjogren syndrome, unspecified; M79.7 Fibromyalgia; G56.01 Carpal tunnel syndrome, right upper limb; M15.9 Polyosteoarthritis, unspecified; L40.8 Other psoriasis; M21.40 Flat foot [pes planus] (acquired), unspecified foot; Z90.5 Acquired absence of kidney; M47.892 Other spondylosis, cervical region; I10 Essential (primary) hypertension; E78.5 Hyperlipidemia, unspecified
CPT/HCPCS: 36415; 80053; 85025

== ENCOUNTER → 2021-03-30 12:53 | Outpatient (CLI) | payer MEDICARE, SELFPAY ==
[2017-10-23 09:58] VITALS: BMI 37.2
--- NOTE | 2021-03-30 12:59 | EKG12_ITS ---
Test Reason : PREOP Blood Pressure : / mmHG Vent. Rate : 082 BPM Atrial Rate : 082 BPM P-R Int : 166 ms QRS Dur : 084 ms QT Int : 366 ms P-R-T Axes : 022 007 041 degrees QTc Int : 427 ms Normal sinus rhythm Normal ECG Confirmed by IRA BURNETTE, CHONG ([id number]), material expeditor KIRILL WHITE ([id number]) on 04/01/2021 1:01:12 PM Referred By: Zachariah Alvarez Confirmed By:CHONG ROTH MD
[2021-03-30 14:10] LABS: Absolute Lymphocyte Count 4.83 X10^3/uL (0.83-4.51); Absolute Neutrophil Count 7.8 X10^3/uL (2.0-7.7); Basophil# 0.05 X10^3/uL; Basophil% 0.4 % (0-1); Eosinophil# 0.15 X10^3/uL; Eosinophils% 1.1 % (0-5); Hematocrit 40.8 % (37-47); Hemoglobin 13.3 g/dL (12.0-15.0); Lymphocyte # 4.83 X10^3/ul (0.83-4.51); Lymphocyte % 34.5 % (19-41); Mean Corp Hgb Conc 32.6 g/dL (32-36); Mean Corpuscular Hgb 29.3 pg (27.0-32.0); Mean Corpuscular Volume 89.9 fL (81-99); Mean Platelet Vol. 9.3 fl (6.2-12.0); Monocyte# 1.09 X10^3/uL; Monocyte% 7.8 % (0-10); NRBC Flagged by Analyzer 0 % (0-5); Neutrophil % 55.6 % (47-70); Platelet Count 376 K/mm3 (150-450); RBC Distribution Width CV 14.2 % (11.6-14.6); RBC Distribution Width SD 46.6 fl (35.1-43.9); Red Blood Count 4.54 M/mm3 (4.2-5.4)
[2021-03-30 14:25] LABS: Hemoglobin A1c 5.8 % (3.8-5.6)
[2021-03-30 14:52] LABS: Anion Gap 6 (5-15); BUN 24 mg/dL (7-18); BUN/Creat Ratio 33.2 RATIO (10-20); Calcium,Total 9.2 mg/dL (8.5-10.1); Chloride 106 mmol/L (98-107); Creatinine, Serum 0.72 mg/dL (0.55-1.02); EST Glomerular Filtration Rate 84 mL/min (>60); Est Glom Filt Rate - Afr Amer 102 mL/min (>60); Glucose 94 mg/dL (74-106); Sodium Level 139 mmol/L (136-145)
== END ==
LOC: PSN 12:57
PROVIDERS: PCP Nurse Practitioner Family; Referring Provider Physician Assistant; Visit Provider Physician Assistant
DX: Z01.818 Encounter for other preprocedural examination (principal); Z01.810 Encounter for preprocedural cardiovascular examination
CPT/HCPCS: 36415; 80048; 83036; 85025; 93005

== ENCOUNTER → 2021-04-04 10:00 | Outpatient (CLI) | payer MEDICARE, SELFPAY ==
[2017-10-23 09:58] VITALS: BMI 37.2
--- NOTE | 2021-04-04 10:02 | BI_ITS ---
MAMMOGRAPHY - BILATERAL SCREENING REASON FOR EXAM: Female, 71 years old. Routine annual screening examination. PERTINENT HISTORY: Personal history of breast cancer. Prior left lumpectomy and bilateral breast reduction surgery. TECHNIQUE: Digital bilateral breast caroline (3D mammographic acquisition) in the CC and MLO projections. 2-D mediolateral oblique (MLO) and craniocaudad (CC) views of both breasts were obtained. CAD: Full Field Digital Mammography with Computer Added Detection was performed. COMPARISON: Comparison is made with prior study dated 12/05/2019 and 12/02/2018. FINDINGS: Breast Composition: The breasts are almost entirely fatty. There are no dominant masses or suspicious calcifications. A tissue clip marker is seen in the axillary region of the left breast. Stable small benign appearing bilateral axillary lymph nodes. No other significant abnormalities are identified. There has been no significant change since the prior study. BI/SCRN MAMM (CAD)W/CAROLINE BILAT IMPRESSION: Stable bilateral screening mammogram. Yearly follow-up mammogram recommended. (A) ASSESSMENT CATEGORY: BIRADS Category 2: Benign. A letter regarding these results will be sent to the patient by the facility within 30 days. Approximately 10% of breast cancers are not detected by mammography. A normal mammogram should not delay biopsy of a clinically suspicious abnormality. [id number] Electronically Signed: Salinas Neal MD at 11:05 EST , Service support ,
== END ==
PROVIDERS: PCP Nurse Practitioner Family; Visit Provider Internal Medicine Hematology & Oncology
DX: Z12.31 Encounter for screening mammogram for malignant neoplasm of breast (principal)
CPT/HCPCS: 77063; 77067

== ENCOUNTER → 2021-04-12 10:23 | Outpatient (CLI) | payer MEDICARE, SELFPAY ==
[2017-10-23 09:58] VITALS: BMI 37.2
[2021-04-12 10:41] LABS: Absolute Lymphocyte Count 2.32 X10^3/uL (0.83-4.51); Absolute Neutrophil Count 6.7 X10^3/uL (2.0-7.7); Basophil# 0.02 X10^3/uL; Basophil% 0.2 % (0-1); Eosinophil# 0.17 X10^3/uL; Eosinophils% 1.7 % (0-5); Hematocrit 37.2 % (37-47); Hemoglobin 12.1 g/dL (12.0-15.0); Lymphocyte # 2.32 X10^3/ul (0.83-4.51); Lymphocyte % 23.4 % (19-41); Mean Corp Hgb Conc 32.5 g/dL (32-36); Mean Corpuscular Hgb 29.1 pg (27.0-32.0); Mean Corpuscular Volume 89.4 fL (81-99); Mean Platelet Vol. 8.7 fl (6.2-12.0); Monocyte# 0.73 X10^3/uL; Monocyte% 7.4 % (0-10); NRBC Flagged by Analyzer 0 % (0-5); Neutrophil # 6.67 X10^3/uL (2.7-7.7); Neutrophil % 67.1 % (47-70); Platelet Count 299 K/mm3 (150-450); RBC Distribution Width CV 14.5 % (11.6-14.6); RBC Distribution Width SD 47.6 fl (35.1-43.9); Red Blood Count 4.16 M/mm3 (4.2-5.4); White Blood Count 9.9 K/mm3 (4.4-11.0)
== END ==
LOC: LAB 10:22 → LAB.FUTURE 10:23 → LAB 10:24
PROVIDERS: PCP Nurse Practitioner Family; Referring Provider Orthopaedic Surgery; Visit Provider Orthopaedic Surgery
DX: D64.9 Anemia, unspecified (principal); M17.11 Unilateral primary osteoarthritis, right knee
CPT/HCPCS: 36415; 85025

== ENCOUNTER → 2021-04-13 | Outpatient (CLI) | payer MEDICARE, SELFPAY ==
[2017-10-23 09:58] VITALS: BMI 37.2
--- NOTE | 2021-04-13 08:30 | KNEE_PTH ---
PATIENT: [facility]ILIANA COURTNEY [facility] U[facility][id number] AGE/SX: 71/F ROOM: RE04/13/[address]: Dr. Jonas Jacome DO : 1950 BED: DIS: 04/13/2021 SPEC #: [id number] RECD: 04/13/21 15:08 STATUS: RAMSEY REQ #: [id number] ALEK: 04/13/21 08:[address]: Jonas Jacome DEPT: SURGICAL PATHOLOGY RECD BY: Demetria Kendall ENTERED: 04/14/21 12:41 SP TYPE: TOTAL KNEE OTHR DR: Javier Loyola, REINIER-Stefano [facility] Tissues: Knee, NOS Procedures: Decalcification bone/plaque Surgery Specimen Level IV HEADER OPERATION: Robotic assisted right total knee arthroplasty PRE-OP DIAGNOSIS: Unilateral primary osteoarthritis right knee TISSUE SUBMITTED: Bone and soft tissue right knee MICROSCOPIC DIAGNOSIS Bone and soft tissue, right knee, total knee replacement/resection: Pieces of bone with degenerative osteoarthritic changes. Fibroadipose tissue, fibroconnective tissue and reactive synovial tissue. DINO:ramin 04/20/2021 MICROSCOPIC DESCRIPTION Slides are reviewed. GROSS DESCRIPTION Received is one container designated bone and soft tissue right knee. The specimen consists of multiple fragments of salinas-yellow bone measuring in aggregate 9 x 9.5 x 3 cm. Also in the specimen container are multiple fragments of yellow-white soft tissue measuring in aggregate 9 x 8 x 3 cm. A number of bony fragments contain articular surfaces consistent with tibial plateau and femoral condyle and displaying prominent osteophyte formation, eburnation, and bone erosion. Oracle Developer sections are submitted in two cassettes as follows: 1 - soft tissue, 2 - bone after decalcification. / DINO:ramin 04/14/21 TC:5 [facility]: [id number], [id number]
== END | disposition home or self-care (01) ==
LOC: LABSPEC 15:31
PROVIDERS: PCP Nurse Practitioner Family; Visit Provider Orthopaedic Surgery
DX: M17.11 Unilateral primary osteoarthritis, right knee (principal)
CPT/HCPCS: 88305; 88311

== ENCOUNTER 2021-04-27 09:24 | Day surgery (SDC) | payer MEDICARE, SELFPAY ==
[2017-10-23 09:58] VITALS: BMI 37.2
[2021-04-27] VITALS (7 sets, daily range): BP systolic 110–157; BP diastolic 53–134; PULSE 73–94; RESP 16; TEMP 36.4–36.6; O2SAT 97–100; BMI 32.9
[2021-04-27] MEDS: Lactated Ringers 1,000 ML 15 ML IV (10:10)
--- NOTE | 2021-04-27 10:10 | PCM.HP.BLA ---
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 Required: No Is patient in pain?: No Allergies methylene blue Allergy (Intermediate, Verified 04/22/21 08:10) Other Penicillins Allergy (Intermediate, Verified 04/22/21 08:10) itching Medications calcium carbonate 600 mg calcium (1,500 mg) tablet 600 mg PO QDAY tab 08/21/17 [History Confirmed 04/22/21] cholecalciferol (vitamin D3) 50 mcg (2,000 unit) capsule 2,000 unit PO QDAY 08/21/17 [History Confirmed 04/22/21] duloxetine 30 mg capsule,delayed release 30 mg PO QDAY 08/21/17 [History Confirmed 04/22/21] fluticasone propionate 50 mcg/actuation nasal spray,suspension 1 spray INTRANASAL PRN PRN 08/21/17 [History Confirmed 04/22/21] folic acid 1 mg tablet 2 mg PO QDAY 08/21/17 [History Confirmed 04/22/21] lovastatin 40 mg tablet 40 mg PO QDAY 08/21/17 [History Confirmed 04/22/21] methotrexate sodium 2.5 mg tablet 8 mg PO QWEEK tab 08/21/17 [History Confirmed 04/22/21] turmeric root extract 500 mg capsule 500 mg PO BID 08/21/17 [History Confirmed 04/22/21] betamethasone dipropionate 15 g TP BID PRN 01/27/20 [History Confirmed 04/22/21] leucovorin calcium 150 mg PO QWEEK 01/27/20 [History Confirmed 04/22/21] melatonin 10 mg PO QHS 01/27/20 [History Confirmed 04/22/21] tramadol 50 mg PO Q6H PRN PRN 01/27/20 [History Confirmed 04/22/21] valsartan 1 tab PO DAILY 01/27/20 [History Confirmed 04/22/21] anastrozole 1 mg tablet 1 mg PO DAILY 90 Days #90 tab 10/21/20 [Rx Confirmed 04/22/21] Is last menstrual period known: No Post menopausal: Yes Patient : No PFSH Medical History (Updated 04/22/21 @ 10:[address] Abdulaziz Guaman MD) Breast cancer DJD (degenerative joint disease) Heart murmur HTN (hypertension) Hyperlipidemia Mitral regurgitation Obesity Occult blood positive stool Psoriasis Tinnitus Tricuspid regurgitation Surgical History History of cataract surgery History of kidney removal History of lumpectomy History of lumpectomy of left breast (~09/06/17) S/P hysterectomy with oophorectomy Status post breast reduction Family History Mother Diabetes CAD (coronary artery disease) CHF (congestive heart failure) Hypertension Sister Throat cancer Social History Smoking Status: Never smoker alcohol intake: never HPI HPI HPI: LILIANA COURTNEY, is a 71 F who presents to the office today for surgical consultation regarding chronic constipation. Dr. 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 Patient had a colonoscopy 2016 and 2019. Hemorrhoids and diverticular disease noted. The next screening exam advised for 2022. The patient's complaint of chronic gastroesophageal reflux disease and dark stools. The patient is on methotrexate for psoriatic arthritis. She may be initiating Biologics. She is being referred to at least consider a esophagogastroduodenoscopy. The chronic constipation is an additional concern. Laboratory as of April 12, 2021 shows a white blood cell count of 9.9 with a hemoglobin 12.1 hematocrit 37.2 platelet count 299,000. Recent BUN is 24 with a creatinine of 0.72 She is complaining of a change in stool habit. Complains of mucus per rectum. This is then followed by abdominal bloating intermittent diarrhea. She has been having upper abdominal generalized abdominal pain. She has recently had a right total knee replacement. She was on oxycodone. She has since stopped that. Her previous colonoscopy February 24, 2020 showed fragments of tubulovillous adenoma. Her that was in her proximal ascending colon. She had a rectal polyp that was a tubular adenoma. She is still recovering from her right total knee replacement. Exam Const General: cooperative and no acute distress Other: Patient generally appears uncomfortable. She walks with the right leg stiff. HENMT Head: normal to inspection Eyes General: appearance normal, both eyes and all related structures Resp Effort & Inspection: normal respiratory effort Auscultation: clear to auscultation bilaterally Cardio Rate: regular rate Rhythm: regular rhythm GI Palpation: soft and no hepatosplenomegaly Musc Cervical Spine: normal cervical lordosis Neuro General: patient alert and patient awake Extrem General: no calf tenderness Psych Appearance: grossly normal Assessment and Plan Assessment and Plan (1) Occult blood positive stool: Status: Acute (2) Change in bowel habit: Status: Acute (3) Abdominal pain: Status: Acute Qualifiers: Abdominal location: generalized Qualified Code(s): R10.84 - Generalized abdominal pain Orders: Orders: Colonoscopy Today R19.5 EGD Today R19.5 Plan - Dr. Abdulaziz Guaman MD: Generalized abdominal pain. Hemoccult positive stool. Personal history of tubulovillous adenoma of the ascending colon. Recent right total knee replacement I recommend to the patient a combined esophagogastroduodenoscopy with possible biopsy and colonoscopy with possible biopsy or polypectomy as indicated. She is aware of the technique, benefit, risk of alternatives. Because of the recent right total knee replacement I recommend to her Ancef 2 g IV on-call for the procedure. We will utilize monitored anesthesia care. Her had respiratory illness requiring antibiotics and has had subsequent change of bowel habit. Stool for analysis recommended and subsequent colonoscopy as well I appreciate the ongoing opportunity of assisting with her surgical care Copy: Ellis Loyola, FILIBERTO Guaman M.D., F.A.C.S. I have re-examined the patient. There are no clinical changes since date of exam. Abdulaziz Guaman M.D., F.A.C.S.
--- NOTE | 2021-04-27 10:30 | EGD_PTH ---
PATIENT: LILIANA COURTNEY LOC: EN U#:[id number] AGE/SX: 71/F ROOM: RE04/27/[address]: Dr. Abdulaziz Guaman MD : 1950 BED: DIS: 04/27/2021 SPEC #: [id number] RECD: 04/27/21 12:33 STATUS: RAMSYE JAMES #: [id number] ALEK: 04/27/21 10:[address]: Abdulaziz Guaman DEPT: SURGICAL PATHOLOGY RECD BY: Demetria Kendall ENTERED: 04/27/21 13:16 SP TYPE: EGD BIOPSY OT DR: Javier Loyola, COIN MACHINE OPERATOR-C Tissues: A - Duodenum, NOS B - Gastric mucous membrane C - Esophagus, NOS D - COLON BIOPSY E - Transverse colon Procedures: Surgery Specimen Level IV HEADER OPERATION: [place] [place] DIAGNOSIS: Occult blood positive stool, change in bowel habit, abdominal pain TISSUE SUBMITTED: A ? Duodenum biopsy, B ? Antrum biopsy for H. pylori and path, C ? Distal esophagus biopsy, D ? Random colon biopsies, E ? Proximal transverse colon big sessile polyp biopsy MICROSCOPIC DIAGNOSIS A. Duodenum, biopsy: No pathologic change. B. Gastric antrum, biopsy: Chronic gastritis. See comment. C. Distal esophagus, biopsy: No pathologic change. No evidence of goblet cell metaplasia. See comment. D. Colon, random biopsy: Mild melanosis coli. E. Transverse colon polyp, biopsy: Fragments of hyperplastic polyp. AM:ramin 04/29/2021 COMMENT B. The results of immunohistochemistry for Helicobacter pylori will be reported separately ([id number]). C. Alcian blue/PAS stain with matched control supports the above diagnosis. MICROSCOPIC DESCRIPTION Slides are reviewed. GROSS DESCRIPTION A - Received in fixative is one container labeled with the patient's name and designated duodenum biopsy. The specimen consists of one irregular fragment of light [place] soft tissue that measures 0.5 x 0.3 x 0.1 cm. The specimen is totally submitted in one cassette. B - Received in fixative is one container labeled with the patient's name and designated antrum biopsy. The specimen consists of one irregular fragment of light [place] soft tissue that measures 0.5 x 0.5 x 0.1 cm. The specimen is totally submitted in one cassette. C - Received in fixative is one container labeled with the patient's name and designated distal esophagus biopsy. The specimen consists of one irregular fragment of light [place] soft tissue that measures 0.5 x 0.3 x 0.1 cm. The specimen is totally submitted in one cassette. D - Received in fixative is one container labeled with the patient's name and designated random colon biopsy. The specimen consists of multiple irregular fragments of light [place] soft tissue that in aggregate measure 1 x 0.7 x 0.1 cm. The specimen is totally submitted in one cassette. E - Received in fixative is one container labeled with the patient's name and designated proximal transverse colon biopsy. The specimen consists of multiple irregular fragments of light [place] soft tissue that in aggregate measure 1 x 0.5 x 0.1 cm. The specimen is totally submitted in one cassette. / AM:ramin 04/28/2021 TC:5 CPT: 47622 x5, 82316
--- NOTE | 2021-04-27 10:30 | IMM_PTH ---
PATIENT: LILIANA COURTNEY LOC: EN U#:[id number] AGE/SX: 71/F ROOM: RE04/27/[address]: Dr. Abdulaziz Guaman MD : 1950 BED: DIS: 04/27/2021 SPEC #: [id number] RECD: 04/27/21 14:28 STATUS: RAMSEY REQ #: [id number] ALEK: 04/27/21 10:[address]: Abdulaziz Guaman DEPT: IMMUNOHISTOCHEMISTRY RECD BY: Bettye Masters ENTERED: 04/27/21 14:29 SP TYPE: IMMUNO OTHR DR: Javier Loyola, TIRE MANAGER-C Tissues: B - Stomach, NOS Procedures: H Pylori (initial) PHYSICIAN & INSTITUTION [place] [id number] SPECIMEN INFORMATION: Tissue Source: B ? Antrum biopsy Clinical Info: Occult blood positive stool, change in bowel habit, abdominal pain Specimen Number: [id number] CPT code: 35971 METHODOLOGY: Deparaffinized sections of prefer/formalin-fixed tissue or PAP/DQ stained slides are incubated with monoclonal/polyclonal antibodies/oligonucleotide probes. Localization is made via biotin free immunoperoxidase method. Appropriate controls are performed and reacted as expected. Results on target cell population are indicated in the following table: RESULTS: ANTIBODY / CLONE RESULT Block B H Pylori (polyclonal) positive, abundant These tests were developed and their performance characteristics determined by [facility]. They may not have been cleared or approved by the U.S. Food and Drug Administration. The FDA has determined that such clearance or approval is not necessary. INTERPRETATION: B. Antrum biopsy: Positive for abundant H. pylori organisms. AM:ramin 04/29/2021
--- NOTE | 2021-04-27 11:16 | OP.CCLET_ITS ---
04/27/2021 Javier Loyola Re : Upper GI endoscopy procedure for Spring Martínez Dear Milla This procedure was performed on Tuesday, April 27, 2021. My impressions and recommendations are as follows: Impressions : - Z-line variable, 38 cm from the incisors. Biopsied. - Medium-sized hiatal hernia. - Erythematous mucosa in the antrum. Biopsied. - Erythematous duodenopathy. Biopsied. Recommendations : - Discharge patient to home. - Resume previous diet. - Continue present medications. - Telephone my office for pathology results in 1 week. My findings are described in the full procedure note, which is enclosed. If I can be of further assistance, please feel free to contact me at Doctor phone number(s): Work: . Sincerely, Abdulaziz Guaman MD 04/27/2021 11:15:38 AM This report has been signed electronically.
--- NOTE | 2021-04-27 11:16 | OP.EGD_ITS ---
Patient Name: Spring Martínez Procedure Date: 04/27/2021 10:23 AM Date of : 1950 Age: 71 Procedure: Upper GI endoscopy Indications: Suspected gastro-esophageal reflux disease Providers: Abdulaziz Guaman MD Medicines: See the Anesthesia note for documentation of the administered medications Complications: No immediate complications. Procedure: Pre-Anesthesia Assessment: - Prior to the procedure, a History and Physical was performed, and patient medications and allergies were reviewed. The patient's tolerance of previous anesthesia was also reviewed. The risks and benefits of the procedure and the sedation options and risks were discussed with the patient. All questions were answered, and informed consent was obtained. Prior Anticoagulants: The patient has taken no previous anticoagulant or antiplatelet agents. ASA Grade Assessment: II - A patient with mild systemic disease. After reviewing the risks and benefits, the patient was deemed in satisfactory condition to undergo the procedure. After obtaining informed consent, the endoscope was passed under direct vision. Throughout the procedure, the patient's blood pressure, pulse, and oxygen saturations were monitored continuously. The gastroscope was introduced through the mouth, and advanced to the second part of duodenum. The upper GI endoscopy was accomplished without difficulty. The patient tolerated the procedure well. Scope In: 10:35:37 AM Scope Out: 10:40:50 AM Total Procedure Duration Time 0 hours 5 minutes 13 seconds Findings: The Z-line was variable and was found 38 cm from the incisors. Biopsies were taken with a cold forceps for histology. A medium-sized hiatal hernia was present. Diffuse mildly erythematous mucosa without bleeding was found in the gastric antrum. Biopsies were taken with a cold forceps for histology. Diffuse mildly erythematous mucosa without active bleeding and with no stigmata of bleeding was found in the duodenal bulb. Biopsies were taken with a cold forceps for histology. Impression: - Z-line variable, 38 cm from the incisors. Biopsied. - Medium-sized hiatal hernia. - Erythematous mucosa in the antrum. Biopsied. - Erythematous duodenopathy. Biopsied. Recommendation: - Discharge patient to home. - Resume previous diet. - Continue present medications. - Telephone my office for pathology results in 1 week. Procedure Code(s): --- Professional --- 64073, Esophagogastroduodenoscopy, flexible, transoral; with biopsy, single or multiple Diagnosis Code(s): --- Professional --- K22.8, Other specified diseases of esophagus K44.9, Diaphragmatic hernia without obstruction or gangrene K31.89, Other diseases of stomach and duodenum CPT copyright 2017 [employer]. All rights reserved. The codes documented in this report are preliminary and upon weighmaster lead review may be revised to meet current compliance requirements. Abdulaziz Guaman MD 04/27/2021 11:15:38 AM This report has been signed electronically. Number of Addenda: 0 Note Initiated On: 04/27/2021 10:23 AM
--- NOTE | 2021-04-27 11:22 | OP.COLON_ITS ---
Patient Name: Spring Martínez Procedure Date: 04/27/2021 10:42 AM Date of : 1950 Age: 71 Procedure: Colonoscopy Indications: Chronic diarrhea Providers: Abdulaziz Guaman MD Medicines: See the Anesthesia note for documentation of the administered medications Patient Profile: Last Colonoscopy: 1 year ago. Complications: No immediate complications. Procedure: Pre-Anesthesia Assessment: - Prior to the procedure, a History and Physical was performed, and patient medications and allergies were reviewed. The patient's tolerance of previous anesthesia was also reviewed. The risks and benefits of the procedure and the sedation options and risks were discussed with the patient. All questions were answered, and informed consent was obtained. Prior Anticoagulants: The patient has taken no previous anticoagulant or antiplatelet agents. ASA Grade Assessment: II - A patient with mild systemic disease. After reviewing the risks and benefits, the patient was deemed in satisfactory condition to undergo the procedure. After I obtained informed consent, the scope was passed under direct vision. Throughout the procedure, the patient's blood pressure, pulse, and oxygen saturations were monitored continuously. The adult colonoscope was introduced through the anus and advanced to the cecum, identified by appendiceal orifice and ileocecal valve. The colonoscopy was technically difficult and complex due to multiple diverticula in the colon. Successful completion of the procedure was aided by changing the patient to a supine position. The patient tolerated the procedure well. The quality of the bowel preparation was poor. The ileocecal valve was photographed. Scope In: 10:45:31 AM Scope Withdrawal Time 0 hours 9 minutes 11 seconds Scope Out: 11:11:07 AM Total Procedure Duration Time 0 hours 25 minutes 36 seconds Findings: The digital rectal exam findings include decreased sphincter tone, non-thrombosed external hemorrhoids, non-thrombosed internal hemorrhoids and internal hemorrhoids that prolapse with straining, but spontaneously regress to the resting position (Grade II). A 14 mm polyp was found in the proximal transverse colon. The polyp was sessile. Biopsies were taken with a cold forceps for histology. Biopsies were taken with a cold forceps for histology. Multiple diverticula were found in the sigmoid colon and descending colon. The exam was otherwise without abnormality. Biopsies for histology were taken with a cold forceps from the entire colon for evaluation of microscopic colitis. Impression: - Preparation of the colon was poor. - Decreased sphincter tone, non-thrombosed external hemorrhoids, non-thrombosed internal hemorrhoids and internal hemorrhoids that prolapse with straining, but spontaneously regress to the resting position (Grade II) found on digital rectal exam. - One 14 mm polyp in the proximal transverse colon. Biopsied. - Diverticulosis in the sigmoid colon and in the descending colon. - The examination was otherwise normal. - Biopsies were taken with a cold forceps from the entire colon for evaluation of microscopic colitis. Recommendation: - Discharge patient to home. - Resume previous diet. - Continue present medications. - Telephone my office for pathology results in 1 week. Poor prep. Severe diverticulosis. Increase soluble fiber. Await biopsies of area of proximal transverse and random biopsies. Suspect medical treatment at this time. - Repeat colonoscopy in 1 year for surveillance based on pathology results. Procedure Code(s): --- Professional --- 27495, Colonoscopy, flexible; with biopsy, single or multiple Diagnosis Code(s): --- Professional --- K64.1, Second degree hemorrhoids K64.4, Residual hemorrhoidal skin tags K62.89, Other specified diseases of anus and rectum D12.3, Benign neoplasm of transverse colon (hepatic flexure or splenic flexure) K52.9, Noninfective gastroenteritis and colitis, unspecified K57.30, Diverticulosis of large intestine without perforation or abscess without bleeding CPT copyright 2017 [employer]. All rights reserved. The codes documented in this report are preliminary and upon svp digital sales food & cooking review may be revised to meet current compliance requirements. Abdulaziz Guaman MD 04/27/2021 11:22:32 AM This report has been signed electronically. Number of Addenda: 0 Note Initiated On: 04/27/2021 10:42 AM
--- NOTE | 2021-04-27 11:23 | OP.CCLET_ITS ---
04/27/2021 Javier Loyola Re : Colonoscopy procedure for Spring Shirleyr Milla This procedure was performed on Tuesday, April 27, 2021. My impressions and recommendations are as follows: Impressions : - Preparation of the colon was poor. - Decreased sphincter tone, non-thrombosed external hemorrhoids, non-thrombosed internal hemorrhoids and internal hemorrhoids that prolapse with straining, but spontaneously regress to the resting position (Grade II) found on digital rectal exam. - One 14 mm polyp in the proximal transverse colon. Biopsied. - Diverticulosis in the sigmoid colon and in the descending colon. - The examination was otherwise normal. - Biopsies were taken with a cold forceps from the entire colon for evaluation of microscopic colitis. Recommendations : - Discharge patient to home. - Resume previous diet. - Continue present medications. - Telephone my office for pathology results in 1 week. Poor prep. Severe diverticulosis. Increase soluble fiber. Await biopsies of area of proximal transverse and random biopsies. Suspect medical treatment at this time. - Repeat colonoscopy in 1 year for surveillance based on pathology results. My findings are described in the full procedure note, which is enclosed. If I can be of further assistance, please feel free to contact me at Doctor phone number(s): Work: . Sincerely, Abdulaziz Guaman MD 04/27/2021 11:22:32 AM This report has been signed electronically.
== END 2021-04-27 23:59 | disposition home or self-care (01) ==
LOC: EN 09:25 → AC 09:26
PROVIDERS: PCP Nurse Practitioner Family; Referring Provider Nurse Practitioner Family; Visit Provider Surgery
PROC: 0DJD8ZZ Inspection of Lower Intestinal Tract, Via Natural or Artificial Opening Endoscopic (ICD-10-PCS; CPT 45378; principal; 2021-04-27 10:25)
DX: K29.50 Unspecified chronic gastritis without bleeding (principal); L40.50 Arthropathic psoriasis, unspecified; K64.8 Other hemorrhoids; K57.30 Diverticulosis of large intestine without perforation or abscess without bleeding; I10 Essential (primary) hypertension; E78.5 Hyperlipidemia, unspecified; K44.9 Diaphragmatic hernia without obstruction or gangrene; K62.1 Rectal polyp; K21.9 Gastro-esophageal reflux disease without esophagitis; K64.4 Residual hemorrhoidal skin tags; K63.5 Polyp of colon; K63.89 Other specified diseases of intestine; Z85.3 Personal history of malignant neoplasm of breast; M19.90 Unspecified osteoarthritis, unspecified site; E66.9 Obesity, unspecified; I34.0 Nonrheumatic mitral (valve) insufficiency; F32.A Depression, unspecified; Z68.32 Body mass index [BMI] 32.0-32.9, adult
CPT/HCPCS: 45380; 43239; 88305; 88342; J7120

== ENCOUNTER 2021-05-16 13:13 | Outpatient (CLI) | payer MEDICARE, SELFPAY ==
[2017-10-23 09:58] VITALS: BMI 37.2
[2021-05-16 15:25] LABS: Absolute Lymphocyte Count 2.92 X10^3/uL (0.83-4.51); Absolute Neutrophil Count 8.7 X10^3/uL (2.0-7.7); Basophil# 0.05 X10^3/uL; Basophil% 0.4 % (0-1); Eosinophils% 1.6 % (0-5); Hematocrit 36.6 % (37-47); Hemoglobin 11.5 g/dL (12.0-15.0); Lymphocyte # 2.92 X10^3/ul (0.83-4.51); Mean Corp Hgb Conc 31.4 g/dL (32-36); Mean Corpuscular Hgb 28.6 pg (27.0-32.0); Mean Platelet Vol. 9.9 fl (6.2-12.0); Monocyte# 0.77 X10^3/uL; Monocyte% 6.1 % (0-10); NRBC Flagged by Analyzer 0 % (0-5); Neutrophil # 8.67 X10^3/uL (2.7-7.7); Neutrophil % 68.3 % (47-70); Platelet Count 399 K/mm3 (150-450); RBC Distribution Width CV 15.6 % (11.6-14.6); RBC Distribution Width SD 51.5 fl (35.1-43.9); Red Blood Count 4.02 M/mm3 (4.2-5.4); White Blood Count 12.7 K/mm3 (4.4-11.0)
[2021-05-16 15:55] LABS: ALB/GLOB Ratio 0.8 RATIO (0.9-2.4); AST(SGOT) 18 U/L (15-37); Alanine Aminotransfer ALT/SGPT 24 U/L (13-56); Albumin, Serum 3.4 g/dL (3.2-5.0); Alkaline Phosphatase 105 U/L (45-117); Anion Gap 7 (5-15); BUN 19 mg/dL (7-18); Calcium,Total 9.1 mg/dL (8.5-10.1); Chloride 103 mmol/L (98-107); Creatinine, Serum 0.83 mg/dL (0.55-1.02); EST Glomerular Filtration Rate 72 mL/min (>60); Est Glom Filt Rate - Afr Amer 87 mL/min (>60); Glucose 138 mg/dL (74-106); Potassium 3.8 mmol/L (3.5-5.1); Protein, Total 7.4 g/dL (6.4-8.2); Sodium Level 137 mmol/L (136-145)
== END 2021-05-16 23:59 | disposition short-term general hospital (02) ==
LOC: MTLAB 13:15
PROVIDERS: PCP Nurse Practitioner Family; Referring Provider Internal Medicine Rheumatology; Visit Provider Internal Medicine Rheumatology
DX: L40.59 Other psoriatic arthropathy (principal); M35.00 Sjogren syndrome, unspecified; M79.7 Fibromyalgia; G56.01 Carpal tunnel syndrome, right upper limb; M15.9 Polyosteoarthritis, unspecified; L40.8 Other psoriasis; M21.40 Flat foot [pes planus] (acquired), unspecified foot; M47.892 Other spondylosis, cervical region; I10 Essential (primary) hypertension; E78.5 Hyperlipidemia, unspecified; Z79.899 Other long term (current) drug therapy; Z90.5 Acquired absence of kidney
CPT/HCPCS: 36415; 80053; 85025

== ENCOUNTER 2021-06-14 11:14 | Outpatient (CLI) | payer MEDICARE, SELFPAY ==
[2017-10-23 09:58] VITALS: BMI 37.2
[2021-06-14 12:25] LABS: Absolute Lymphocyte Count 2.72 X10^3/uL (0.83-4.51); Basophil# 0.05 X10^3/uL; Basophil% 0.5 % (0-1); Eosinophil# 0.21 X10^3/uL; Hematocrit 40.2 % (37-47); Hemoglobin 12.9 g/dL (12.0-15.0); Lymphocyte # 2.72 X10^3/ul (0.83-4.51); Lymphocyte % 25.6 % (19-41); Mean Corp Hgb Conc 32.1 g/dL (32-36); Mean Corpuscular Hgb 29.4 pg (27.0-32.0); Mean Corpuscular Volume 91.6 fL (81-99); Mean Platelet Vol. 9.7 fl (6.2-12.0); Monocyte# 0.64 X10^3/uL; NRBC Flagged by Analyzer 0 % (0-5); Neutrophil # 6.99 X10^3/uL (2.7-7.7); Neutrophil % 65.6 % (47-70); Platelet Count 391 K/mm3 (150-450); RBC Distribution Width CV 15.2 % (11.6-14.6); RBC Distribution Width SD 51.2 fl (35.1-43.9); Red Blood Count 4.39 M/mm3 (4.2-5.4); White Blood Count 10.6 K/mm3 (4.4-11.0)
[2021-06-14 13:09] LABS: ALB/GLOB Ratio 0.9 RATIO (0.9-2.4); AST(SGOT) 16 U/L (15-37); Alanine Aminotransfer ALT/SGPT 20 U/L (13-56); Albumin, Serum 3.5 g/dL (3.2-5.0); Alkaline Phosphatase 101 U/L (45-117); Anion Gap 4 (5-15); BUN 16 mg/dL (7-18); BUN/Creat Ratio 20.9 RATIO (10-20); Calcium,Total 9.5 mg/dL (8.5-10.1); Chloride 107 mmol/L (98-107); Creatinine, Serum 0.76 mg/dL (0.55-1.02); EST Glomerular Filtration Rate 79 mL/min (>60); Est Glom Filt Rate - Afr Amer 95 mL/min (>60); Glucose 115 mg/dL (74-106); Potassium 3.9 mmol/L (3.5-5.1); Protein, Total 7.5 g/dL (6.4-8.2); Sodium Level 140 mmol/L (136-145)
== END 2021-06-14 23:59 | disposition home or self-care (01) ==
LOC: MTLAB 11:17
PROVIDERS: PCP Nurse Practitioner Family; Referring Provider Internal Medicine Rheumatology; Visit Provider Internal Medicine Rheumatology
DX: L40.59 Other psoriatic arthropathy (principal); M35.00 Sjogren syndrome, unspecified; Z79.899 Other long term (current) drug therapy; M79.7 Fibromyalgia; G56.01 Carpal tunnel syndrome, right upper limb; M15.9 Polyosteoarthritis, unspecified; L40.8 Other psoriasis; M21.40 Flat foot [pes planus] (acquired), unspecified foot; Z90.5 Acquired absence of kidney; M47.892 Other spondylosis, cervical region; I10 Essential (primary) hypertension; E78.5 Hyperlipidemia, unspecified
CPT/HCPCS: 36415; 80053; 85025

== ENCOUNTER → 2021-09-14 | Outpatient (CLI) | payer MEDICARE, SELFPAY ==
[2017-10-23 09:58] VITALS: BMI 37.2
[2021-09-14 12:19] LABS: Absolute Lymphocyte Count 2.57 X10^3/uL (0.83-4.51); Absolute Neutrophil Count 5.5 X10^3/uL (2.0-7.7); Basophil# 0.03 X10^3/uL; Basophil% 0.3 % (0-1); Eosinophil# 0.21 X10^3/uL; Eosinophils% 2.3 % (0-5); Hematocrit 38.7 % (37-47); Hemoglobin 12.3 g/dL (12.0-15.0); Lymphocyte # 2.57 X10^3/ul (0.83-4.51); Lymphocyte % 28.3 % (19-41); Mean Corp Hgb Conc 31.8 g/dL (32-36); Mean Corpuscular Hgb 28.3 pg (27.0-32.0); Mean Corpuscular Volume 89.2 fL (81-99); Mean Platelet Vol. 9.7 fl (6.2-12.0); Monocyte# 0.69 X10^3/uL; Monocyte% 7.6 % (0-10); NRBC Flagged by Analyzer 0 % (0-5); Neutrophil # 5.53 X10^3/uL (2.7-7.7); Neutrophil % 61.1 % (47-70); Platelet Count 336 K/mm3 (150-450); RBC Distribution Width CV 14.4 % (11.6-14.6); RBC Distribution Width SD 46.5 fl (35.1-43.9); Red Blood Count 4.34 M/mm3 (4.2-5.4); White Blood Count 9.1 K/mm3 (4.4-11.0)
[2021-09-14 12:38] LABS: ALB/GLOB Ratio 0.9 RATIO (0.9-2.4); AST(SGOT) 19 U/L (15-37); Alanine Aminotransfer ALT/SGPT 23 U/L (13-56); Albumin, Serum 3.6 g/dL (3.2-5.0); Alkaline Phosphatase 91 U/L (45-117); Anion Gap 9 (5-15); BUN 23 mg/dL (7-18); BUN/Creat Ratio 29.8 RATIO (10-20); Calcium,Total 9.2 mg/dL (8.5-10.1); Chloride 102 mmol/L (98-107); Creatinine, Serum 0.77 mg/dL (0.55-1.02); EST Glomerular Filtration Rate 78 mL/min (>60); Est Glom Filt Rate - Afr Amer 94 mL/min (>60); Globulin 4.1 g/dL (2.2-4.2); Glucose 99 mg/dL (74-106); Potassium 4.2 mmol/L (3.5-5.1); Protein, Total 7.7 g/dL (6.4-8.2); Sodium Level 137 mmol/L (136-145)
== END | disposition home or self-care (01) ==
LOC: MTLAB 10:34
PROVIDERS: PCP Nurse Practitioner Family; Referring Provider Internal Medicine Rheumatology; Visit Provider Internal Medicine Rheumatology
DX: L40.59 Other psoriatic arthropathy (principal); M35.00 Sjogren syndrome, unspecified; Z79.899 Other long term (current) drug therapy; M79.7 Fibromyalgia; G56.01 Carpal tunnel syndrome, right upper limb; M15.9 Polyosteoarthritis, unspecified; L40.8 Other psoriasis
CPT/HCPCS: 36415; 80053; 85025

== ENCOUNTER → 2021-09-23 | Outpatient (CLI) | payer MEDICARE, SELFPAY ==
[2017-10-23 09:58] VITALS: BMI 37.2
--- NOTE | 2021-09-23 10:05 | MRI_ITS ---
STUDY: MRI BRAIN WITH AND WITHOUT CONTRAST REASON FOR EXAM: Female, 71 years old. new headaches, imbalance, h/o breast ca TECHNIQUE: Standardized multiplanar fat and water weighted pulse sequences were obtained. IV 19ml Clariscan was administered for the contrast portion of the examination. COMPARISON: None. FINDINGS: Normal size of the ventricles and extra-axial spaces for the patient''s age. Normal white matter tracts of the supratentorial brain. There is no evidence for recent intracranial ischemia or other cause of cytotoxic edema on diffusion weighted imaging (DWI). Normal T2* images of the brain without demonstrated susceptibility artifact. There is no demonstrated hemosiderin stain. Normal bilateral basal ganglia. Normal thalami. There is no extra-axial fluid accumulation. Normal flow voids within the major intracranial circulation suggesting patency by spin echo criteria. Normal venous enhancement. There is no enhancing intra-axial or extra-axial abnormality. Normal sella turcica, pituitary gland, infundibular stalk, optic chiasm and hypothalamus. Normal tectal plate and pineal gland. Normal midbrain, rea and medulla. Normal cerebellum. Normal basal cisterns. Normal bilateral temporal bones. Normal bilateral internal auditory canals. There are bilateral ocular lens implants with otherwise normal intraorbital contents. Normal visualized paranasal sinuses. Normal calvarium and skull base. Normal visualized soft tissue structures. Normal visualized upper cervical spine. MRI/Brain W/WO Contrast IMPRESSION: Normal unenhanced and enhanced MRI of the brain. Electronically Signed: Javier Sierra MD at 11:43 EDT ,
--- NOTE | 2021-09-23 11:34 | RAD_ITS ---
STUDY: X-RAY - RIGHT HUMERUS REASON FOR EXAM: Female, 71 years old. PAIN RUE TECHNIQUE: 2 view(s) of the humerus. COMPARISON: None. FINDINGS: Normal visualized humerus. There is no demonstrated fracture or osseous destructive process. There is no demonstrated soft tissue abnormality. RAD/Humerus min 2 Views IMPRESSION: Normal x-ray examination of the humerus. Electronically Signed: Javier Sierra MD at 11:50 EDT ,
== END | disposition home or self-care (01) ==
LOC: MRI 10:11 → RAD 11:19
PROVIDERS: PCP Nurse Practitioner Family; Referring Provider Nurse Practitioner Family; Visit Provider Nurse Practitioner Family
DX: M79.601 Pain in right arm (principal); G44.52 New daily persistent headache (NDPH); R26.89 Other abnormalities of gait and mobility; R20.0 Anesthesia of skin; R20.2 Paresthesia of skin; Z85.3 Personal history of malignant neoplasm of breast
CPT/HCPCS: 70553; 73060; A9575

== ENCOUNTER → 2021-10-07 | Outpatient (CLI) | payer MEDICARE, SELFPAY ==
[2017-10-23 09:58] VITALS: BMI 37.2
--- NOTE | 2021-10-07 08:13 | NM_ITS ---
CLINICAL: Female, 71 years old. right humeral pain, left hip pain, left breast cancer WHOLE BODY NUCLEAR BONE SCAN TECHNIQUE: Following the IV administration of 25.0 mCi of Tc MDP, whole body bone imaging was performed with a gamma camera following a three hour delay. COMPARISON STUDIES : NM - None. CR - 09/23/2021 CT - Not available for review at this time. MR - Not available for review at this time. US - Not available for review at this time. FINDINGS: Degenerative activity of the bilateral shoulders, wrists, knees and feet as well as throughout the thoracic and lumbar spine, particularly right L4-L5 level. 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 There is a normal concentration of radiopharmaceutical throughout the axial and appendicular skeletal system without either a focal decrease or increase in uptake. NM/Bone Scan Whole Body IMPRESSION: No evidence of osseous metastasis. Multifocal degenerative changes. Electronically Signed: Drake Calvillo MD ([place]) at 10:51 EDT ,
== END | disposition home or self-care (01) ==
PROVIDERS: PCP Nurse Practitioner Family; Visit Provider Nurse Practitioner Family
DX: M79.601 Pain in right arm (principal); Z85.3 Personal history of malignant neoplasm of breast
CPT/HCPCS: 78306; A9503

== ENCOUNTER → 2021-12-15 | Outpatient (CLI) | payer MEDICARE, SELFPAY ==
[2017-10-23 09:58] VITALS: BMI 37.2
[2021-12-15 14:58] LABS: Absolute Lymphocyte Count 2.41 X10^3/uL (0.83-4.51); Absolute Neutrophil Count 5.3 X10^3/uL (2.0-7.7); Basophil# 0.03 X10^3/uL; Basophil% 0.4 % (0-1); Eosinophil# 0.18 X10^3/uL; Eosinophils% 2.2 % (0-5); Hematocrit 39.5 % (37-47); Hemoglobin 12.9 g/dL (12.0-15.0); Lymphocyte # 2.41 X10^3/ul (0.83-4.51); Mean Corp Hgb Conc 32.7 g/dL (32-36); Mean Corpuscular Volume 91.9 fL (81-99); Mean Platelet Vol. 9.8 fl (6.2-12.0); Monocyte% 4.8 % (0-10); NRBC Flagged by Analyzer 0 % (0-5); Neutrophil # 5.25 X10^3/uL (2.7-7.7); Neutrophil % 63.2 % (47-70); Platelet Count 333 K/mm3 (150-450); RBC Distribution Width CV 14.4 % (11.6-14.6); RBC Distribution Width SD 48.3 fl (35.1-43.9); White Blood Count 8.3 K/mm3 (4.4-11.0)
[2021-12-15 15:15] LABS: ALB/GLOB Ratio 0.9 RATIO (0.9-2.4); AST(SGOT) 17 U/L (15-37); Alanine Aminotransfer ALT/SGPT 22 U/L (13-56); Albumin, Serum 3.4 g/dL (3.2-5.0); Alkaline Phosphatase 87 U/L (45-117); Anion Gap 7 (5-15); BUN 13 mg/dL (7-18); Calcium,Total 9.3 mg/dL (8.5-10.1); Chloride 106 mmol/L (98-107); Creatinine, Serum 0.87 mg/dL (0.55-1.02); EST Glomerular Filtration Rate 68 mL/min (>60); Est Glom Filt Rate - Afr Amer 82 mL/min (>60); Globulin 3.7 g/dL (2.2-4.2); Glucose 133 mg/dL (74-106); Protein, Total 7.1 g/dL (6.4-8.2); Sodium Level 142 mmol/L (136-145)
== END | disposition home or self-care (01) ==
LOC: MTLAB 12:48
PROVIDERS: PCP Nurse Practitioner Family; Referring Provider Internal Medicine Rheumatology; Visit Provider Internal Medicine Rheumatology
DX: L40.59 Other psoriatic arthropathy (principal); M35.00 Sjogren syndrome, unspecified; Z79.899 Other long term (current) drug therapy; M79.7 Fibromyalgia; G56.01 Carpal tunnel syndrome, right upper limb; M15.9 Polyosteoarthritis, unspecified; L40.8 Other psoriasis; M21.40 Flat foot [pes planus] (acquired), unspecified foot; Z90.5 Acquired absence of kidney; M47.892 Other spondylosis, cervical region; I10 Essential (primary) hypertension; E78.5 Hyperlipidemia, unspecified
CPT/HCPCS: 36415; 80053; 85025

== ENCOUNTER → 2022-03-10 | Outpatient (CLI) | payer MEDICARE, SELFPAY ==
[2017-10-23 09:58] VITALS: BMI 37.2
[2022-03-10 14:55] LABS: Absolute Lymphocyte Count 3.13 X10^3/uL (0.83-4.51); Absolute Neutrophil Count 4.8 X10^3/uL (2.0-7.7); Basophil# 0.05 X10^3/uL; Basophil% 0.6 % (0-1); Eosinophil# 0.18 X10^3/uL; Hematocrit 40.8 % (37-47); Lymphocyte # 3.13 X10^3/ul (0.83-4.51); Lymphocyte % 34.9 % (19-41); Mean Corp Hgb Conc 31.9 g/dL (32-36); Mean Corpuscular Hgb 29.1 pg (27.0-32.0); Mean Corpuscular Volume 91.5 fL (81-99); Mean Platelet Vol. 9.6 fl (6.2-12.0); Monocyte# 0.76 X10^3/uL; Monocyte% 8.5 % (0-10); NRBC Flagged by Analyzer 0 % (0-5); Neutrophil % 53.6 % (47-70); Platelet Count 361 K/mm3 (150-450); RBC Distribution Width CV 14.6 % (11.6-14.6); RBC Distribution Width SD 48.2 fl (35.1-43.9); Red Blood Count 4.46 M/mm3 (4.2-5.4)
[2022-03-10 15:10] LABS: ALB/GLOB Ratio 1.1 RATIO (0.9-2.4); AST(SGOT) 17 U/L (15-37); Alanine Aminotransfer ALT/SGPT 24 U/L (13-56); Albumin, Serum 3.6 g/dL (3.2-5.0); Alkaline Phosphatase 88 U/L (45-117); Anion Gap 6 (5-15); BUN 20 mg/dL (7-18); BUN/Creat Ratio 29.2 RATIO (10-20); Calcium,Total 9.4 mg/dL (8.5-10.1); Chloride 105 mmol/L (98-107); Creatinine, Serum 0.69 mg/dL (0.55-1.02); EST Glomerular Filtration Rate 89 mL/min (>60); Est Glom Filt Rate - Afr Amer 108 mL/min (>60); Globulin 3.2 g/dL (2.2-4.2); Glucose 102 mg/dL (74-106); Potassium 4.2 mmol/L (3.5-5.1); Protein, Total 6.8 g/dL (6.4-8.2); Sodium Level 141 mmol/L (136-145)
== END | disposition home or self-care (01) ==
LOC: MTLAB 13:31
PROVIDERS: PCP Nurse Practitioner Family; Referring Provider Internal Medicine Rheumatology; Visit Provider Internal Medicine Rheumatology
DX: L40.59 Other psoriatic arthropathy (principal); M35.00 Sjogren syndrome, unspecified; Z79.899 Other long term (current) drug therapy; M79.7 Fibromyalgia; M47.892 Other spondylosis, cervical region; I10 Essential (primary) hypertension; E78.5 Hyperlipidemia, unspecified
CPT/HCPCS: 36415; 80053; 85025

== ENCOUNTER 2022-03-20 13:34 | Outpatient (CLI) | payer MEDICARE, SELFPAY ==
[2017-10-23 09:58] VITALS: BMI 37.2
[2022-03-20 15:29] LABS: Cholesterol 209 mg/dL (200); High Density Lipoprotein 77 mg/dL; Triglycerides 136 mg/dL; Very Low Density Lipoprotein 27 mg/dL (5-40)
[2022-03-20 15:35] LABS: Vitamin D,25 Hydroxy 65.7 ng/mL
== END 2022-03-20 23:59 | disposition home or self-care (01) ==
LOC: MTLAB 13:35
PROVIDERS: PCP Nurse Practitioner Family; Referring Provider Nurse Practitioner Family; Visit Provider Nurse Practitioner Family
DX: I10 Essential (primary) hypertension (principal); R73.01 Impaired fasting glucose; E78.5 Hyperlipidemia, unspecified; E55.9 Vitamin D deficiency, unspecified; D72.829 Elevated white blood cell count, unspecified
CPT/HCPCS: 36415; 80061; 82306

== ENCOUNTER → 2022-04-20 | Outpatient (CLI) | payer MEDICARE, SELFPAY ==
[2017-10-23 09:58] VITALS: BMI 37.2
--- NOTE | 2022-04-20 14:19 | BI_ITS ---
MAMMOGRAPHY - BILATERAL SCREENING REASON FOR EXAM: Female, 72 years old. Routine annual screening examination. PERTINENT HISTORY: Personal history of breast cancer. Prior left lumpectomy and bilateral breast reduction surgery. TECHNIQUE: Digital bilateral breast caroline (3D mammographic acquisition) in the CC and MLO projections. 2-D mediolateral oblique (MLO) and craniocaudad (CC) views of both breasts were obtained. CAD: Full Field Digital Mammography with Computer Added Detection was performed. COMPARISON: Comparison is made with prior study dated 04/04/2021 and 12/05/2019. FINDINGS: Breast Composition: The breasts are almost entirely fatty. There are no dominant masses or suspicious calcifications. A tissue clip marker is seen in the axillary region of the left breast. Stable benign-appearing bilateral axillary lymph nodes. Stable postoperative changes in the deep axillary region of the left breast. No other significant abnormalities are identified. There has been no significant change since the prior study. BI/SCRN MAMM (CAD)W/CAROLINE BILAT IMPRESSION: Stable bilateral screening mammogram. Yearly follow-up mammogram recommended. (A) ASSESSMENT CATEGORY: BIRADS Category 2: Benign. A letter regarding these results will be sent to the patient by the facility within 30 days. Approximately 10% of breast cancers are not detected by mammography. A normal mammogram should not delay biopsy of a clinically suspicious abnormality. [id number] Electronically Signed: Salinas Neal MD at 15:39 EST ,
--- NOTE | 2022-04-20 14:21 | BD_ITS ---
STUDY: DUAL ENERGY X-RAY ABSORPTIOMETRY / DXA REASON FOR EXAM: Female, 72 years old. [id number] TECHNIQUE: Bone Mineral Density (BMD) measurements of lumbar spine and bilateral hips were obtained. COMPARISON: Comparison is made with prior study dated 04/13/2020. FINDINGS: Lumbar Spine (L1-L4): g/cm2 (0.987) / T-score (-0.5) / Z-score (1.8) Findings are suggestive of normal bone density with a low fracture risk. Left Femur Total: g/cm2 (1.004) / T-score (0.5) / Z-score (2.2) Left Femoral Neck: g/cm2 (0.698) / T-score (-1.4) / Z-score (0.7) Right Femur Total: g/cm2 (0.887) / T-score (-0.4) / Z-score (1.3) Right Femoral Neck: g/cm2 (0.704) / T-score (-1.3) / Z-score (0.7) The T-Scores on the most recent prior examination were: Lumbar Spine (L1-L4): There has been worsening of bone density since the previous examination. Left Femur Total: which represents a worsening of 4.3%. Right Femur Total: which represents a worsening of 6.3%. BD/Dexa Bone Density Study IMPRESSION: The patient is considered osteopenic as outlined below according to World Siva Organization (WHO) criteria with a low fracture risk. There has been worsening of bone density since the previous examination. Reference Information: The T-score is the number of standard deviations above or below the standard which is normal for young adults at their peak bone mineral density. The World Health Organization (WHO) interprets the T-scores as follows: Above -1 Normal bone density Between -1 and -2.5 Osteopenia Equal to / or below -2.5 Osteoporosis As a practical clinical guideline, osteopenia may be graded as follows: Mild -1 through -1.5 Moderate -1.6 through -2.0 Severe -2.1 through -2.4 The Z-score is the number of standard deviations above or below age-matched controls. A Z-score of less than -1.5 would be considered abnormal. References: 1. NIH Osteoporosis and Related Bone Diseases www osteo.org 2. International Society for Clinical Densitometry www iscd.org 3. National Osteoporosis Foundation www nof.org Electronically Signed: Salinas Neal MD at 15:05 EST ,
== END | disposition home or self-care (01) ==
LOC: OPBD 14:16
PROVIDERS: PCP Nurse Practitioner Family; Visit Provider Nurse Practitioner Family
DX: Z12.31 Encounter for screening mammogram for malignant neoplasm of breast (principal); Z78.0 Asymptomatic menopausal state
CPT/HCPCS: 77063; 77067; 77080

== ENCOUNTER → 2022-05-03 | Outpatient (CLI) | payer MEDICARE, SELFPAY ==
[2017-10-23 09:58] VITALS: BMI 37.2
--- NOTE | 2022-05-03 16:03 | NEURO ---
NCS and/or EMG Patient Report Ordering Doctor: Sadia Woo DATE OF SERVICE: 05/03/22 Spring presents for electrodiagnostic testing of the right upper limb. She reports pain in the neck radiating to the elbow. Electrodiagnostic findings: Right median motor nerve demonstrates prolonged distal latency with normal amplitude and reduced conduction velocity. Normal right ulnar motor response. Borderline prolonged right median F wave. Prolonged right median sensory latency at the wrist and palm. Normal ulnar and radial sensory responses. On needle EMG, all muscles tested in the right upper limb as well as the right cervical paraspinal showed no evidence of denervation with normal motor unit action potentials. Electrodiagnostic impression: This is an abnormal study in the right upper limb 1. Electrodiagnostic findings suggestive of right-sided median mononeuropathy. This is consistent with a moderate right carpal tunnel syndrome. 2. No electrodiagnostic evidence is noted for cervical radiculopathy.
== END | disposition home or self-care (01) ==
LOC: PSN 15:22
PROVIDERS: PCP Nurse Practitioner Family; Referring Provider Internal Medicine Rheumatology; Visit Provider Internal Medicine Rheumatology
DX: Z79.899 Other long term (current) drug therapy (principal); M35.00 Sjogren syndrome, unspecified; M79.7 Fibromyalgia; G56.01 Carpal tunnel syndrome, right upper limb; M19.041 Primary osteoarthritis, right hand; L40.8 Other psoriasis; M25.511 Pain in right shoulder
CPT/HCPCS: 95886; 95910

== ENCOUNTER → 2022-06-15 | Outpatient (CLI) | payer MEDICARE, SELFPAY ==
[2017-10-23 09:58] VITALS: BMI 37.2
[2022-06-15 12:19] LABS: Absolute Lymphocyte Count 2.77 X10^3/uL (0.83-4.51); Absolute Neutrophil Count 4.4 X10^3/uL (2.0-7.7); Basophil# 0.04 X10^3/uL; Basophil% 0.5 % (0-1); Eosinophil# 0.21 X10^3/uL; Eosinophils% 2.6 % (0-5); Hematocrit 39.6 % (37-47); Hemoglobin 12.3 g/dL (12.0-15.0); Lymphocyte # 2.77 X10^3/ul (0.83-4.51); Lymphocyte % 34.8 % (19-41); Mean Corp Hgb Conc 31.1 g/dL (32-36); Mean Corpuscular Hgb 29.4 pg (27.0-32.0); Mean Corpuscular Volume 94.5 fL (81-99); Mean Platelet Vol. 9.5 fl (6.2-12.0); Monocyte# 0.48 X10^3/uL; NRBC Flagged by Analyzer 0 % (0-5); Neutrophil # 4.43 X10^3/uL (2.7-7.7); Neutrophil % 55.7 % (47-70); Platelet Count 305 K/mm3 (150-450); RBC Distribution Width CV 14.5 % (11.6-14.6); RBC Distribution Width SD 49.1 fl (35.1-43.9); Red Blood Count 4.19 M/mm3 (4.2-5.4)
[2022-06-15 12:54] LABS: ALB/GLOB Ratio 0.9 RATIO (0.9-2.4); AST(SGOT) 18 U/L (15-37); Alanine Aminotransfer ALT/SGPT 26 U/L (13-56); Albumin, Serum 3.3 g/dL (3.2-5.0); Alkaline Phosphatase 79 U/L (45-117); Anion Gap 6 (5-15); BUN 19 mg/dL (7-18); BUN/Creat Ratio 27.8 RATIO (10-20); Calcium,Total 8.9 mg/dL (8.5-10.1); Chloride 107 mmol/L (98-107); Creatinine, Serum 0.68 mg/dL (0.55-1.02); EST Glomerular Filtration Rate 89 mL/min (>60); Est Glom Filt Rate - Afr Amer 108 mL/min (>60); Globulin 3.5 g/dL (2.2-4.2); Glucose 82 mg/dL (74-106); Potassium 4.4 mmol/L (3.5-5.1); Protein, Total 6.8 g/dL (6.4-8.2); Sodium Level 139 mmol/L (136-145)
== END | disposition home or self-care (01) ==
LOC: MTLAB 10:23
PROVIDERS: PCP Nurse Practitioner Family; Referring Provider Internal Medicine Rheumatology; Visit Provider Internal Medicine Rheumatology
DX: L40.59 Other psoriatic arthropathy (principal); Z79.899 Other long term (current) drug therapy
CPT/HCPCS: 36415; 80053; 85025

== ENCOUNTER → 2022-09-06 | Outpatient (CLI) | payer MEDICARE, SELFPAY ==
[2017-10-23 09:58] VITALS: BMI 37.2
[2022-09-06 12:34] LABS: Absolute Lymphocyte Count 2.59 X10^3/uL (0.83-4.51); Absolute Neutrophil Count 5.7 X10^3/uL (2.0-7.7); Basophil# 0.04 X10^3/uL; Basophil% 0.4 % (0-1); Eosinophil# 0.14 X10^3/uL; Eosinophils% 1.5 % (0-5); Hematocrit 41.4 % (37-47); Hemoglobin 13.1 g/dL (12.0-15.0); Lymphocyte # 2.59 X10^3/ul (0.83-4.51); Lymphocyte % 28.5 % (19-41); Mean Corp Hgb Conc 31.6 g/dL (32-36); Mean Corpuscular Hgb 29.9 pg (27.0-32.0); Mean Corpuscular Volume 94.5 fL (81-99); Mean Platelet Vol. 9.4 fl (6.2-12.0); Monocyte# 0.55 X10^3/uL; Monocyte% 6.1 % (0-10); NRBC Flagged by Analyzer 0 % (0-5); Neutrophil # 5.73 X10^3/uL (2.7-7.7); Neutrophil % 63.2 % (47-70); Platelet Count 340 K/mm3 (150-450); RBC Distribution Width CV 14.7 % (11.6-14.6); RBC Distribution Width SD 50.9 fl (35.1-43.9); Red Blood Count 4.38 M/mm3 (4.2-5.4); White Blood Count 9.1 K/mm3 (4.4-11.0)
[2022-09-06 13:13] LABS: ALB/GLOB Ratio 0.9 RATIO (0.9-2.4); AST(SGOT) 21 U/L (15-37); Alanine Aminotransfer ALT/SGPT 30 U/L (13-56); Albumin, Serum 3.5 g/dL (3.2-5.0); Alkaline Phosphatase 90 U/L (45-117); Anion Gap 11 (5-15); BUN 17 mg/dL (7-18); BUN/Creat Ratio 20.8 RATIO (10-20); Calcium,Total 9.4 mg/dL (8.5-10.1); Chloride 105 mmol/L (98-107); Creatinine, Serum 0.82 mg/dL (0.55-1.02); EST Glomerular Filtration Rate 72 mL/min (>60); Est Glom Filt Rate - Afr Amer 88 mL/min (>60); Globulin 4.1 g/dL (2.2-4.2); Glucose 137 mg/dL (74-106); Potassium 3.7 mmol/L (3.5-5.1); Protein, Total 7.6 g/dL (6.4-8.2); Sodium Level 140 mmol/L (136-145)
== END | disposition home or self-care (01) ==
LOC: MTLAB 10:32
PROVIDERS: PCP Nurse Practitioner Family; Referring Provider Internal Medicine Rheumatology; Visit Provider Internal Medicine Rheumatology
DX: L40.59 Other psoriatic arthropathy (principal); Z79.899 Other long term (current) drug therapy
CPT/HCPCS: 36415; 80053; 85025